=== PATIENT | male | born 1965 | race Caucasian/White ===

== ENCOUNTER 2019-12-03 08:34 | Emergency (ER) | payer BC ==
[2019-12-03 09:49] LABS: Basophils % (A) 0 %; Eosinophils # (A) 0.3 k/uL (0-0.7); Eosinophils % (A) 3 %; HCT 37.8 % (39.0-53.0); HGB 12.6 gm/dL (13.0-17.5); Lymphocytes % (A) 11 %; MCHC 33.3 g/dL (31.0-37.0); Mean Platelet Volume 8.2; Monocytes # (A) 0.7 k/uL (0-1.0); Monocytes % (A) 7 %; Neutrophils # (A) 7.3 k/uL (1.3-7.7); Neutrophils % (A) 77 %; Platelet Count 151 k/uL (150-450); RBC 3.94 m/uL (4.30-5.90); RDW 12.6 % (11.5-15.5); WBC 9.5 k/uL (3.8-10.6)
[2019-12-03 10:03] LABS: ALT 20 U/L (4-49); AST 24 U/L (17-59); African American GFR (CKD) >90 (>60 ml/min/1.73 sqM); Albumin 4.2 g/dL (3.5-5.0); Alkaline Phosphatase 105 U/L (38-126); Anion Gap 9 mmol/L; Blood Urea Nitrogen 18 mg/dL (9-20); C Reactive Protein 68.7 mg/L (<10.0); Calcium 9.1 mg/dL (8.4-10.2); Carbon Dioxide 25 mmol/L (22-30); Chloride 100 mmol/L (98-107); Glucose 113 mg/dL (74-99); Non-African American GFR(CKD) >90 (>60 ml/min/1.73 sqM); Potassium 4.1 mmol/L (3.5-5.1); Sodium 134 mmol/L (137-145); Total Bilirubin 0.5 mg/dL (0.2-1.3); Total Protein 7.2 g/dL (6.3-8.2)
--- NOTE | 2019-12-03 10:20 | XR ---
EXAMINATION TYPE: XR elbow complete LT DATE OF EXAM: 12/03/2019 COMPARISON: NONE HISTORY: Pain FINDINGS: Three views of the elbow demonstrate no pathologic joint effusion. The osseous structures are intact . There is no acute fracture or dislocation. Small olecranon spur. IMPRESSION: 1. No acute fracture or dislocation. If symptoms persist follow-up study in 7 to 10 days could be ob tained.
[2019-12-03] MEDS ORDERED: AMPICILLIN-SULBACTAM 3 GM in SODIUM CHLORIDE 0.9% 100 ML IVPB STA (10:32)
--- NOTE | 2019-12-03 10:45 | US ---
EXAMINATION TYPE: US extremity nonvasc mass LT DATE OF EXAM: 12/03/2019 COMPARISON: NONE CLINICAL HISTORY: swelling, pain, r/o abscess vs bursitis. Patient has swelling and redness surrounding his left elbow. This has been going on for 3 days, he zuluaga s no fever. At left elbow there is an irregular shaped hypoechoic area with surrounding increased vascularity daniel suring 3.8 x 0.3 x 2.8cm IMPRESSION: 1. There is an irregular shaped hypoechoic area surrounding area of the left elbow measuring 3.8 cm. Could represent an area of cellulitis, bursitis or developing phlegmon, abscess. Recommend follow-up MRI.
[2019-12-03] MEDS ORDERED: LIDOCAINE 1% INJ 10MG/ML (20 ML MDV) SQ ONE (10:57)
--- NOTE | 2019-12-03 12:07 | ED ---
Upper Extremity HPI - General Chief Complaint: Extremity Injury, Upper Stated Complaint: Arm swollen/red Time Seen by Provider: 12/03/19 08:45 Source: patient Mode of arrival: ambulatory Limitations: no limitations - History of Present Illness Initial Comments: The patient is a 54-year-old male with past medical history of hypertension and hyperlipidemia who presents to the emergency room with reported left elbow swelling. He states that he [place] [address] and suffered a small abrasion to the left lateral aspect of his elbow. Several days ago he formed a scab over the area and ended up removing the scab. Denies any drainage from the site henley norma since he manipulated the scab he has developed redness and swelling to his whole elbow region. He admits that it is minimally painful with movement. He continues to have full normal range of motion movement. Denies any fevers or chills. No nausea or vomiting. Denies any shoulder or wrist pain. The patient is right hand dominant. Denies any weakness in that extremity. Has not taken any medications for her symptoms. No crepitance. Denies any numbness or tingling. There are no alleviating, precipitating or modifying factors - Related Data Home Medications Medication Instructions Recorded Confirmed Cyclobenzaprine [Flexeril] 10 mg PO DAILY PRN 12/03/19 12/03/19 Gemfibrozil [Lopid] 600 mg PO Q12H 12/03/19 12/03/19 Multivitamins, Thera [Multivitamin 1 tab PO DAILY 12/03/19 12/03/19 (formulary)] Naproxen [Naprosyn] 500 mg PO Q12HR PRN 12/03/19 12/03/19 Omeprazole 20 mg PO DAILY PRN 12/03/19 12/03/19 Rosuvastatin [Crestor] 10 mg PO DAILY 12/03/19 12/03/19 amLODIPine BESYLATE/BENAZEPRIL 1 cap PO DAILY 12/03/19 12/03/19 [amLODIPine BESYLATE/BENAZEPRIL 10-20 MG] Previous Rx's Medication Instructions Recorded Cephalexin [Keflex] 500 mg PO QID #28 cap 12/03/19 Allergies Allergy/AdvReac Type Severity Reaction Status Date / Time No Known Allergies Allergy Verified 12/03/19 10:08 Review of Systems ROS Statement: Those systems with pertinent positive or pertinent negative responses have been documented in the HPI. ROS Other: All systems not noted in ROS Statement are negative. Past Medical History Past Medical History: Hyperlipidemia, Hypertension History of Any Multi-Drug Resistant Organisms: None Reported Additional Past Surgical History / Comment(s): rt bicep surgery Past Psychological History: No Psychological Hx Reported Smoking Status: Never smoker Past Alcohol Use History: Daily Past Drug Use History: None Reported General Exam Limitations: no limitations General appearance: alert, in no apparent distress Head exam: Present: atraumatic, normocephalic, normal inspection Respiratory exam: Present: normal lung sounds bilaterally. Absent: respiratory distress, wheezes, rales, rhonchi, stridor Cardiovascular Exam: Present: regular rate, normal rhythm, normal heart sounds. Absent: systolic murmur, diastolic murmur, rubs, gallop, clicks Extremities exam: Present: tenderness, other (redness to skin over left lateral elbow. Palpable fluctuance possible consistent with bursa. No pain with flexion, extention, supination or pronation of the elbow. No joint swelling or tenderness to palpation. No weakness. No concerning signs of septic joint. ) Course Vital Signs 12/03/19 12/03/19 12/03/19 08:42 08:45 09:45 Temperature 98.2 F Pulse Rate 97 91 Respiratory 18 20 20 Rate Blood Pressure 140/85 170/86 O2 Sat by Pulse 97 98 Oximetry 12/03/19 12/03/19 10:00 12:38 Temperature 98 F Pulse Rate 90 71 Respiratory 20 18 Rate Blood Pressure 150/81 148/78 O2 Sat by Pulse 98 98 Oximetry Medical Decision Making - Medical Decision Making Upon arrival the patient is placed in room 7. A thorough history and physical exam is performed. Patient continues to have full normal range of motion without pain therefore septic joint is unlikely. There is mild fluctuance to the posterior aspect of the elbow that may be consistent with a bursitis. Because of the redness and swelling and did recommend some laboratory studies. The patient did have trauma to the area therefore I recommended a x-ray. Ultrasound will be performed to look for a drainable fluid collection. Laboratory studies demonstrated a white blood cell count 9.5. CMP is unremarkable. C-reactive protein elevated at 60.7. Extremity ultrasound demonstrates an irregularly shaped hypoechoic area surrounding the left elbow which measures 3.8 cm. May represent cellulitis, bursitis or developing phlegmon. X-ray demonstrates no gas formation. No acute fracture dislocation. I did recommend attempted drainage of the fluid collection as there is some fluctuance. I do believe this is consistent with possible infected bursitis. The patient does allow me to complete this. Fluid results show 16,625 red blood cells, 1850 nucleated cells with 94 white blood cells. The specimen is sent for culture. I did provide the patient with a dose of Unasyn while in the emergency department. I did recommend treatment at home with Keflex. I provided the patient will follow up information for [facility]. He is to follow with his doctor within 2-4 days and make an appointment with the [facility] within 1 week. She has any new or worsening symptoms he should return to the emergency room. Strict parameters were discussed with him. The patient was then discharged in stable condition - Lab Data Result diagrams: 12/03/19 09:18 12/03/19 09:18 Lab Results 12/03/19 12/03/19 12/03/19 Range/Units 09:18 09:18 12:30 WBC 9.5 (3.8-10.6) k/uL RBC 3.94 L (4.30-5.90) m/uL Hgb 12.6 L (13.0-17.5) gm/dL Hct 37.8 L (39.0-53.0) % MCV 96.0 (80.0-100.0) fL MCH 32.0 (25.0-35.0) pg MCHC 33.3 (31.0-37.0) g/dL RDW 12.6 (11.5-15.5) % Plt Count 151 (150-450) k/uL Neutrophils % 77 % Lymphocytes % 11 % Monocytes % 7 % Eosinophils % 3 % Basophils % 0 % Neutrophils # 7.3 (1.3-7.7) k/uL Lymphocytes # 1.0 (1.0-4.8) k/uL Monocytes # 0.7 (0-1.0) k/uL Eosinophils # 0.3 (0-0.7) k/uL Basophils # 0.0 (0-0.2) k/uL Sodium 134 L (137-145) mmol/L Potassium 4.1 (3.5-5.1) mmol/L Chloride 100 (98-107) mmol/L Carbon Dioxide 25 (22-30) mmol/L Anion Gap 9 mmol/L BUN 18 (9-20) mg/dL Creatinine 0.79 (0.66-1.25) mg/dL Est GFR (CKD-EPI)AfAm >90 (>60 ml/min/1.73 sqM) Est GFR (CKD-EPI)NonAf >90 (>60 ml/min/1.73 sqM) Glucose 113 H (74-99) mg/dL Calcium 9.1 (8.4-10.2) mg/dL Total Bilirubin 0.5 (0.2-1.3) mg/dL AST 24 (17-59) U/L ALT 20 (4-49) U/L Alkaline Phosphatase 105 (38-126) U/L C-Reactive Protein 68.7 H (<10.0) mg/L Total Protein 7.2 (6.3-8.2) g/dL Albumin 4.2 (3.5-5.0) g/dL Fluid Source Synovial Fluid Color [place] Fluid Appearance Blood Tinged Fluid RBC 69181 /uL Fluid Nucleated Cells 1850 /uL Fluid Polynuclear WBCs 94 % Fluid Mononuclear WBCs 6 % Disposition Clinical Impression: Bursitis, Cellulitis of left arm Disposition: HOME SELF-CARE Condition: Stable Instructions (If sedation given, give patient instructions): Cellulitis (ED), Elbow Bursitis (ED) Additional Instructions: Please follow up with your PCP in 2-4 days. Also follow up with the [facility] in 1 week for re-evaluation. Return to the emergency department for any new or worsening symptoms Prescriptions: Cephalexin [Keflex] 500 mg PO QID #28 cap Is patient prescribed a controlled substance at d/c from ED?: No Referrals: Errol Mcmullen MD [Primary Care Provider] - 1-2 days Carmen Velez DO [Doctor of Osteopathic Medicine] - 1-2 days Time of Disposition: 12:06
[2019-12-03 12:39] VITALS: BP 148/78; PULSE 71; RESP 18; TEMP 98
[2019-12-03 14:48] LABS: Appearance,BF Blood Tinged; Color,BF Pink; Nucleated Cells, Body Fluid 1850 /uL; RBC, Body Fluid 16625 /uL
[2019-12-03 14:50] LABS: Mononuclear WBC,Body Fluid 6 %; Polynuclear WBC,Body Fluid 94 %; Total Cells Counted,Body Fluid 100
== END 2019-12-03 12:35 | disposition home or self-care (01) ==
LOC: EC 08:34
DX: M70.32 Other bursitis of elbow, left elbow (principal); L03.114 Cellulitis of left upper limb; I10 Essential (primary) hypertension; E78.5 Hyperlipidemia, unspecified; Z79.899 Other long term (current) drug therapy
CPT/HCPCS: 36415; 80053; 89050; 85025; 86140; 87070; 87205; 87077; 87186; 73080; 76882; 99284; 96365; 20606; J2001; J0295

== ENCOUNTER 2022-08-05 15:26 | Inpatient (IN) | payer BC ==
[2022-08-05] MEDS ORDERED: SODIUM CHLORIDE 0.9% 1,000 ML IV STA (15:54)
--- NOTE | 2022-08-05 15:54 | ED ---
General Adult HPI - General Chief complaint: Arrhythmia/Palpitations Stated complaint: AFlutter Time Seen by Provider: 08/05/22 15:31 Source: patient Mode of arrival: EMS Limitations: no limitations - History of Present Illness Initial comments: Dictation was produced using [employer] dictation software. please excuse any grammatical, word or spelling errors. Chief Complaint: 57-year-old male presents to the emergency department for abn ormal EKG History of Present Illness: Patient is a 49-year-old value sent to the emergency department from urgent care clinic for abnormal EKG. Patient is a history of dyslipidemia and hypertension. Over the last several days he's been having nasal congestion and runny nose. He went to go be evaluated for that. EKG performed for tachycardia on have concerns for new onset atrial flutter. Citlalli ent has any palpitations. Has no chest pain. He does feel fatigued lack of appetite. Patient does not taking any coagulation medications. The ROS documented in this emergency department record has been reviewed and confirmed by me. Those systems with pertinent positive or negative responses zuluaga ve been documented in the HPI. All other systems are other negative and/or noncontributory. PHYSICAL EXAM: General Impression: Alert and oriented x3, not in acute distress HEENT: Normocephalic atraumatic, extra-ocular movements intact, pupils equal and reactive to light bilaterally, mucous membranes moist, nasal congestion Cardiovascular: Tachycardic Chest: Able to complete full sentences, no retractions, no tachypnea Abdomen: abdomen soft, non-tender, non-distended, no organomegaly Musculoskeletal: Pulses present and equal in all extremities, no peripheral edema Motor: no focal deficits noted Neurological: CN II-XII grossly intact, no focal motor or sensory deficits noted Skin: Intact with no visualized rashes Psych: Normal affect and mood ED course: 57-year-old male presents emergency department for abnormal EKG. At EKG performed at the urgent care office showing new onset atrial flutter. Vital signs upon arrival shows tachycardia of 131, rest of vital signs within acceptable limits. EKG shows atrial flutter. Patient started on heparin and Cardizem. His point unclear when patient's onset of symptoms began. He denies ever having had symptoms of palpitations. Laboratory evaluation obtained. CBC unremarkable. Cardiac panel is negative. Metabolic panel shows sodium 120 with gap acidosis. Heart enzymes normal. Chest x-ray shows no acute processes. Reevaluated at 4:50 PM found with stable medical condition. Patient not showing any signs of distress. Patient will be admitted to [facility] with consultation cardiology. EKG interpretation: Ventricular rate 134, atrial flutter, QS 100, QTC 372. No MO prolongation, no QTC prolongation, no ST or T-wave changes noted. - Related Data Home Medications Medication Instructions Recorded Confirmed Cyclobenzaprine [Flexeril] 10 mg PO DAILY PRN 12/03/19 12/03/19 Multivitamins, Thera [Multivitamin 1 tab PO DAILY 12/03/19 12/03/19 (formulary)] Naproxen [Naprosyn] 500 mg PO Q12HR PRN 12/03/19 12/03/19 Omeprazole 20 mg PO DAILY PRN 12/03/19 12/03/19 Rosuvastatin [Crestor] 10 mg PO DAILY 12/03/19 12/03/19 amLODIPine BESYLATE/BENAZEPRIL 1 cap PO DAILY 12/03/19 12/03/19 [amLODIPine BESYLATE/BENAZEPRIL 10-20 MG] gemfibroziL [Lopid] 600 mg PO Q12H 12/03/19 12/03/19 Previous Rx's Medication Instructions Recorded cephALEXin [Keflex] 500 mg PO QID #28 cap 12/03/19 Allergies Allergy/AdvReac Type Severity Reaction Status Date / Time No Known Allergies Allergy Verified 08/05/22 15:34 Review of Systems ROS Statement: Those systems with pertinent positive or pertinent negative responses have been documented in the HPI. ROS Other: All systems not noted in ROS Statement are negative. Past Medical History Past Medical History: Hyperlipidemia, Hypertension History of Any Multi-Drug Resistant Organisms: None Reported Additional Past Surgical History / Comment(s): rt bicep surgery Past Psychological History: No Psychological Hx Reported Past Alcohol Use History: Daily Past Drug Use History: None Reported General Exam Limitations: no limitations Course Vital Signs 08/05/22 15:30 Temperature 97 F L Pulse Rate 131 H Respiratory 18 Rate Blood Pressure 167/106 O2 Sat by Pulse 100 Oximetry Medical Decision Making - Lab Data Result diagrams: 08/05/22 15:42 08/05/22 15:42 Lab Results 08/05/22 08/05/22 08/05/22 Range/Units 15:42 15:42 15:42 WBC 7.8 (3.8-10.6) k/uL RBC 4.38 (4.30-5.90) m/uL Hgb 13.5 (13.0-17.5) gm/dL Hct 40.8 (39.0-53.0) % MCV 93.2 (80.0-100.0) fL MCH 30.7 (25.0-35.0) pg MCHC 33.0 (31.0-37.0) g/dL RDW 15.2 (11.5-15.5) % Plt Count 199 (150-450) k/uL MPV 7.9 Neutrophils % 70 % Lymphocytes % 20 % Monocytes % 5 % Eosinophils % 2 % Basophils % 1 % Neutrophils # 5.5 (1.3-7.7) k/uL Lymphocytes # 1.6 (1.0-4.8) k/uL Monocytes # 0.4 (0-1.0) k/uL Eosinophils # 0.2 (0-0.7) k/uL Basophils # 0.1 (0-0.2) k/uL PT 12.8 H (9.0-12.0) sec INR 1.2 H (<1.2) APTT 27.2 (22.0-30.0) sec Sodium 128 L (137-145) mmol/L Potassium 3.5 (3.5-5.1) mmol/L Chloride 97 L (98-107) mmol/L Carbon Dioxide 14 L (22-30) mmol/L Anion Gap 17 mmol/L BUN 13 (9-20) mg/dL Creatinine 0.58 L (0.66-1.25) mg/dL Est GFR (CKD-EPI)AfAm >90 (>60 ml/min/1.73 sqM) Est GFR (CKD-EPI)NonAf >90 (>60 ml/min/1.73 sqM) Glucose 112 H (74-99) mg/dL Calcium 8.4 (8.4-10.2) mg/dL Magnesium 1.4 L (1.6-2.3) mg/dL Total Bilirubin 0.9 (0.2-1.3) mg/dL AST 148 H (17-59) U/L ALT 61 H (4-49) U/L Alkaline Phosphatase 108 (38-126) U/L Troponin I (0.000-0.034) ng/mL Total Protein 6.8 (6.3-8.2) g/dL Albumin 4.2 (3.5-5.0) g/dL 08/05/22 Range/Units 15:42 WBC (3.8-10.6) k/uL RBC (4.30-5.90) m/uL Hgb (13.0-17.5) gm/dL Hct (39.0-53.0) % MCV (80.0-100.0) fL MCH (25.0-35.0) pg MCHC (31.0-37.0) g/dL RDW (11.5-15.5) % Plt Count (150-450) k/uL MPV Neutrophils % % Lymphocytes % % Monocytes % % Eosinophils % % Basophils % % Neutrophils # (1.3-7.7) k/uL Lymphocytes # (1.0-4.8) k/uL Monocytes # (0-1.0) k/uL Eosinophils # (0-0.7) k/uL Basophils # (0-0.2) k/uL PT (9.0-12.0) sec INR (<1.2) APTT (22.0-30.0) sec Sodium (137-145) mmol/L Potassium (3.5-5.1) mmol/L Chloride (98-107) mmol/L Carbon Dioxide (22-30) mmol/L Anion Gap mmol/L BUN (9-20) mg/dL Creatinine (0.66-1.25) mg/dL Est GFR (CKD-EPI)AfAm (>60 ml/min/1.73 sqM) Est GFR (CKD-EPI)NonAf (>60 ml/min/1.73 sqM) Glucose (74-99) mg/dL Calcium (8.4-10.2) mg/dL Magnesium (1.6-2.3) mg/dL Total Bilirubin (0.2-1.3) mg/dL AST (17-59) U/L ALT (4-49) U/L Alkaline Phosphatase (38-126) U/L Troponin I <0.012 (0.000-0.034) ng/mL Total Protein (6.3-8.2) g/dL Albumin (3.5-5.0) g/dL Critical Care Time Critical Care Time: Yes Total Critical Care Time: 33 Disposition Clinical Impression: New onset a-fib Disposition: ADMITTED IP TO THIS [facility] Condition: Serious Referrals: Errol Mcmullen MD [Primary Care Provider] - 1-2 days Decision Time: 16:49
[2022-08-05 16:03] LABS: Basophils # (A) 0.1 k/uL (0-0.2); Basophils % (A) 1 %; Eosinophils # (A) 0.2 k/uL (0-0.7); Eosinophils % (A) 2 %; HCT 40.8 % (39.0-53.0); HGB 13.5 gm/dL (13.0-17.5); Lymphocytes # (A) 1.6 k/uL (1.0-4.8); Lymphocytes % (A) 20 %; MCH 30.7 pg (25.0-35.0); MCV 93.2 fL (80.0-100.0); Mean Platelet Volume 7.9; Monocytes # (A) 0.4 k/uL (0-1.0); Monocytes % (A) 5 %; Neutrophils # (A) 5.5 k/uL (1.3-7.7); Neutrophils % (A) 70 %; Platelet Count 199 k/uL (150-450); RBC 4.38 m/uL (4.30-5.90); RDW 15.2 % (11.5-15.5); WBC 7.8 k/uL (3.8-10.6)
--- NOTE | 2022-08-05 16:12 | XR ---
EXAMINATION TYPE: XR chest 2V DATE OF EXAM: 08/05/2022 4:06 PM COMPARISON: None TECHNIQUE: XR chest 2V Frontal and lateral views of the chest. CLINICAL INDICATION:Male, 57 years old with history of palpitations; FINDINGS: Lungs/Pleura: There is no evidence of pleural effusion, focal consolidation, or pneumothorax. Pulmonary vascularity: Unremarkable. Heart/mediastinum: Cardiomediastinal silhouette is unremarkable. Musculoskeletal: No acute osseous pathology. IMPRESSION: No acute cardiopulmonary disease/process.
[2022-08-05 16:14] LABS: INR 1.2 (<1.2); Partial Thromboplastin Time 27.2 sec (22.0-30.0); Prothrombin Time 12.8 sec (9.0-12.0)
[2022-08-05 16:16] LABS: ALT 61 U/L (4-49); AST 148 U/L (17-59); African American GFR (CKD) >90 (>60 ml/min/1.73 sqM); Albumin 4.2 g/dL (3.5-5.0); Alkaline Phosphatase 108 U/L (38-126); Anion Gap 17 mmol/L; Blood Urea Nitrogen 13 mg/dL (9-20); Calcium 8.4 mg/dL (8.4-10.2); Carbon Dioxide 14 mmol/L (22-30); Chloride 97 mmol/L (98-107); Glucose 112 mg/dL (74-99); Magnesium 1.4 mg/dL (1.6-2.3); Non-African American GFR(CKD) >90 (>60 ml/min/1.73 sqM); Potassium 3.5 mmol/L (3.5-5.1); Sodium 128 mmol/L (137-145); Total Bilirubin 0.9 mg/dL (0.2-1.3); Total Protein 6.8 g/dL (6.3-8.2)
[2022-08-05] MEDS ORDERED: HEPARIN SODIUM 1,000 UN/ML (10ML VL) IV ONE (16:29)
[2022-08-05] MEDS ORDERED: HEPARIN SODIUM 1,000 UN/ML (10ML VL) IV PRN (16:29)
[2022-08-05] MEDS ORDERED: NALOXONE 0.4 MG/ML 1 ML VIAL IV PRN (16:43)
[2022-08-05] MEDS ORDERED: OXYMETAZOLINE 0.05% NASL SPRAY 1 SPRAY BOTTLE NASAL STA (16:45)
[2022-08-05] MEDS: MAGNESIUM SULFATE-D5W PMX 1 GM in DEXTROSE/WATER 1 100ML.BAG IVPB SCH ×2 (17:17→18:40)
[2022-08-05] MEDS: HEPARIN SOD,PORK IN 0.45% NACL 25,000 UNIT in 0.45% NACL 1 250ML.BAG IV SCH (17:20)
[2022-08-05] MEDS: SODIUM CHLORIDE 0.9% 1,000 ML IV SCH (17:22)
[2022-08-05] MEDS ORDERED: DILTIAZEM DRIP BOLUS FROM BAG 1 MG SOLN IV ONE (18:12)
[2022-08-05] MEDS ORDERED: LORazepam 2 MG/ML INJ IV PRN ×3 (18:33)
[2022-08-05] MEDS ORDERED: THIAMINE 100 MG/ML 2 ML VIAL IM STA ×2 (18:33→21:56)
--- NOTE | 2022-08-05 18:37 | P.HPIM ---
History of Present Illness H&P Date: 08/05/22 Chief Complaint: fatigue Patient is a 57-year-old male with past medical history of hypertension, dyslipidemia, GERD, alcohol dependence presenting with tachycardia from PCP office. He claims that over the last month or so he's been having persistent nasal congestion, requiring nasal sprays and [id number] ALLERGY medications. However, over the last 1 week, he is being noticing some mild shortness of breath, lightheadedness, and general fatigue. In the last 2 days, he has also noticed increase number of bowel movements which are loose. He anabel es any chest pain, palpitations, nausea, vomiting, abdominal pain, constipation, urinary complaints. He did claim that he has been more thirsty recently. He decided to go to his PCP and was found to have elevated heart rate. He was then referred to the hospital. In the ED, afebrile, BP of 167/106, heart rate 131, respiratory rate 18, and 100% on room air. His EKG showed atrial flutter/tachycardia with RVR. Chest x- ray was unremarkable. He is given diltiazem IV bolus once, and started on d iltiazem drip. He is also started on heparin drip. Lab work was remarkable for mild hyponatremia of 128, magnesium of 1.4. He is also given IV magnesium sulfate. Pertinent positives and negatives as discussed in HPI, a complete review of systems was performed and all other systems are negative. Patient seen and examined at bedside. Vital signs reviewed General: nontoxic, no distress, appears at stated age Derm: warm, dry Head: atraumatic, normocephalic, symmetric Eyes: EOMI, no lid lag, anicteric sclera, pupils equal round reactive to light ENT: Nose and ears atraumatic, no thrush, no pharyngeal erythema Neck: No thyromegaly, no cervical lymphadenopathy, trachea midline, supple Mouth: no lip lesion, mucus membranes slightly dry Cardiovascular: S1S2, no murmur, tachycardic, regular, trace peripheral edema Lungs: clear to auscultation bilateral, no rhonchi, no rales, no wheeze, no accessory muscle use Abdominal: soft, nontender to palpation, no guarding, no appreciable organome adithya, normal bowel sounds Ext: no gross muscle atrophy, muscle strength muscle strength 5 out of 5 in all 4 extremities, no contractures Neuro: CN II-XII grossly intact, light touch intact all 4 extremities, finger to nose within normal limits, Psych: Alert, oriented, appropriate affect Assessment/Plan: New-onset atrial flutter, RVR -Unknown cause -TSH pending -Echo pending -Diltiazem drip for rate control -Heparin drip started in the emergency -CHADVASC score of only 1, we'll evaluate the need for anticoagulation based on echo and further lab work -cardiology consult Hypomagnesemia -Replete Alcohol dependence -Last drink was 08/02 -Daily alcohol use -alcohol withdrawal protocol Hyponatremia -Likely hypovolemic in the setting of diarrhea -IV fluids Nasal congestion - afrin nasal spray Chronic medical problems: Hypertension Dyslipidemia -Continue home medications The patient is admitted with an anticipated greater than 2 midnight stay for evaluation of atrial flutter. Surrogate decision-maker: CODE STATUS:full code DVT prophylaxis: on heparin gtt Anticipated discharge date: 08/[address]: home A total of 40 minutes was spent on the care of this complex patient more than 50% of the time was spent in counseling and care coordination. Past Medical History Past Medical History: Hyperlipidemia, Hypertension History of Any Multi-Drug Resistant Organisms: None Reported Additional Past Surgical History / Comment(s): rt bicep surgery Past Psychological History: No Psychological Hx Reported Smoking Status: Never smoker Past Alcohol Use History: Daily Past Drug Use History: None Reported Medications and Allergies Home Medications Medication Instructions Recorded Confirmed Type Cyclobenzaprine [Flexeril] 10 mg PO DAILY PRN 12/03/19 08/05/22 History Multivitamins, Thera [Multivitamin 1 tab PO DAILY 12/03/19 08/05/22 History (formulary)] Naproxen [Naprosyn] 500 mg PO Q12HR PRN 12/03/19 08/05/22 History Omeprazole 20 mg PO DAILY PRN 12/03/19 08/05/22 History Rosuvastatin [Crestor] 10 mg PO DAILY 12/03/19 08/05/22 History amLODIPine BESYLATE/BENAZEPRIL 1 cap PO DAILY 12/03/19 08/05/22 History [amLODIPine BESYLATE/BENAZEPRIL 10-20 MG] gemfibroziL [Lopid] 600 mg PO BID 12/03/19 08/05/22 History Fexofenadine/Pseudoephedrine 1 tab PO DAILY 08/05/22 08/05/22 History [Sujata-D 24 Hour Tablet] Furosemide [Lasix] 20 mg PO DAILY PRN 08/05/22 08/05/22 History icosapent ethyL [Icosapent Ethyl] 2 gm PO BID 08/05/22 08/05/22 History Allergies Allergy/AdvReac Type Severity Reaction Status Date / Time No Known Allergies Allergy Verified 08/05/22 16:49 Physical Exam Vitals: Vital Signs Temp Pulse Resp BP Pulse Ox 08/05/22 18:10 133 H 20 145/112 98 08/05/22 15:30 97 F L 131 H 18 167/106 100 Intake and Output 08/05/22 08/05/22 08/05/22 06:59 14:59 22:59 Other: Weight 96.162 kg Results CBC & Chem 7: 08/05/22 15:42 08/05/22 15:42 Labs: Abnormal Lab Results - Last 24 Hours (Table) 08/05/22 08/05/22 Range/Units 15:42 15:42 PT 12.8 H (9.0-12.0) sec INR 1.2 H (<1.2) Sodium 128 L (137-145) mmol/L Chloride 97 L (98-107) mmol/L Carbon Dioxide 14 L (22-30) mmol/L Creatinine 0.58 L (0.66-1.25) mg/dL Glucose 112 H (74-99) mg/dL Magnesium 1.4 L (1.6-2.3) mg/dL AST 148 H (17-59) U/L ALT 61 H (4-49) U/L
[2022-08-05] MEDS: DILTIAZEM 125 MG in SODIUM CHLORIDE 0.9% 100 ML IV SCH (18:40)
[2022-08-05] MEDS: Icosapent Ethyl [Icosapent Ethyl] 1 GM Capsule PO SCH (21:15)
[2022-08-05] MEDS ORDERED: LORazepam 1 MG/0.5 ML VIAL IV PRN (21:29)
[2022-08-05] MEDS: LORazepam 1 MG/0.5 ML VIAL IV PRN ×2 (21:37→23:59)
[2022-08-06] MEDS: LORazepam 1 MG/0.5 ML VIAL IV PRN ×3 (01:03→22:02)
[2022-08-06] MEDS: SODIUM CHLORIDE 0.9% 1,000 ML IV SCH ×3 (01:12→13:53)
[2022-08-06] MEDS: THIAMINE 100 MG TAB PO SCH ×2 (06:32→16:32)
[2022-08-06] MEDS: DILTIAZEM 125 MG in SODIUM CHLORIDE 0.9% 100 ML IV SCH ×2 (06:50→22:58)
[2022-08-06 09:05] LABS: African American GFR (CKD) >90 (>60 ml/min/1.73 sqM); Anion Gap 11 mmol/L; Blood Urea Nitrogen 8 mg/dL (9-20); Calcium 8.1 mg/dL (8.4-10.2); Carbon Dioxide 21 mmol/L (22-30); Chloride 103 mmol/L (98-107); Glucose 110 mg/dL (74-99); Non-African American GFR(CKD) >90 (>60 ml/min/1.73 sqM); Sodium 135 mmol/L (137-145)
[2022-08-06] MEDS: Icosapent Ethyl [Icosapent Ethyl] 1 GM Capsule PO SCH ×2 (09:52→22:10)
[2022-08-06] MEDS: MULTIVITAMINS, THERA 1 EACH TAB PO SCH (09:56)
[2022-08-06] MEDS: amLODIPine 10 MG TAB PO SCH (09:56)
[2022-08-06] MEDS: ATORVASTATIN 20 MG TAB PO SCH (09:56)
[2022-08-06] MEDS: FENOFIBRATE 160 MG TAB PO SCH (09:56)
[2022-08-06] MEDS: lisinopriL 20 MG TAB PO SCH (09:56)
--- NOTE | 2022-08-06 10:19 | P.CRDCN ---
History of Present Illness History of present illness: HISTORY OF PRESENTING ILLNESS This is a pleasant 57-year-old male past medical history significant for hypertension, dyslipidemia. 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 We have been asked to see in consultation for new onset Atrial fibrillation RVR. Patient presents to the emergency department with complaints of generalized fatigue, nasal congestion, overall feeling "tired". He states his initial symptoms were worsening nasal congestion and runny nose, he thought it was his allergies, he then began to have generalized fatigue, tired. He went to urgent care to be evaluated. An EKG was performed which was abnormal and patient was sent to the emergency department. EKG and admission revealed atrial flutter with rapid ventricular response, heart rate 134. He was initially started on IV heparin and IV Cardizem drip. Patient denies any chest pain, palpitations, shortness of breath, lightheadedness, dizziness, syncope or near-syncope. He denies any prior history of CAD, [place], stroke, diabetes, Afib/flutter or any arrhythmia. Family history includes father had cardiac disease. He does endorse alcohol use. He denies illicit drug or tobacco use. DIAGNOSTICS EKG reveals atrial flutter with 2:1 conduction, heart 134 Telemetry tracings indicate atrial flutter with HR 120s-130s Chest xray no acute cardiopulmonary process Laboratory reviewed, CBC unremarkable, sodium 135, potassium 4.0, BUN 8, serum creatinine 0.7, troponin negative, TSH within normal limits, influenza, RSV and covid negative Current home medications include Lasix 20 mg daily, amlodipine/benazepril 1020 milligrams daily, rosuvastatin 10 mg daily REVIEW OF SYSTEMS At the time of my exam: CONSTITUTIONAL: Denies fever or chills. CARDIOVASCULAR: Denies chest pain, shortness of breath, orthopnea, PND or pa lpitations. RESPIRATORY: +nasal congestion, +rhinorrhea GASTROINTESTINAL: Denies abdominal pain, diarrhea, constipation, nausea or vomiting. MUSCULOSKELETAL: Denies myalgias. NEUROLOGIC: Denies numbness, tingling, headacbe or weakness. ENDOCRINE: Denies fatigue, weight change, polydipsia or polyurina. GENITOURINARY: Denies burning, hematuria or urgency with micturation. HEMATOLOGIC: Denies history of anemia or bleeding. PHYSICAL EXAMINATION Vitals 144/90, heart rate 120, afebrile, saturations 98% room air CONSTITUTIONAL: No apparent distress. HEENT: Head is normocephalic. Pupils are equal, round. Sclerae anicteric. Mucous membranes of the mouth are moist. No JVD. No carotid bruit. CHEST EXAMINATION: Lungs are clear to auscultation. No chest wall tenderness is noted on palpation or with deep breathing. HEART EXAMINATION: Irregular rate and rhythm. S1, S2 heard. No murmurs, gallops or rub. ABDOMEN: Soft, nontender. Positive bowel sounds. EXTREMITIES: 2+ peripheral pulses, no lower extremity edema and no calf tenderness. SKIN: warm, dry NEUROLOGIC EXAMINATION: Patient is awake, alert and oriented x3. ASSESSMENT Typical atrial flutter with RVR -[id number] score 1 History of hypertension Dyslipidemia PLAN Continue IV Cardizem and IV heparin Start metoprolol tartrate 25mg BID Patient will likely need SHAUN/Cardioversion NPO after midnight I have discussed the risks, benefits and alternative therapies for the above- mentioned procedure and for both sedation/analgesia, as they pertain to this patient. The patient has indicated understanding and acceptance of the risks a nd procedures discussed. Questions have been answered appropriately and he is agreeable to move forward with the above-stated procedure. Further recommendations based on clinical course Nurse practitioner note has been reviewed by physician. Signing provider agrees with the documented findings, assessment, and plan of care. Past Medical History Past Medical History: Hyperlipidemia, Hypertension History of Any Multi-Drug Resistant Organisms: None Reported Additional Past Surgical History / Comment(s): rt bicep surgery Past Psychological History: No Psychological Hx Reported Smoking Status: Former smoker Past Alcohol Use History: Daily Past Drug Use History: None Reported Medications and Allergies Home Medications Medication Instructions Recorded Confirmed Type Cyclobenzaprine [Flexeril] 10 mg PO DAILY PRN 12/03/19 08/05/22 History Multivitamins, Thera [Multivitamin 1 tab PO DAILY 12/03/19 08/05/22 History (formulary)] Naproxen [Naprosyn] 500 mg PO Q12HR PRN 12/03/19 08/05/22 History Omeprazole 20 mg PO DAILY PRN 12/03/19 08/05/22 History Rosuvastatin [Crestor] 10 mg PO DAILY 12/03/19 08/05/22 History amLODIPine BESYLATE/BENAZEPRIL 1 cap PO DAILY 12/03/19 08/05/22 History [amLODIPine BESYLATE/BENAZEPRIL 10-20 MG] gemfibroziL [Lopid] 600 mg PO BID 12/03/19 08/05/22 History Fexofenadine/Pseudoephedrine 1 tab PO DAILY 08/05/22 08/05/22 History [Sujata-D 24 Hour Tablet] Furosemide [Lasix] 20 mg PO DAILY PRN 08/05/22 08/05/22 History icosapent ethyL [Icosapent Ethyl] 2 gm PO BID 08/05/22 08/05/22 History Allergies Allergy/AdvReac Type Severity Reaction Status Date / Time No Known Allergies Allergy Verified 08/05/22 16:49 Physical Exam Vitals: Vital Signs Temp Pulse Pulse Resp BP BP Pulse Ox 08/06/22 04:00 97.8 F 120 H 19 144/90 98 08/06/22 00:09 97.7 F 139 H 18 120/87 97 08/05/22 21:08 98.0 F 134 H 16 144/95 98 08/05/22 18:45 135 H 24 146/100 98 08/05/22 18:15 134 H 18 145/112 98 08/05/22 18:10 133 H 20 145/112 98 08/05/22 15:30 97 F L 131 H 18 167/106 100 Intake and Output 08/05/22 08/06/22 08/06/22 22:59 06:59 14:59 Intake Total 200.041 160 Balance 200.041 160 Intake: Intake, IV Titration 200.041 Amount Diltiazem 125 mg In 121.667 Sodium Chloride 0.9% 100 ml @ 10 MG/HR 10 mls/hr IV .[id number] [facility] Rx#: [id number] Heparin Sod,Pork in 0.45% 78.374 NaCl 25,000 unit In 0.45 % NaCl 1 250ml.bag @ 10.4 UNITS/KG/HR 10.001 mls/ hr IV .Q24H [facility] Rx#: [id number] Oral 160 Other: Voiding Method Toilet Toilet Weight 96.162 kg Results 08/05/22 15:42 08/06/22 07:38 Cardiac Enzymes 08/05/22 08/05/22 Range/Units 15:42 15:42 AST 148 H (17-59) U/L Troponin I <0.012 (0.000-0.034) ng/mL Coagulation 08/05/22 08/05/22 08/06/22 Range/Units 15:42 23:54 07:38 PT 12.8 H (9.0-12.0) sec APTT 27.2 43.3 H 48.6 H (22.0-30.0) sec CBC 08/05/22 Range/Units 15:42 WBC 7.8 (3.8-10.6) k/uL RBC 4.38 (4.30-5.90) m/uL Hgb 13.5 (13.0-17.5) gm/dL Hct 40.8 (39.0-53.0) % Plt Count 199 (150-450) k/uL Comprehensive Metabolic Panel 08/05/22 08/06/22 Range/Units 15:42 07:38 Sodium 128 L 135 L (137-145) mmol/L Potassium 3.5 4.0 (3.5-5.1) mmol/L Chloride 97 L 103 (98-107) mmol/L Carbon Dioxide 14 L 21 L (22-30) mmol/L BUN 13 8 L (9-20) mg/dL Creatinine 0.58 L 0.71 (0.66-1.25) mg/dL Glucose 112 H 110 H (74-99) mg/dL Calcium 8.4 8.1 L (8.4-10.2) mg/dL AST 148 H (17-59) U/L ALT 61 H (4-49) U/L Alkaline Phosphatase 108 (38-126) U/L Total Protein 6.8 (6.3-8.2) g/dL Albumin 4.2 (3.5-5.0) g/dL Current Medications Generic Name Dose Route Start Last Admin Trade Name Freq PRN Reason Stop Dose Admin Amlodipine Besylate 10 mg 08/06/22 09:00 08/06/22 09:56 Amlodipine 10 Mg Tab PO 10 mg DAILY [facility] Administration Atorvastatin Calcium 20 mg 08/06/22 09:00 08/06/22 09:56 Atorvastatin 20 Mg Tab PO 20 mg DAILY [facility] Administration Fenofibrate 160 mg 08/06/22 09:00 08/06/22 09:56 Fenofibrate 160 Mg Tab PO 160 mg DAILY [facility] Administration Heparin Sodium (Porcine) 0 unit 08/05/22 16:29 Heparin Sodium 1,000 Un/Ml (10ml Vl) IV PER PROTOCOL PRN Low PTT Protocol Heparin Sodium/Sodium Chloride 250 mls @ 10.001 mls/hr 08/05/22 16:30 08/06/22 01:09 25,000 unit/ Sodium Chloride IV 12.48 units/kg/hr .Q24H [facility] 12.001 mls/hr Titration Protocol 10.4 UNITS/KG/HR Sodium Chloride 1,000 mls @ 130 mls/hr 08/05/22 16:45 08/06/22 06:31 Saline 0.9% IV 130 mls/hr .[id number] [facility] Administration Diltiazem HCl 125 mg/ Sodium 125 mls @ 10 mls/hr 08/05/22 18:30 08/06/22 06:50 Chloride IV 10 mg/hr .[id number] [facility] 10 mls/hr Administration 10 MG/HR Lisinopril 20 mg 08/06/22 09:00 08/06/22 09:56 Lisinopril 20 Mg Tab PO 20 mg DAILY [facility] Administration Lorazepam 1 mg 08/05/22 21:28 08/05/22 23:59 Lorazepam 1 Mg/0.5 Ml Vial IV 1 mg Q2HR PRN Administration CIWA 8 or 9 Lorazepam 1 mg 08/05/22 21:29 08/06/22 01:03 Lorazepam 1 Mg/0.5 Ml Vial IV 1 mg Q1HR PRN Administration CIWA 10 to 15 Lorazepam 2 mg 08/05/22 21:29 Lorazepam 1 Mg/0.5 Ml Vial IV 08/07/22 18:33 Q10M PRN CIWA 16 or higher Multivitamins 1 each 08/06/22 09:00 08/06/22 09:56 Multivitamins, Thera 1 Each Tab PO 1 each DAILY [facility] Administration Naloxone HCl 0.2 mg 08/05/22 16:43 Naloxone 0.4 Mg/Ml 1 Ml Vial IV Q2M PRN Opioid Reversal Icosapent Ethyl [ 2 gm 08/05/22 21:00 08/06/22 09:52 Icosapent Ethyl] 1 PO Not Given Gm Capsule BID [facility] Thiamine HCl 100 mg 08/06/22 07:30 08/06/22 06:32 Thiamine 100 Mg Tab PO 100 mg BID-W/MEALS [facility] Administration Intake and Output 08/05/22 08/06/22 08/06/22 22:59 06:59 14:59 Intake Total 200.041 160 Balance 200.041 160 Intake: Intake, IV Titration 200.041 Amount Diltiazem 125 mg In 121.667 Sodium Chloride 0.9% 100 ml @ 10 MG/HR 10 mls/hr IV .[id number] [facility] Rx#: [id number] Heparin Sod,Pork in 0.45% 78.374 NaCl 25,000 unit In 0.45 % NaCl 1 250ml.bag @ 10.4 UNITS/KG/HR 10.001 mls/ hr IV .Q24H [facility] Rx#: [id number] Oral 160 Other: Voiding Method Toilet Toilet Weight 96.162 kg 08/05/22 15:42 08/06/22 07:38
--- NOTE | 2022-08-06 13:07 | P.PN ---
Subjective Progress Note Date: 08/06/22 Principal diagnosis: tachycardia Hospital Course: 57-year-old male with history of hypertension, dyslipidemia, alcohol dependence, and GERD presented with tachycardia from his PCP office. Patient was found to be in atrial flutter with RVR. He was started on IV heparin drip and IV diltiazem drip. Cardiology consulted. Patient pending SHAUN and possible card ioversion. Subjective: Patient seen and examined at bedside. No acute events overnight. Patient continues to remain tachycardic despite diltiazem drip. He denies any further episodes of diarrhea. He denies any chest pain, palpitations, shortness of breath, lightheadedness, abdominal pain, urinary or bowel complaints. Pertinent positives and negatives as discussed above, a complete review of systems was performed and all other systems are negative. Vitals Signs Reviewed. General: nontoxic, no distress, appears at stated age Derm: warm, dry Head: atraumatic, normocephalic, symmetric Eyes: EOMI, no lid lag, anicteric sclera Mouth: no lip lesion, mucus membranes moist Cardiovascular: S1S2, tachycardic, irregular, no murmur Lungs: CTA bilateral, no rhonchi, no rales , no accessory muscle use Abdominal: soft, nontender to palpation, no guarding, no appreciable organomegaly Ext: no gross muscle atrophy, no edema, no contractures Neuro: CN II-XI grossly intact, no focal neuro deficits Psych: Alert, oriented, appropriate affect Assessment and Plan: New-onset atrial flutter, RVR -Unknown cause -TSH normal -Echo done, report pending -Diltiazem drip for rate control, metoprolol 25 twice a day -Heparin drip started in the emergency -CHADVASC score of only 1, we'll evaluate the need for anticoagulation based on echo -cardiology consult -Patient will be getting SHAUN and possible cardioversion -Nothing by mouth at midnight Hypomagnesemia -Replete Alcohol dependence -Last drink was 08/02 -Daily alcohol use -alcohol withdrawal protocol Hyponatremia - improved -Likely hypovolemic in the setting of diarrhea -IV fluids Nasal congestion - afrin nasal spray Chronic medical problems: Hypertension Dyslipidemia -Continue home medications F: NS at 130 E: replete PRN N: NPO at midnight A: as tolerated DVT ppx: On heparin drip Code status: Full Code Anticipated discharge place: Home Anticipated discharge time: Likely tomorrow after procedure Objective - Vital Signs Vital signs: Vital Signs Temp 98.2 F 08/06/22 11:35 Pulse 125 H 08/06/22 11:35 Resp 17 08/06/22 11:35 BP 135/84 08/06/22 11:35 Pulse Ox 98 08/06/22 11:35 FiO2 Intake & Output 08/05/22 08/06/22 08/06/22 18:59 06:59 18:59 Intake Total 200.041 160 Balance 200.041 160 Weight 96.162 kg 96.162 kg Intake: Intake, IV Titration 200.041 Amount Diltiazem 125 mg In 121.667 Sodium Chloride 0.9% 100 ml @ 10 MG/HR 10 mls/hr IV .[id number] [facility] Rx#: [id number] Heparin Sod,Pork in 0.45% 78.374 NaCl 25,000 unit In 0.45 % NaCl 1 250ml.bag @ 10.4 UNITS/KG/HR 10.001 mls/ hr IV .Q24H [facility] Rx#: [id number] Oral 160 Other: Voiding Method Toilet Toilet - Labs CBC & Chem 7: 08/05/22 15:42 08/06/22 07:38 Labs: Abnormal Lab Results - Last 24 Hours (Table) 08/05/22 08/05/22 08/05/22 Range/Units 15:42 15:42 23:54 PT 12.8 H (9.0-12.0) sec INR 1.2 H (<1.2) APTT 43.3 H (22.0-30.0) sec Sodium 128 L (137-145) mmol/L Chloride 97 L (98-107) mmol/L Carbon Dioxide 14 L (22-30) mmol/L BUN (9-20) mg/dL Creatinine 0.58 L (0.66-1.25) mg/dL Glucose 112 H (74-99) mg/dL Calcium (8.4-10.2) mg/dL Magnesium 1.4 L (1.6-2.3) mg/dL AST 148 H (17-59) U/L ALT 61 H (4-49) U/L 08/06/22 08/06/22 Range/Units 07:38 07:38 PT (9.0-12.0) sec INR (<1.2) APTT 48.6 H (22.0-30.0) sec Sodium 135 L (137-145) mmol/L Chloride (98-107) mmol/L Carbon Dioxide 21 L (22-30) mmol/L BUN 8 L (9-20) mg/dL Creatinine (0.66-1.25) mg/dL Glucose 110 H (74-99) mg/dL Calcium 8.1 L (8.4-10.2) mg/dL Magnesium (1.6-2.3) mg/dL AST (17-59) U/L ALT (4-49) U/L
[2022-08-06] MEDS: METOPROLOL TARTRATE 25 MG TAB PO SCH ×2 (13:53→22:03)
[2022-08-06] MEDS: HEPARIN SOD,PORK IN 0.45% NACL 25,000 UNIT in 0.45% NACL 1 250ML.BAG IV SCH (16:32)
[2022-08-07] MEDS: SODIUM CHLORIDE 0.9% 1,000 ML IV SCH ×2 (01:49→09:15)
[2022-08-07] MEDS: LORazepam 1 MG/0.5 ML VIAL IV PRN ×3 (02:44→12:49)
[2022-08-07] MEDS ORDERED: SODIUM CHLORIDE 0.9% 1,000 ML IV ONE ×3 (07:20→07:25)
[2022-08-07] MEDS ORDERED: LIDOCAINE 2% INJ 20 MG/ML (2 ML VIAL) ONE (07:40)
[2022-08-07] MEDS ORDERED: PROPOFOL 10 MG/ML 20 ML VIAL IV ONE (07:40)
[2022-08-07] MEDS: Icosapent Ethyl [Icosapent Ethyl] 1 GM Capsule PO SCH (09:05)
[2022-08-07] MEDS: THIAMINE 100 MG TAB PO SCH ×2 (09:12→17:20)
[2022-08-07] MEDS: METOPROLOL TARTRATE 25 MG TAB PO SCH (09:12)
[2022-08-07] MEDS: FENOFIBRATE 160 MG TAB PO SCH (09:12)
[2022-08-07] MEDS: MULTIVITAMINS, THERA 1 EACH TAB PO SCH (09:12)
[2022-08-07] MEDS: ATORVASTATIN 20 MG TAB PO SCH (09:12)
[2022-08-07] MEDS: lisinopriL 20 MG TAB PO SCH (09:12)
[2022-08-07] MEDS: amLODIPine 10 MG TAB PO SCH (09:12)
--- NOTE | 2022-08-07 09:34 | P.PCN ---
Date of Procedure: 08/07/22 Operative Findings: Cardioversion Report Performing physician Jose Albert M.D. Procedure performed Successful cardioversion of atrial flutter to normal sinus mechanism using 100 J at first attempt Indication Symptomatic atrial flutter Complication None Level of sedation The procedure was performed under deep sedation using propofol with STEEL WORKER in the room Procedure description After obtaining an informed consent the patient was brought to the recovery room. Sedation was introduced using propofol with STEEL WORKER in the room. Subsequently the patient cardioverted from atrial flutter to normal sinus mechanism using 100 J and first attempt Conclusion Successful cardioversion of atrial flutter to normal sinus mechanism using 100 J Postprocedure management Continue the current medical regimen Continue oral anticoagulation Follow-up with the patient
--- NOTE | 2022-08-07 09:37 | P.PCN ---
Date of Procedure: 08/07/22 Operative Findings: TRANSESOPHAGEAL ECHOCARDIOGRAM CORNER CUTTER: DIAZ BARROS MD, RPVI INDICATION: Rule out intracardiac thrombus before cardioversion SEDATION: Conscious sedation COMPLICATION: None LEVEL OF SEDATION The procedure was performed using propofol with BUSH REGENERATOR in the room PROCEDURE DESCRIPTION: After obtaining an informed consent, the patient was brought to the recovery room. Pulse oximetry and heart monitors were attached to the patient. The patient throat was sprayed using lidocaine. The patient was turned into left lateral position. After that a bite guard was placed. After that the patient was sedated using propofol. the transesophageal echocardiogram was advanced through a bite guard into the mid esophagus. A 2-D echocardiogram images, color Doppler images, continuous wave images, pulse-wave images, of various cardiac structure were performed. After that the transesophageal echocardiogram probe was advanced into the stomach and fixed to obtain transgastric view was. The probe was brought into the mid esophagus. Inter-atrial septum was interrogated using 2D images, color Doppler images, and then contrast study. After that transesophageal echocardiogram was withdrawn out and upon withdrawing the descending thoracic aorta all the way up to the arch was evaluated. FINDING: The left atrial appendage appeared to be free from any thrombus. The left atrium appears to be dilated. The left ventricular dimension and systolic function appeared to be within normal limits for the right ventricular dimension and systolic function appeared to be within normal limits. The aortic valve is trileaflet valve without stenosis or regurgitation. The mitral valve seems to be mildly thickened with mild MR. Normal tricuspid valve and pulmonic valve seen. Normal interatrial septum. CONCLUSION: 1. In fact left atrial appendage without any thrombus 2. Intact interatrial septum 3. Normal left ventricular dimension and systolic function 4. Normal right ventricular dimension and systolic function 5. Normal intracardiac valves 6. No evidence of pericardial effusion
[2022-08-07] MEDS ORDERED: METOPROLOL TARTRATE 25 MG TAB PO STA (10:02)
[2022-08-07] MEDS: DILTIAZEM 125 MG in SODIUM CHLORIDE 0.9% 100 ML IV SCH (10:14)
[2022-08-07 10:28] LABS: Basophils # (A) 0.1 k/uL (0-0.2); Basophils % (A) 2 %; Eosinophils # (A) 0.3 k/uL (0-0.7); Eosinophils % (A) 8 %; HCT 35.3 % (39.0-53.0); HGB 11.5 gm/dL (13.0-17.5); Lymphocytes # (A) 1.2 k/uL (1.0-4.8); Lymphocytes % (A) 30 %; MCH 31.5 pg (25.0-35.0); MCHC 32.4 g/dL (31.0-37.0); Mean Platelet Volume 8.2; Monocytes # (A) 0.3 k/uL (0-1.0); Monocytes % (A) 7 %; Neutrophils % (A) 51 %; Platelet Count 120 k/uL (150-450); RBC 3.64 m/uL (4.30-5.90); RDW 15.1 % (11.5-15.5); WBC 3.9 k/uL (3.8-10.6)
[2022-08-07] MEDS: APIXABAN 5 MG TAB PO SCH ×2 (11:07→21:02)
--- NOTE | 2022-08-07 14:19 | P.PN ---
Subjective Progress Note Date: 08/07/22 Principal diagnosis: tachycardia Hospital Course: 57-year-old male with history of hypertension, dyslipidemia, alcohol dependence, and GERD presented with tachycardia from his PCP office. Patient was found to be in atrial flutter with RVR. He was started on IV heparin drip and IV diltiazem drip. Cardiology consulted. Patient had SHAUN and cardioversion. Converted to Sinus. On metoprolol and eliquis. Likely discharge tomorrow. Subjective: Patient seen and examined at bedside. No acute events overnight. Patient is feeling better after the procedure. He denies any chest pain, palpitations, shortness of breath, lightheadedness, abdominal pain, urinary or bowel complaints. Pertinent positives and negatives as discussed above, a complete review of systems was performed and all other systems are negative. Vitals Signs Reviewed. General: nontoxic, no distress, appears at stated age Derm: warm, dry Head: atraumatic, normocephalic, symmetric Eyes: EOMI, no lid lag, anicteric sclera Mouth: no lip lesion, mucus membranes moist Cardiovascular: S1S2, regular, no murmur Lungs: CTA bilateral, no rhonchi, no rales , no accessory muscle use Abdominal: soft, nontender to palpation, no guarding, no appreciable organomegaly Ext: no gross muscle atrophy, no edema, no contractures Neuro: CN II-XI grossly intact, no focal neuro deficits Psych: Alert, oriented, appropriate affect Assessment and Plan: New-onset atrial flutter, RVR - resolved -s/p cardioversion - now in sinus -TSH normal -SHAUN normal -metoprolol and eliquis -cardiology following Hypomagnesemia -Replete Alcohol dependence -Last drink was 08/02 -Daily alcohol use -was on alcohol withdrawal protocol Hyponatremia - improved -Likely hypovolemic in the setting of diarrhea -s/p IV fluids Chronic medical problems: Hypertension Dyslipidemia Nasal congestion -Continue home medications F: PO E: replete PRN N: Heart healthy A: as tolerated DVT ppx: eliquis Code status: Full Code Anticipated discharge place: Home Anticipated discharge time: Likely tomorrow Objective - Vital Signs Vital signs: Vital Signs Temp 98.3 F 08/07/22 11:39 Pulse 101 H 08/07/22 11:39 Resp 18 08/07/22 11:39 BP 134/82 08/07/22 11:39 Pulse Ox 98 08/07/22 11:39 FiO2 Intake & Output 08/06/22 08/07/22 08/07/22 18:59 06:59 18:59 Intake Total 910.793 0 336 Balance 910.793 0 336 Weight 96.162 kg Intake: IV 100 Intake, IV Titration 510.793 0 Amount Diltiazem 125 mg In 79.167 0 Sodium Chloride 0.9% 100 ml @ 10 MG/HR 10 mls/hr IV .[id number] [facility] Rx#: [id number] Heparin Sod,Pork in 0.45% 171.626 NaCl 25,000 unit In 0.45 % NaCl 1 250ml.bag @ 10.4 UNITS/KG/HR 10.001 mls/ hr IV .Q24H [facility] Rx#: [id number] Sodium Chloride 0.9% 1, 260 000 ml @ 130 mls/hr IV . Q7H42M [facility] Rx#:[id number] Oral 400 236 Other: Voiding Method Toilet Toilet Toilet # Voids 1 2 - Labs CBC & Chem 7: 08/07/22 09:57 08/06/22 07:38 Labs: Abnormal Lab Results - Last 24 Hours (Table) 08/07/22 08/07/22 Range/Units 09:57 09:57 RBC 3.64 L (4.30-5.90) m/uL Hgb 11.5 L (13.0-17.5) gm/dL Hct 35.3 L (39.0-53.0) % Plt Count 120 L (150-450) k/uL APTT 32.0 H (22.0-30.0) sec
[2022-08-07] MEDS ORDERED: LORazepam 1 MG TAB PO STA (17:03)
[2022-08-07] MEDS ORDERED: LORazepam 1 MG/0.5 ML VIAL IV PRN ×3 (20:26)
[2022-08-07] MEDS ORDERED: LORazepam 1 MG/0.5 ML VIAL IV STA (20:26)
[2022-08-07] MEDS: METOPROLOL TARTRATE 50 MG TAB PO SCH (21:02)
[2022-08-07 23:55] VITALS: RESP 18
[2022-08-08] MEDS: Icosapent Ethyl [Icosapent Ethyl] 1 GM Capsule PO SCH ×2 (01:20→08:36)
[2022-08-08 03:44] VITALS: TEMP 97.8
[2022-08-08] MEDS: THIAMINE 100 MG TAB PO SCH (06:42)
[2022-08-08 08:28] VITALS: PULSE 94
[2022-08-08] MEDS: ATORVASTATIN 20 MG TAB PO SCH (08:29)
[2022-08-08] MEDS: APIXABAN 5 MG TAB PO SCH (08:29)
[2022-08-08] MEDS: FENOFIBRATE 160 MG TAB PO SCH (08:29)
[2022-08-08] MEDS: METOPROLOL TARTRATE 50 MG TAB PO SCH (08:29)
[2022-08-08] MEDS: lisinopriL 20 MG TAB PO SCH (08:29)
[2022-08-08] MEDS: MULTIVITAMINS, THERA 1 EACH TAB PO SCH (08:29)
[2022-08-08] MEDS ORDERED: amLODIPine 5 MG TAB PO SCH (09:00)
--- NOTE | 2022-08-08 12:02 | CA ---
Transthoracic Echo Report Name: Cheo Croft Age: 57 Gender: M : 1965 Exam Date: 08/06/2022 08:32 Exam Location: [place] [facility] Ht (in): 69 Wt (lb): 212 Ordering Physician: Sy Tavares MD Attending/Referring Phys: Certified Nuclear Medicine Technologist Maria Del Rosario Wiley RDCS Procedure CPT: Indications: new onset atrial flutter Cardiac Hx: Technical Quality: Fair Contrast 1: Total Dose (mL): Contrast 2: Total Dose (mL): MEASUREMENTS (Male / Female) Normal Values 2D ECHO LV Diastolic Diameter PLAX 3.7 cm 4.2 - 5.9 / 3.9 - 5.3 cm LV Systolic Diameter PLAX 2.6 cm IVS Diastolic Thickness 1.3 cm 0.6 - 1.0 / 0.6 - 0.9 cm LVPW Diastolic Thickness 1.3 cm 0.6 - 1.0 / 0.6 - 0.9 cm LV Relative Wall Thickness 0.7 RV Internal Dim ED PLAX 3.5 cm LA Systolic Diameter LX 3.7 cm 3.0 - 4.0 / 2.7 - 3.8 cm LA Volume 49.9 cm??? 18 - 58 / 22 - 52 cm??? M-MODE Aortic Root Diameter MM 3.6 cm MV E Point Septal Separation 0.5 cm AV Cusp Separation MM 2.3 cm DOPPLER AV Peak Velocity 130.1 cm/s AV Peak Gradient 6.8 mmHg MV Area PHT 5.7 cm??? MV Deceleration Time 87.7 ms TR Peak Velocity 228.3 cm/s TR Peak Gradient 20.8 mmHg Right Ventricular Systolic Press 25.4 mmHg FINDINGS Left Ventricle Left ventricular ejection fraction is estimated at 60-65 %. Left ventricular cavity size normal. Mild concentric left ventricular hypertrophy. Right Ventricle Mild right ventricular dilatation. Right ventricular systolic pressure within normal limits. Right Atrium Normal right atrial size. Left Atrium Normal left atrial size. No evidence for an atrial septal defect. Mitral Valve Structurally normal mitral valve. No mitral stenosis, regurgitation or prolapse. Aortic Valve Trileaflet aortic valve. No aortic valve stenosis or regurgitation. Tricuspid Valve Mild tricuspid regurgitation. Pulmonic Valve Mild pulmonic regurgitation. Pericardium Normal pericardium. No pericardial effusion. Aorta Normal size aortic root and proximal ascending aorta. CONCLUSIONS Hyperdynamic LV systolic function Previewed by: Dr. Kamron Mcclure MD (Electronically Signed) Final Date: 06 August 2022 13:09
[2022-08-08 12:12] VITALS: BP 152/89
--- NOTE | 2022-08-08 12:50 | P.PN ---
Subjective This is a pleasant 57-year-old male past medical history significant for hypertension, dyslipidemia. 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 We have been asked to see in consultation for new onset Atrial fibrillation RVR. Patient presents to the emergency department with complaints of generalized fatigue, nasal congestion, overall feeling "tired". He states his initial symptoms were worsening nasal congestion and runny nose, he thought it was his allergies, he then began to have generalized fatigue, tired. He went to urgent care to be evaluated. An EKG was performed which was abnormal and patient was sent to the emergency department. EKG and admission revealed atrial flutter with rapid ventricular response, heart rate 134. He was initially started on IV heparin and IV Cardizem drip. Patient denies any chest pain, palpitations, shortness of breath, lightheadedness, dizziness, syncope or near-syncope. He denies any prior history of CAD, NC, stroke, diabetes, Afib/flutter or any arrhythmia. Family history includes father had cardiac disease. He does endorse alcohol use. He denies illicit drug or tobacco use. 08/08/2022 Yesterday patient underwent successful SHAUN/Cardioversion with Dr. Albert SHAUN revealed intact left atrial appendage without any thrombus, Intact interatrial septum, Normal left ventricular dimension and systolic function ,Normal right ventricular dimension and systolic function, Normal intracardiac valves. No ev idence of pericardial effusion. Patient is seen and examined at bedside, no acute distress. No chest pain, shortness of breath or palpitations. He is maintaining sinus rhythm with heart rates in the 70s80s. He is on metoprolol titrate 50 mg twice a day and Eliquis 5 mg twice a day. Amlodipine 5 mg daily, lisinopril 20 mg daily PHYSICAL EXAMINATION Vitals reviewed CONSTITUTIONAL: No apparent distress. HEENT: Neck Supple. No JVD. CHEST EXAMINATION: Lungs are clear to auscultation. No chest wall tenderness is noted on palpation or with deep breathing. HEART EXAMINATION: Regular rate and rhythm. S1, S2 heard. No murmurs, gallops or rub. ABDOMEN: Soft, nontender. Positive bowel sounds. EXTREMITIES: 2+ peripheral pulses, no lower extremity edema and no calf tenderness. SKIN: warm, dry NEUROLOGIC EXAMINATION: Patient is awake, alert and oriented x3. ASSESSMENT Typical atrial flutter with RVR -[id number] score 1 History of hypertension Dyslipidemia PLAN Continue metoprolol tartrate 50mg BID Eliquis 5mg BID From a cardiology perspective, patient stable to be discharged home. Follow up outpatient with Dr. Albert Nurse practitioner note has been reviewed by physician. Signing provider agrees with the documented findings, assessment, and plan of care. Objective - Vital Signs Vital signs: Vital Signs Temp 97.8 F 08/08/22 03:00 Pulse 94 08/08/22 09:07 Resp 18 08/08/22 12:11 BP 152/89 08/08/22 12:11 Pulse Ox 98 08/08/22 12:11 FiO2 Intake & Output 08/07/22 08/08/22 08/08/22 18:59 06:59 18:59 Intake Total 454 118 Balance 454 118 Weight 96.162 kg Intake: IV 100 Oral 354 118 Other: Voiding Method Toilet Toilet Toilet # Voids 2 2 2 - Labs CBC & Chem 7: 08/07/22 09:57 08/06/22 07:38
--- NOTE | 2022-08-08 14:48 | P.DS ---
Providers Date of admission: 08/05/22 16:43 Expected date of discharge: 08/08/22 Attending physician: Mode Castillo MD Consults: 08/05/22 16:43 Consult Physician Routine Consulting Provider: Jason Gabriel Consult Reason/Comments: new onset afib Do you want consulting provider notified?: Yes [facility] care [facility] [place] [place] Hospital Course: Discharge Diagnosis: Atrial flutter with RVR Hypermagnesemia Alcohol dependence Hyponatremia Hypertension Dyslipidemia Nasal congestion Hospital Course: 57-year-old male with history of hypertension, dyslipidemia, alcohol dependence presented from his PCP office for tachycardia. Patient was found. Atrial flutter with RVR. He was initially on heparin drip and diltiazem drip. Cardiology was consulted. Patient had a SHAUN and successful cardioversion, he was in sinus rhythm at time of discharge. Patient will continue on metoprolol and eliquis per cardiology. Patient follow-up with Dr. Albert as an outpatient. Patient seen and examined at bedside. Vital signs reviewed and stable. General: nontoxic, no distress, appears at stated age Derm: warm, dry Head: atraumatic, normocephalic, symmetric Eyes: EOMI, no lid lag, anicteric sclera Mouth: no lip lesion, mucus membranes moist Cardiovascular: S1S2 reg, no murmur Lungs: CTA bilateral, no rhonchi, no rales , no accessory muscle use Abdominal: soft, nontender to palpation, no guarding, no appreciable organomegaly Ext: no gross muscle atrophy, no edema, no contractures Neuro: CN II-XI grossly intact, no focal neuro deficits Psych: Alert, oriented, appropriate affect A total of 38 minutes of time were spent preparing this complex discharge summary. Patient was discharged on 08/08/22 at 11:20. Patient Condition at Discharge: Serious Plan - Discharge Summary Discharge Rx Participant: Yes New Discharge Prescriptions: New Metoprolol Tartrate [Lopressor] 50 mg PO BID #120 tab Apixaban [Eliquis] 5 mg PO BID #60 tab Continue Multivitamins, Thera [Multivitamin (formulary)] 1 tab PO DAILY gemfibroziL [Lopid] 600 mg PO BID Cyclobenzaprine [Flexeril] 10 mg PO DAILY PRN PRN Reason: Spasms amLODIPine BESYLATE/BENAZEPRIL [amLODIPine BESYLATE/BENAZEPRIL 10-20 MG] 1 cap PO DAILY Naproxen [Naprosyn] 500 mg PO Q12HR PRN PRN Reason: Pain Omeprazole 20 mg PO DAILY PRN PRN Reason: TO TAKE W/NAPROXEN FOR PAIN Rosuvastatin [Crestor] 10 mg PO DAILY Furosemide [Lasix] 20 mg PO DAILY PRN PRN Reason: Edema icosapent ethyL [Icosapent Ethyl] 2 gm PO BID Fexofenadine/Pseudoephedrine [Sujata-D 24 Hour Tablet] 1 tab PO DAILY Discharge Medication List Cyclobenzaprine [Flexeril] 10 mg PO DAILY PRN 12/03/19 [History] Multivitamins, Thera [Multivitamin (formulary)] 1 tab PO DAILY 12/03/19 [History] Naproxen [Naprosyn] 500 mg PO Q12HR PRN 12/03/19 [History] Omeprazole 20 mg PO DAILY PRN 12/03/19 [History] Rosuvastatin [Crestor] 10 mg PO DAILY 12/03/19 [History] amLODIPine BESYLATE/BENAZEPRIL [amLODIPine BESYLATE/BENAZEPRIL 10-20 MG] 1 cap PO DAILY 12/03/19 [History] gemfibroziL [Lopid] 600 mg PO BID 12/03/19 [History] Fexofenadine/Pseudoephedrine [Sujata-D 24 Hour Tablet] 1 tab PO DAILY 08/05/22 [History] Furosemide [Lasix] 20 mg PO DAILY PRN 08/05/22 [History] icosapent ethyL [Icosapent Ethyl] 2 gm PO BID 08/05/22 [History] Apixaban [Eliquis] 5 mg PO BID #60 tab 08/07/22 [Rx] Metoprolol Tartrate [Lopressor] 50 mg PO BID #120 tab 08/08/22 [Rx] Follow up Appointment(s)/Referral(s): Errol Mcmullen MD [Primary Care Provider] - 1-2 days (Please call and make appointment ) Jose Albert MD [STAFF PHYSICIAN] - 1 Week (Cardiology's office will call you with an appointment date and time.) Patient Instructions/Handouts: Atrial Flutter (DC), Cardioversion (DC) Activity/Diet/Wound Care/Special Instructions: Please see your PCP as soon as possible. Please see Cardiology in 1-2 weeks. Discharge/Stand Alone Forms: AA Meetings [facility], Outpatient Counseling, In Substance Abuse Facilities, Personal Mechanical Maintenance
== END 2022-08-08 14:30 | disposition home or self-care (01) | DRG 309 ==
LOC: EC 15:26 → 3SCARD 16:43
PROVIDERS: ADMIT Internal Medicine; ATTEND Internal Medicine
PROC: B24BZZ4 Ultrasonography of Heart with Aorta, Transesophageal (ICD-10-PCS; 2022-08-07)
PROC: 5A2204Z Restoration of Cardiac Rhythm, Single (ICD-10-PCS; principal; 2022-08-07 08:20)
DX: I48.3 Typical atrial flutter (principal); E87.1 Hypo-osmolality and hyponatremia; E87.2 Acidosis; I48.91 Unspecified atrial fibrillation; E78.5 Hyperlipidemia, unspecified; R19.7 Diarrhea, unspecified; I10 Essential (primary) hypertension; K21.9 Gastro-esophageal reflux disease without esophagitis; E83.42 Hypomagnesemia; E86.1 Hypovolemia; F10.20 Alcohol dependence, uncomplicated; Z20.822 Contact with and (suspected) exposure to COVID-19; Z79.899 Other long term (current) drug therapy; Z79.01 Long term (current) use of anticoagulants; Z87.891 Personal history of nicotine dependence
CPT/HCPCS: 36415; 71046; 80048; 80053; 83735; 84443; 84484; 85025; 85610; 85730; 87636; 92960; 93005; 93306; 93312; 93320; 93325; 96361; 96365; 96366; 96368; 96375; 99291

== ENCOUNTER 2023-09-12 13:46 | Inpatient (IN) | payer BC ==
[2023-09-12] MEDS ORDERED: LORazepam 2 MG/ML INJ IV STA ×3 (14:06→17:00)
--- NOTE | 2023-09-12 14:12 | ED ---
Weakness HPI - General Chief complaint: Weakness Stated complaint: Weakness, AFib Time Seen by Provider: 09/12/23 13:48 Source: patient, EMS, RN notes reviewed, old records reviewed Mode of arrival: EMS Limitations: no limitations - History of Present Illness Initial comments: This is a 58-year-old male to the ER today for evaluation he. Patient did say for evaluation regards to altered mental status weakness in general not feeling well. Patient states she's been shaking significantly throughout the course of the day. Patient does admit to daily drinking, multiple recent hospital admissions. Patient states he last drank yesterday. She states his heart rate is severely elevated he does not feel well. MD Complaint: generalized weakness, lack of energy, difficulty walking -: days(s) Location: generalized Severity: severe Severity scale (1-10): 8 Consistency: constant Improves with: none Worsens with: none Context: recent illness, history of similar Associated Symptoms: chest pain, confusion, nausea/vomiting, shortness of breath - Related Data Home Medications Medication Instructions Recorded Confirmed Omeprazole 20 mg PO DAILY 12/03/19 09/12/23 Rosuvastatin [Crestor] 10 mg PO HS 12/03/19 09/12/23 gemfibroziL [Lopid] 600 mg PO BID 12/03/19 09/12/23 Flecainide [Tambocor] 50 mg PO Q12HR 09/12/23 09/12/23 Folic Acid 1 mg PO DAILY 09/12/23 09/12/23 Metoprolol Tartrate [Lopressor] 75 mg PO BID 09/12/23 09/12/23 Sertraline [Zoloft] 50 mg PO DAILY 09/12/23 09/12/23 Thiamine [Vitamin B-1] 100 mg PO DAILY 09/12/23 09/12/23 Previous Rx's Medication Instructions Recorded Apixaban [Eliquis] 5 mg PO BID #60 tab 08/07/22 Ibuprofen [Motrin] 600 mg PO QID PRN #20 tab 09/17/23 Sulfamethox-Tmp 800-160Mg [Bactrim 1 each PO BID #9 tab 09/17/23 DS 800-160 mg] Allergies Allergy/AdvReac Type Severity Reaction Status Date / Time No Known Allergies Allergy Verified 09/12/23 16:07 Review of Systems ROS Statement: Those systems with pertinent positive or pertinent negative responses have been documented in the HPI. ROS Other: All systems not noted in ROS Statement are negative. Past Medical History Past Medical History: Hyperlipidemia, Hypertension History of Any Multi-Drug Resistant Organisms: None Reported Additional Past Surgical History / Comment(s): rt bicep surgery Past Psychological History: No Psychological Hx Reported Smoking Status: Former smoker Past Alcohol Use History: Daily Past Drug Use History: None Reported - Past Family History Father History Unknown: Yes General Exam Limitations: no limitations General appearance: alert, in no apparent distress, anxious Head exam: Present: atraumatic, normocephalic, normal inspection Eye exam: Present: normal appearance, PERRL, EOMI. Absent: scleral icterus, conjunctival injection, periorbital swelling ENT exam: Present: normal exam, mucous membranes moist Neck exam: Present: normal inspection. Absent: tenderness, meningismus, lymphadenopathy Respiratory exam: Present: normal lung sounds bilaterally. Absent: respiratory distress, wheezes, rales, rhonchi, stridor Cardiovascular Exam: Present: normal rhythm, tachycardia, normal heart sounds. Absent: systolic murmur, diastolic murmur, rubs, gallop, clicks GI/Abdominal exam: Present: soft, normal bowel sounds. Absent: distended, tenderness, guarding, rebound, rigid Extremities exam: Present: normal inspection, full ROM, normal capillary refill. Absent: tenderness, pedal edema, joint swelling, calf tenderness Back exam: Present: normal inspection Neurological exam: Present: alert, oriented X3, CN II-XII intact Psychiatric exam: Present: normal affect, normal mood Skin exam: Present: warm, dry, intact, normal color. Absent: rash Course Vital Signs 09/12/23 09/12/23 09/12/23 13:49 14:00 15:30 Temperature 97.8 F Pulse Rate 121 H 126 H Respiratory 20 20 20 Rate Blood Pressure 182/98 182/98 154/80 O2 Sat by Pulse 100 99 98 Oximetry 09/12/23 17:12 Temperature Pulse Rate 110 H Respiratory 20 Rate Blood Pressure 154/91 O2 Sat by Pulse 97 Oximetry - Reevaluation(s) Reevaluation #1: 09/12/23 16:46 Medical record is reviewed Reevaluation #2: 09/12/23 16:46 Patient symptoms are unchanged here in the ER although improved with Ativan Reevaluation #3: 09/12/23 16:46 Patient informed results and questions answered Reevaluation #4: 09/12/23 16:46 Was pt. sent in by a medical professional or institution ([employer], AUTOMATIC TYPEWRITER INSPECTOR, urgent care, hospital, or prison...) When possible be specific @ -no Did you speak to anyone other than the patient for history (EMS, parent, family, police, friend...)? What history was obtained from this source @ -no Did you review nursing and triage notes (agree or disagree)? Why? @ -agree Are old charts reviewed (outside hosp., previous admission, EMS record, old EKG, old radiological studies, urgent care reports/EKG's, prison records)? Report findings @ -yes Differential Diagnosis (chest pain, altered mental status, abdominal pain women, abdominal pain men, vaginal bleeding, weakness, fever, dyspnea, syncope, headache, dizziness, GI bleed, back pain, seizure, CVA, palpatations, mental health, musculoskeletal)? @ -prior EKG interpreted by me (3pts min.). @ -yes X-rays interpreted by me (1pt min.). @ -yes CT interpreted by me (1pt min.). @ -yes U/S interpreted by me (1pt. min.). @ -no What testing was considered but not performed or refused? (CT, X-rays, U/S, labs)? Why? @ -none What meds were considered but not given or refused? Why? @ -none Did you discuss the management of the patient with other professionals (professionals i.e. [employer], AUTOMATIC TYPEWRITER INSPECTOR, lab, RT, psych nurse, forensic social worker, retail account specialist, teacher, duty officer, rn field case manager)? Give summary @ -no Was smoking cessation discussed for >3mins.? @ -no Was critical care preformed (if so, how long)? @ -yes31 Were there social determinants of health that impacted care today? How? (Homelessness, low income, unemployed, alcoholism, drug addiction, transportation, low edu. Level, literacy, decrease access to med. care, [place] [facility], rehab)? @ -none Was there de-escalation of care discussed even if they declined (Discuss DNR or withdrawal of care, Hospice)? DNR status @ -no What co-morbidities impacted this encounter? (DM, HTN, Smoking, COPD, CAD, Cancer, CVA, ARF, Chemo, Hep., AIDS, mental health diagnosis, sleep apnea, morbid obesity)? @ -none Was patient admitted / discharged? Hospital course, mention meds given and route, prescriptions, significant lab abnormalities, going to OR and other pertinent info. @ - 58 male to the emergency department for evaluation of weakness and not feeling well. Patient has significant shaking alcohol withdrawal alcohol ketoacidosis significant left eye drainage was. Patient be admitted for supportive care Admitted Undiagnosed new problem with uncertain prognosis? @ -no Drug Therapy requiring intensive monitoring for toxicity (Heparin, Nitro, Insulin, Cardizem)? @ -no Were any procedures done? @ -no Diagnosis/symptom? @ -Alcohol ketoacidosis with pending alcohol withdrawal Acute, or Chronic, or Acute on Chronic? @ -Acute Uncomplicated (without systemic symptoms) or Complicated (systemic symptoms)? @ -Complicated Side effects of treatment? @ -no Exacerbation, Progression, or Severe Exacerbation? @ -exacerbation Poses a threat to life or bodily function? How? (Chest pain, [place], [place], pneumonia, PE, COPD, DKA, ARF, appy, cholecystitis, CVA, Diverticulitis, Homicidal, Suicidal, threat to staff... and all critical care pts) @ -yes significant metabolic arrangement Reevaluation #5: 09/12/23 16:46 Differential Altered Mental Status: Hypoglycemia, DKA, hypercapnia, ETOH, overdose, CO poisoning, trauma, myxedema coma, HTN encephalopathy, infection, encephalitis, psychosis, intercranial hemorrhage, hepatic encephalopathy, meningitis, CVA, this is not meant to be an all-inclusive list - Consultations Consultation #1: spoke with sound who agrees to admit this patient EKG Findings - EKG Comments: EKG Findings:: EKG is A. fib with RVR 114 QRS 98 QTc 431 - EKG Results: EKG: interpreted by [facility] Medical Decision Making - Medical Decision Making 58 male to the emergency department for evaluation of weakness and not feeling well. Patient has significant shaking alcohol withdrawal alcohol ketoacidosis with significant lactic acidosis. Patient be admitted for supportive care - Lab Data Result diagrams: 09/16/23 07:17 09/16/23 07:17 Lab Results 09/12/23 09/12/23 09/12/23 Range/Units 14:04 14:04 14:04 WBC 5.9 (3.8-10.6) k/uL RBC 4.01 L (4.30-5.90) m/uL Hgb 12.0 L (13.0-17.5) gm/dL Hct 36.8 L (39.0-53.0) % MCV 91.7 (80.0-100.0) fL MCH 29.9 (25.0-35.0) pg MCHC 32.6 (31.0-37.0) g/dL RDW 17.8 H (11.5-15.5) % Plt Count 170 (150-450) k/uL MPV 8.7 Neutrophils % 79 % Lymphocytes % 12 % Monocytes % 7 % Eosinophils % 0 % Basophils % 0 % Neutrophils # 4.7 (1.3-7.7) k/uL Lymphocytes # 0.7 L (1.0-4.8) k/uL Monocytes # 0.4 (0-1.0) k/uL Eosinophils # 0.0 (0-0.7) k/uL Basophils # 0.0 (0-0.2) k/uL Hypochromasia Moderate Anisocytosis Slight PT 14.4 H (10.0-12.5) sec INR 1.4 H (<1.2) APTT 26.9 (22.0-30.0) sec Sodium 130 L (137-145) mmol/L Potassium 3.8 (3.5-5.1) mmol/L Chloride 95 L (98-107) mmol/L Carbon Dioxide 17 L (22-30) mmol/L Anion Gap 18 mmol/L BUN 7 L (9-20) mg/dL Creatinine 0.49 L (0.66-1.25) mg/dL Est GFR (CKD-EPI)AfAm >90 (>60 ml/min/1.73 sqM) Est GFR (CKD-EPI)NonAf >90 (>60 ml/min/1.73 sqM) Glucose 201 H (74-99) mg/dL Lactic Ac Sepsis Rflx Plasma Lactic Acid Kailash (0.7-2.0) mmol/L Calcium 8.3 L (8.4-10.2) mg/dL Phosphorus 5.1 H (2.5-4.5) mg/dL Magnesium 1.0 L (1.6-2.3) mg/dL Total Bilirubin 1.1 (0.2-1.3) mg/dL AST 80 H (17-59) U/L ALT 45 (4-49) U/L Alkaline Phosphatase 127 H (38-126) U/L Troponin I (0.000-0.034) ng/mL NT-Pro-B Natriuret Pep 1440 pg/mL Total Protein 7.0 (6.3-8.2) g/dL Albumin 4.2 (3.5-5.0) g/dL TSH 0.738 (0.465-4.680) mIU/L Influenza Type A (PCR) (Not Detectd) Influenza Type B (PCR) (Not Detectd) RSV (PCR) (Not Detectd) SARS-CoV-2 (PCR) (Not Detectd) 09/12/23 09/12/23 09/12/23 Range/Units 14:04 14:04 14:04 WBC (3.8-10.6) k/uL RBC (4.30-5.90) m/uL Hgb (13.0-17.5) gm/dL Hct (39.0-53.0) % MCV (80.0-100.0) fL MCH (25.0-35.0) pg MCHC (31.0-37.0) g/dL RDW (11.5-15.5) % Plt Count (150-450) k/uL MPV Neutrophils % % Lymphocytes % % Monocytes % % Eosinophils % % Basophils % % Neutrophils # (1.3-7.7) k/uL Lymphocytes # (1.0-4.8) k/uL Monocytes # (0-1.0) k/uL Eosinophils # (0-0.7) k/uL Basophils # (0-0.2) k/uL Hypochromasia Anisocytosis PT (10.0-12.5) sec INR (<1.2) APTT (22.0-30.0) sec Sodium (137-145) mmol/L Potassium (3.5-5.1) mmol/L Chloride (98-107) mmol/L Carbon Dioxide (22-30) mmol/L Anion Gap mmol/L BUN (9-20) mg/dL Creatinine (0.66-1.25) mg/dL Est GFR (CKD-EPI)AfAm (>60 ml/min/1.73 sqM) Est GFR (CKD-EPI)NonAf (>60 ml/min/1.73 sqM) Glucose (74-99) mg/dL Lactic Ac Sepsis Rflx Plasma Lactic Acid Kailash 6.3 H* (0.7-2.0) mmol/L Calcium (8.4-10.2) mg/dL Phosphorus (2.5-4.5) mg/dL Magnesium (1.6-2.3) mg/dL Total Bilirubin (0.2-1.3) mg/dL AST (17-59) U/L ALT (4-49) U/L Alkaline Phosphatase (38-126) U/L Troponin I <0.012 (0.000-0.034) ng/mL NT-Pro-B Natriuret Pep pg/mL Total Protein (6.3-8.2) g/dL Albumin (3.5-5.0) g/dL TSH (0.465-4.680) mIU/L Influenza Type A (PCR) Not Detected (Not Detectd) Influenza Type B (PCR) Not Detected (Not Detectd) RSV (PCR) Not Detected (Not Detectd) SARS-CoV-2 (PCR) Not Detected (Not Detectd) 09/12/23 Range/Units 14:24 WBC (3.8-10.6) k/uL RBC (4.30-5.90) m/uL Hgb (13.0-17.5) gm/dL Hct (39.0-53.0) % MCV (80.0-100.0) fL MCH (25.0-35.0) pg MCHC (31.0-37.0) g/dL RDW (11.5-15.5) % Plt Count (150-450) k/uL MPV Neutrophils % % Lymphocytes % % Monocytes % % Eosinophils % % Basophils % % Neutrophils # (1.3-7.7) k/uL Lymphocytes # (1.0-4.8) k/uL Monocytes # (0-1.0) k/uL Eosinophils # (0-0.7) k/uL Basophils # (0-0.2) k/uL Hypochromasia Anisocytosis PT (10.0-12.5) sec INR (<1.2) APTT (22.0-30.0) sec Sodium (137-145) mmol/L Potassium (3.5-5.1) mmol/L Chloride (98-107) mmol/L Carbon Dioxide (22-30) mmol/L Anion Gap mmol/L BUN (9-20) mg/dL Creatinine (0.66-1.25) mg/dL Est GFR (CKD-EPI)AfAm (>60 ml/min/1.73 sqM) Est GFR (CKD-EPI)NonAf (>60 ml/min/1.73 sqM) Glucose (74-99) mg/dL Lactic Ac Sepsis Rflx Y Plasma Lactic Acid Kailash (0.7-2.0) mmol/L Calcium (8.4-10.2) mg/dL Phosphorus (2.5-4.5) mg/dL Magnesium (1.6-2.3) mg/dL Total Bilirubin (0.2-1.3) mg/dL AST (17-59) U/L ALT (4-49) U/L Alkaline Phosphatase (38-126) U/L Troponin I (0.000-0.034) ng/mL NT-Pro-B Natriuret Pep pg/mL Total Protein (6.3-8.2) g/dL Albumin (3.5-5.0) g/dL TSH (0.465-4.680) mIU/L Influenza Type A (PCR) (Not Detectd) Influenza Type B (PCR) (Not Detectd) RSV (PCR) (Not Detectd) SARS-CoV-2 (PCR) (Not Detectd) - EKG Data -: EKG Interpreted by Me - Radiology Data Radiology results: report reviewed (Chest x-ray and CT brain are negative for acute disease), image reviewed Critical Care Time Critical Care Time: Yes Total Critical Care Time: 31 Disposition Clinical Impression: Hyponatremia, Dehydration, Hypokalemia, Hypomagnesemia, Atrial fibrillation with RVR, Delirium tremens, Alcoholic ketoacidosis Disposition: ADMITTED IP TO THIS [facility] Condition: Serious Is patient prescribed a controlled substance at d/c from ED?: No Time of Disposition: 15:40
[2023-09-12 14:13] LABS: Anisocytosis Slight; Basophils % (A) 0 %; Eosinophils % (A) 0 %; HCT 36.8 % (39.0-53.0); Hypochromasia Moderate; Lymphocytes # (A) 0.7 k/uL (1.0-4.8); Lymphocytes % (A) 12 %; MCH 29.9 pg (25.0-35.0); MCHC 32.6 g/dL (31.0-37.0); MCV 91.7 fL (80.0-100.0); Mean Platelet Volume 8.7; Monocytes # (A) 0.4 k/uL (0-1.0); Monocytes % (A) 7 %; Neutrophils # (A) 4.7 k/uL (1.3-7.7); Neutrophils % (A) 79 %; Platelet Count 170 k/uL (150-450); RBC 4.01 m/uL (4.30-5.90); RDW 17.8 % (11.5-15.5); WBC 5.9 k/uL (3.8-10.6)
[2023-09-12 14:24] LABS: ALT 45 U/L (4-49); AST 80 U/L (17-59); African American GFR (CKD) >90 (>60 ml/min/1.73 sqM); Albumin 4.2 g/dL (3.5-5.0); Alkaline Phosphatase 127 U/L (38-126); Anion Gap 18 mmol/L; Blood Urea Nitrogen 7 mg/dL (9-20); Calcium 8.3 mg/dL (8.4-10.2); Carbon Dioxide 17 mmol/L (22-30); Chloride 95 mmol/L (98-107); Glucose 201 mg/dL (74-99); INR 1.4 (<1.2); Non-African American GFR(CKD) >90 (>60 ml/min/1.73 sqM); Partial Thromboplastin Time 26.9 sec (22.0-30.0); Phosphorus 5.1 mg/dL (2.5-4.5); Potassium 3.8 mmol/L (3.5-5.1); Prothrombin Time 14.4 sec (10.0-12.5); Sodium 130 mmol/L (137-145); Total Bilirubin 1.1 mg/dL (0.2-1.3)
[2023-09-12] MEDS ORDERED: SODIUM CHLORIDE 0.9% 1,000 ML IV STA (14:25)
[2023-09-12] MEDS ORDERED: DILTIAZEM DRIP BOLUS FROM BAG 1 MG SOLN IV ONE (14:25)
[2023-09-12] MEDS ORDERED: MAGNESIUM OXIDE 400 MG TAB PO STA ×2 (14:26)
--- NOTE | 2023-09-12 14:27 | XR ---
EXAMINATION TYPE: XR chest 2V DATE OF EXAM: 09/12/2023 COMPARISON: 08/05/2022 TECHNIQUE: PA and lateral views submitted. HISTORY: Shortness of breath FINDINGS: The lungs are clear and there is no pneumothorax, pleural effusion, or focal pneumonia. Heart size normal and no overt failure. Osseous structures demonstrate hypertrophic and degenerative changes of the spine. Atherosclerotic change aorta. IMPRESSION: 1. No acute process. Mild thickening of the right paratracheal stripe. This could be evaluated with s hort-term follow-up CT of the chest.
[2023-09-12] MEDS ORDERED: SODIUM CHLORIDE 0.9% 1,000 ML IV SCH (14:30)
[2023-09-12 14:32] LABS: NT-Pro-B-Type Natriuretic Pept 1440 pg/mL
--- NOTE | 2023-09-12 14:38 | CT ---
EXAMINATION TYPE: CT brain wo con DATE OF EXAM: 09/12/2023 COMPARISON: none HISTORY: weakness, headache x1 day CT DLP: 1108.[address] of the brain was performed. The ventricles, basal cisterns and sulci overlying the cerebral convexities demonstrate mild enlargem ent. There is no evidence for intracranial hemorrhage or sulcal effacement. There is decreased attenuation about the periventricular white matter and deep white matter of both c erebral hemispheres, compatible with chronic small vessel ischemia. Differential diagnosis does inclu de demyelination. No mass effects are seen.No midline shift. Osseous calvarium is intact. If symptoms persist consider MRI. IMPRESSION: 1. Age related atrophic and chronic small vessel ischemic change without acute intracranial process s een at this time.
[2023-09-12] MEDS: MAGNESIUM SULFATE-D5W PMX 1 GM in DEXTROSE/WATER 1 100ML.BAG IVPB SCH ×2 (14:43→16:17)
[2023-09-12] MEDS: MAGNESIUM OXIDE 400 MG TAB PO SCH (14:46)
[2023-09-12] MEDS: DILTIAZEM 125 MG in SODIUM CHLORIDE 0.9% 100 ML IV SCH (14:53)
[2023-09-12] MEDS ORDERED: THIAMINE 100 MG/ML 2 ML VIAL IM STA (15:22)
[2023-09-12] MEDS ORDERED: NALOXONE 0.4 MG/ML 1 ML VIAL IV PRN (15:22)
[2023-09-12] MEDS ORDERED: LORazepam 2 MG/ML INJ IV PRN (15:30)
[2023-09-12] MEDS ORDERED: ONDANSETRON 4 MG/2 ML VIAL IVP PRN (15:30)
[2023-09-12] MEDS: SODIUM CHLORIDE 0.9% 1,000 ML IV SCH (16:02)
[2023-09-12] MEDS: DEXTROSE 5%-0.45% NACL 1,000 ML IV SCH (16:18)
[2023-09-12] MEDS: LORazepam 2 MG/ML INJ IV PRN ×5 (16:21→23:34)
--- NOTE | 2023-09-12 17:11 | P.HPIM ---
History of Present Illness H&P Date: 09/12/23 History of Presenting Illness: Patient is a 58-year-old male with a past medical history of chronic atrial fibrillation on anticoagulation with Eliquis, hypertension, hyperlipidemia, nicotine dependence, and alcoholism with daily alcohol use and alcohol cir rhosis. Patient reports drinking approximately 1 pint of liquor and 12 beers daily. Patient reports last drink being last night. Patient currently presenting to the emergency department for evaluation secondary to alcohol withdrawal and severe DTs. Patient reports he is experiencing uncontrolled tremors, headache, diaphoresis, palpitations, chest pain, dizziness, nausea, and vomiting. Patient reports these symptoms are similar to previous withdraws and reports multiple hospitalizations including previous ICU stays for alcohol withdrawal. Patient states his hid all of the alcohol in the house from him and that is why he is in withdrawal. Patient denies recent illnesses or exposure to known ill contacts. He does report falling yesterday while intoxicated and hitting his head. Patient does have contusion/abrasion to left side of forehead. Patient denies sustaining any other injuries. He currently denies having any changes in vision, hearing, shortness of breath, cough or c ongestion, abdominal pain, changes in her difficulties with urination or bowel function, or experiencing any numbness/tingling/focal weakness in his extremities. Patient underwent full evaluation in the emergency department. CT head was completed showing age related atrophic and chronic small vessel ischemic changes negative for acute intercranial process. EKG completed showing atrial fibrillation with RVR at 114 bpm. Chest x-ray completed negative for acute cardiopulmonary process showing mild thickening of right paratracheal stripe, recommending follow-up CT chest. Labs completed and reviewed. CBC showing normocytic anemia with hemoglobin of 12.0. Coagulation profile showing elevated INR 1.4 and PT of 14.4. BMP showing hyponatremia sodium of 130, hypochloremia with chloride of 75, bicarb 17, an elevated anion gap of 18. Renal function normal findings. Glucose slightly elevated at 201. Lactic acid 6.3. Magnesium 1.0. Liver profile showing elevated AST of 80 with alkaline phosphatase of 127. Troponin less than 0.012 proBNP 1440. TSH 0.738. Fluids A, influenza B, RSV, and Covid PCR all negative. Review of systems: Pertinent positives and negatives as discussed in HPI, a complete review of systems was performed and all other systems are negative. Physical exam: Vital signs reviewed and stable. General: Nontoxic, patient appears in mild distress as he is diaphoretic, tachycardic with significant tremors. Derm: normal coloration for ethnicity. Diaphoretic Head: normocephalic and symmetric with contusion/abrasion to left side of forehead. Eyes: EOMs intact, no lid lag, and anicteric sclera Mouth: no lip lesions, mucus membranes moist Cardiovascular: , irregularly irregular and tachycardic, no murmur noted, positive posterior tibial pulses bilaterally, and cap refill < 2 seconds. Lungs: Respirations even, regular, and unlabored on room air. Lungs CTA bilaterally, no rhonchi, no rales, no wheezing, and no accessory muscle usage. Abdominal: soft, nontender to palpation, no guarding, no appreciable organomegaly Ext: ROM intact. No gross muscle atrophy, no edema, no contractures. Patient with significant resting tremors Neuro: Speech clear, face symmetrical and CN II-XII grossly intact with no noted focal neuro deficits Psych: Alert and oriented to person, place, time, and situation. patient appears anxious reporting unable to get comfortable and fidgety throughout examination. Assessment and Plan of Care: Acute Alcohol withdrawal with DTs Alcohol ketoacidosis Atrial fibrillation with RVR, RVR likely secondary to acute alcohol withdrawal Hypomagnesemia, anterior to daily alcohol abuse Hyponatremia, secondary to daily alcohol abuse Elevated liver enzymes, secondary to daily alcohol abuse and underlying alcohol cirrhosis Elevated PT/INR secondary to alcohol cirrhosis -Order placed for monitoring of CIWA scores and patient to be medicated with Ativan 0.5 mg every 4 hours as needed for CIWA score of 4-5, Ativan 1 mg every 4 hours for CIWA score of 6-7, Ativan 2 mg every 3 hours CIWA score of 8-9, and Ativan 2 mg every 2 hours forr CIWA score of 10 or greater. -In addition to CIWA protocol with symptom triggered medication management patient also placed on scheduled Librium 25 mg 3 times daily. -Continuous IV hydration. -Thiamine 100 mg twice a day -Multivitamin daily -Folate 1 mg daily -Seizure, fall, aspiration, and elopement precautions in place. -Urine drug screen ordered -Continued close monitoring of electrolytes and replace as needed. -Telemetry monitoring. -Cardiology consulted for A. fib RVR -Patient was initially placed on Cardizem infusion in the emergency department. Orders place for patient to resume daily Eliquis 5 mg twice daily, atorvastatin 20 mg daily, fenofibrate 160 mg daily, metoprolol 75 mg twice daily, and flecainide 50 mg every 12 hours. -CT chest to be completed to follow-up on radiology reports of thickening of right paratracheal stripe -Elevated lactate is believed to be secondary to alcohol ketoacidosis, patient received 1 L 0.9% normal saline bolus in the emergency department and is currently on 0.9% normal saline at 130 mL's per hour. We will follow up until resolved. The patient is admitted with an anticipated greater than 2 midnight stay for evaluation of acute alcohol withdrawal with DTs CODE STATUS: Full code DVT prophylaxis: Eliquis Discussed with: Patient, ED physician, and RN Anticipated discharge date: clinical course to determine Anticipated discharge place: home versus inpatient drug and alcohol rehabilitati on facility Patient was seen independently by Nurse Practitioner. This document was prepared using [employer] dictation software. Please allow for errors in eligibility and occupancy interviewer while rare they do occur. I reviewed the documentation as provided by the JUAN above, who is the original author of this note. I agree with the documented assessment and plan, with the following changes: none Past Medical History Past Medical History: Hyperlipidemia, Hypertension History of Any Multi-Drug Resistant Organisms: None Reported Additional Past Surgical History / Comment(s): rt bicep surgery Past Psychological History: No Psychological Hx Reported Smoking Status: Former smoker Past Alcohol Use History: Daily Past Drug Use History: None Reported - Past Family History Father History Unknown: Yes Medications and Allergies Home Medications Medication Instructions Recorded Confirmed Type Cyclobenzaprine [Flexeril] 10 mg PO DAILY PRN 12/03/19 09/12/23 History Omeprazole 20 mg PO DAILY 12/03/19 09/12/23 History Rosuvastatin [Crestor] 10 mg PO HS 12/03/19 09/12/23 History gemfibroziL [Lopid] 600 mg PO BID 12/03/19 09/12/23 History Apixaban [Eliquis] 5 mg PO BID #60 tab 08/07/22 09/12/23 Rx Flecainide [Tambocor] 50 mg PO Q12HR 09/12/23 09/12/23 History Folic Acid 1 mg PO DAILY 09/12/23 09/12/23 History Furosemide [Lasix] 20 mg PO DAILY 09/12/23 09/12/23 History Metoprolol Tartrate [Lopressor] 75 mg PO BID 09/12/23 09/12/23 History Sertraline [Zoloft] 50 mg PO DAILY 09/12/23 09/12/23 History Thiamine [Vitamin B-1] 100 mg PO DAILY 09/12/23 09/12/23 History Allergies Allergy/AdvReac Type Severity Reaction Status Date / Time No Known Allergies Allergy Verified 09/12/23 16:07 Physical Exam Osteopathic Statement: *. No significant issues noted on an osteopathic structural exam other than those noted in the History and Physical/Consult. Vitals: Vital Signs Temp Pulse Resp BP Pulse Ox 09/12/23 15:30 126 H 20 154/80 98 09/12/23 14:00 20 182/98 99 09/12/23 13:49 97.8 F 121 H 20 182/98 100 Intake and Output 09/12/23 09/12/23 09/12/23 06:59 14:59 22:59 Other: Weight 104.326 kg Results CBC & Chem 7: 09/15/23 07:00 09/15/23 07:00 Labs: Abnormal Lab Results - Last 24 Hours (Table) 09/12/23 09/12/23 09/12/23 Range/Units 14:04 14:04 14:04 RBC 4.01 L (4.30-5.90) m/uL Hgb 12.0 L (13.0-17.5) gm/dL Hct 36.8 L (39.0-53.0) % RDW 17.8 H (11.5-15.5) % Lymphocytes # 0.7 L (1.0-4.8) k/uL PT 14.4 H (10.0-12.5) sec INR 1.4 H (<1.2) Sodium 130 L (137-145) mmol/L Chloride 95 L (98-107) mmol/L Carbon Dioxide 17 L (22-30) mmol/L BUN 7 L (9-20) mg/dL Creatinine 0.49 L (0.66-1.25) mg/dL Glucose 201 H (74-99) mg/dL Plasma Lactic Acid Kailash (0.7-2.0) mmol/L Calcium 8.3 L (8.4-10.2) mg/dL Phosphorus 5.1 H (2.5-4.5) mg/dL Magnesium 1.0 L (1.6-2.3) mg/dL AST 80 H (17-59) U/L Alkaline Phosphatase 127 H (38-126) U/L 09/12/23 Range/Units 14:04 RBC (4.30-5.90) m/uL Hgb (13.0-17.5) gm/dL Hct (39.0-53.0) % RDW (11.5-15.5) % Lymphocytes # (1.0-4.8) k/uL PT (10.0-12.5) sec INR (<1.2) Sodium (137-145) mmol/L Chloride (98-107) mmol/L Carbon Dioxide (22-30) mmol/L BUN (9-20) mg/dL Creatinine (0.66-1.25) mg/dL Glucose (74-99) mg/dL Plasma Lactic Acid Kailash 6.3 H* (0.7-2.0) mmol/L Calcium (8.4-10.2) mg/dL Phosphorus (2.5-4.5) mg/dL Magnesium (1.6-2.3) mg/dL AST (17-59) U/L Alkaline Phosphatase (38-126) U/L
[2023-09-12] MEDS ORDERED: DEXTROSE 50% SYRINGE 50 ML IVP PRN ×2 (18:27)
[2023-09-12] MEDS ORDERED: RX INFO: IV CONTRAST WAS GIVEN 1 EACH MISC MISCELLANE PRN (18:37)
[2023-09-12] MEDS ORDERED: SODIUM CHLORIDE 0.9% 1,000 ML IV ONE (18:56)
[2023-09-12] MEDS: METOPROLOL TARTRATE 25 MG TAB PO SCH (19:49)
[2023-09-12] MEDS: ATORVASTATIN 20 MG TAB PO SCH (19:49)
[2023-09-12] MEDS: FLECAINIDE 50 MG TAB PO SCH (19:49)
[2023-09-12] MEDS: APIXABAN 5 MG TAB PO SCH (19:49)
[2023-09-12] MEDS: chlordiazePOXIDE 25 MG CAP PO SCH (19:49)
[2023-09-12 20:10] LABS: Glucose,Whole Blood 129 mg/dL (70-110)
[2023-09-12] MEDS: INSULIN ASPART (NovoLOG) 100 UNIT/ML VIAL SQ SCH (20:37)
[2023-09-12] MEDS ORDERED: chlordiazePOXIDE 25 MG CAP PO SCH (22:00)
[2023-09-13] MEDS: MORPHINE SULFATE 4 MG/ML SYRINGE IV PRN ×6 (00:16→21:17)
[2023-09-13] MEDS: SODIUM CHLORIDE 0.9% 1,000 ML IV SCH ×4 (00:22→14:58)
[2023-09-13] MEDS: DEXTROSE 5%-0.45% NACL 1,000 ML IV SCH ×2 (01:48→12:23)
[2023-09-13] MEDS: LORazepam 2 MG/ML INJ IV PRN ×8 (01:48→23:05)
[2023-09-13 04:27] LABS: Amphetamine Screen,Urine Not Detected (NotDetected); Barbiturate Screen,Urine Not Detected (NotDetected); Benzodiazepines Screen,Urine Detected (NotDetected); Cocaine Screen,Urine Not Detected (NotDetected); Methadone Screen, Urine Not Detected (NotDetected); Opiate Screen,Urine Detected (NotDetected); Oxycodone Screen, Urine Not Detected (NotDetected); Phencyclidine Screen,Urine Not Detected (NotDetected); Tricyclic Antidepressant,Urine Detected (NotDetected); Urn Cannabinoid Scrn Not Detected (NotDetected)
[2023-09-13 05:52] LABS: Anisocytosis Slight; Basophils % (A) 0 %; Eosinophils % (A) 1 %; HCT 32.8 % (39.0-53.0); HGB 10.7 gm/dL (13.0-17.5); Hypochromasia Slight; Lymphocytes # (A) 1.8 k/uL (1.0-4.8); Lymphocytes % (A) 23 %; MCH 29.8 pg (25.0-35.0); MCHC 32.5 g/dL (31.0-37.0); MCV 91.7 fL (80.0-100.0); Mean Platelet Volume 8.8; Monocytes # (A) 0.6 k/uL (0-1.0); Monocytes % (A) 7 %; Neutrophils # (A) 5.1 k/uL (1.3-7.7); Neutrophils % (A) 67 %; Platelet Count 139 k/uL (150-450); RBC 3.58 m/uL (4.30-5.90); RDW 18.2 % (11.5-15.5); WBC 7.6 k/uL (3.8-10.6)
[2023-09-13 05:55] LABS: ALT 41 U/L (4-49); AST 72 U/L (17-59); African American GFR (CKD) >90 (>60 ml/min/1.73 sqM); Albumin 3.7 g/dL (3.5-5.0); Alkaline Phosphatase 114 U/L (38-126); Anion Gap 11 mmol/L; Blood Urea Nitrogen 4 mg/dL (9-20); Calcium 7.9 mg/dL (8.4-10.2); Carbon Dioxide 21 mmol/L (22-30); Chloride 93 mmol/L (98-107); Glucose 140 mg/dL (74-99); Magnesium 1.7 mg/dL (1.6-2.3); Non-African American GFR(CKD) >90 (>60 ml/min/1.73 sqM); Phosphorus 3.1 mg/dL (2.5-4.5); Potassium 3.4 mmol/L (3.5-5.1); Sodium 125 mmol/L (137-145); Total Bilirubin 1.1 mg/dL (0.2-1.3); Total Protein 6.4 g/dL (6.3-8.2)
[2023-09-13 06:09] LABS: Glucose,Whole Blood 161 mg/dL (70-110)
[2023-09-13] MEDS: INSULIN ASPART (NovoLOG) 100 UNIT/ML VIAL SQ SCH ×4 (06:33→20:40)
[2023-09-13] MEDS: MAGNESIUM OXIDE 400 MG TAB PO SCH (08:23)
[2023-09-13] MEDS: FOLIC ACID 1 MG TAB PO SCH (08:23)
[2023-09-13] MEDS: FENOFIBRATE 160 MG TAB PO SCH (08:23)
[2023-09-13] MEDS: APIXABAN 5 MG TAB PO SCH ×2 (08:23→20:45)
[2023-09-13] MEDS: SERTRALINE 50 MG TAB PO SCH (08:23)
[2023-09-13] MEDS: MULTIVITAMINS, THERA 1 EACH TAB PO SCH (08:23)
[2023-09-13] MEDS: FLECAINIDE 50 MG TAB PO SCH ×2 (08:23→20:45)
[2023-09-13] MEDS: THIAMINE 100 MG TAB PO SCH (08:23)
[2023-09-13] MEDS: METOPROLOL TARTRATE 25 MG TAB PO SCH ×2 (08:24→20:44)
[2023-09-13] MEDS: chlordiazePOXIDE 25 MG CAP PO SCH ×3 (08:24→20:45)
[2023-09-13] MEDS ORDERED: POTASSIUM CHLORIDE ER 20 MEQ TAB.ER PO STA (08:44)
[2023-09-13] MEDS: MAGNESIUM SULFATE-D5W PMX 1 GM in DEXTROSE/WATER 1 100ML.BAG IVPB SCH ×2 (08:57→10:13)
[2023-09-13] MEDS: DILTIAZEM 125 MG in SODIUM CHLORIDE 0.9% 100 ML IV SCH (10:12)
--- NOTE | 2023-09-13 10:57 | CT ---
EXAMINATION TYPE: CT chest w con CT DLP: 489.6 mGycm, Automated exposure control for dose reduction was used. DATE OF EXAM: 09/13/2023 1:17 AM COMPARISON: Chest x-ray 09/12/2023 CLINICAL INDICATION:Male, 58 years old with history of follow up thickening of right paratracheal str ipe; PHH, follow up thickening of right paratracheal stripe TECHNIQUE: Multiple axial images were obtained through the chest. Sagittal and coronal reformats were created for review. Contrast used:80 mL of Isovue 370 with IV Contrast (None if empty) Oral contrast used: (None if empty) FINDINGS: LUNGS/ PLEURA: Azygous lobe present on the right, anatomic variant; this may account for the radiogra phic appearance of thickened paratracheal stripe. Lungs are otherwise clear. No pleural effusion or p neumothorax. AIRWAY: Patent and unremarkable. HEART: Size upper limits of normal. Scattered coronary arterial calcifications. No pericardial effusi on. MEDIASTINUM: No gross evidence of adenopathy. VASCULATURE: Mild atherosclerotic calcifications of the aorta. No aneurysm or dissection flap identi fied. Grossly normal enhancement of the pulmonary arteries in the limits of the exam. MUSCULOSKELETAL: Mild degenerative changes of the spine. No evidence of an acute bony abnormality. SOFT TISSUES/LYMPH NODES: Mild bilateral gynecomastia. No enlarged axillary nodes. LOWER NECK: Visualized right thyroid lobe and isthmus appear within normal limits. Left lobe is not s een, correlate for possible surgical absence. UPPER ABDOMEN: Mild diffuse hepatic steatosis. Mild right more than left perinephric stranding. Small nodule inferior to the spleen, likely splenule. IMPRESSION: 1. No acute chest process. 2. Mild perinephric stranding, nonspecific may be chronic. If concern for infectious process, correl ation could be made with urinalysis. 3. Other chronic and likely incidental findings, as described above.
[2023-09-13 11:23] LABS: Glucose,Whole Blood 164 mg/dL (70-110)
--- NOTE | 2023-09-13 15:18 | P.PN ---
Subjective Progress Note Date: 09/13/23 Hospital Course: Patient is a 58-year-old male with a past medical history of chronic atrial fibrillation on anticoagulation with Eliquis, hypertension, hyperlipidemia, nicotine dependence, and alcoholism with daily alcohol use and alcohol cirrhosis. Patient reports drinking approximately 1 pint of liquor and 12 beers daily. Patient reports last drink being last night. Patient currently presenting to the emergency department for evaluation secondary to alcohol withdrawal and severe DTs. Patient reports he is experiencing uncontrolled tremors, headache, diaphoresis, palpitations, chest pain, dizziness, nausea, and vomiting. Patient reports these symptoms are similar to previous withdraws and reports multiple hospitalizations including previous ICU stays for alcohol withdrawal. Patient states his hid all of the alcohol in the house from him and that is why he is in withdrawal. Patient denies recent illnesses or exposure to known ill contacts. He does report falling yesterday while intoxicated and hitting his head. Patient does have contusion/abrasion to left side of forehead. Patient denies sustaining any other injuries. He currently denies having any changes in vision, hearing, shortness of breath, cough or congestion, abdominal pain, changes in her difficulties with urination or bowel function, or experiencing any numbness/tingling/focal weakness in his extremities. Patient underwent full evaluation in the emergency department. CT head was completed showing age related atrophic and chronic small vessel ischemic changes negative for acute intercranial process. EKG completed showing atrial fibrillation with RVR at 114 bpm. Chest x-ray completed negative for acute cardiopulmonary process showing mild thickening of right paratracheal stripe, recommending follow-up CT chest. Labs completed and reviewed. CBC showing normocytic anemia with hemoglobin of 12.0. Coagulation profile showing elevated INR 1.4 and PT of 14.4. BMP showing hyponatremia sodium of 130, hypochloremia with chloride of 75, bicarb 17, an elevated anion gap of 18. Renal function normal findings. Glucose slightly elevated at 201. Lactic acid 6.3. Magnesium 1.0. Liver profile showing elevated AST of 80 with alkaline phosphatase of 127. Troponin less than 0.012 proBNP 1440. TSH 0.738. Fluids A, influenza B, RSV, and Covid PCR all negative. Physical exam: Vital signs reviewed and stable. General: Nontoxic, patient appears more comfortable this morning. He was no longer diaphoretic and only exhibiting mild tremors upon assessment this morning. Derm: normal coloration for ethnicity. Head: normocephalic and symmetric with contusion/abrasion to left side of forehead. Eyes: EOMs intact, no lid lag, and anicteric sclera Mouth: no lip lesions, mucus membranes moist Cardiovascular: , irregularly irregular and tachycardic, no murmur noted, positive posterior tibial pulses bilaterally, and cap refill < 2 seconds. Lungs: Respirations even, regular, and unlabored on room air. Lungs CTA bilaterally, no rhonchi, no rales, no wheezing, and no accessory muscle usage. Abdominal: soft, nontender to palpation, no guarding, no appreciable organomegaly Ext: ROM intact. No gross muscle atrophy, no edema, no contractures. Patient with significant resting tremors Neuro: Speech clear, face symmetrical and CN II-XII grossly intact with no noted focal neuro deficits Psych: Alert and oriented to person, place, time, and situation. patient appears anxious reporting unable to get comfortable and fidgety throughout examination. Assessment and Plan of Care: Acute Alcohol withdrawal with DTs Alcoholic ketoacidosis Elevated Anion gap metabolic acidosis without significant hyperglycemia secondary to alcoholic ketoacidosis Hypomagnesemia, secondary to daily alcohol abuse Hyponatremia, secondary to daily alcohol abuse Elevated liver enzymes, secondary to daily alcohol abuse and underlying alcohol cirrhosis Elevated PT/INR secondary to alcohol cirrhosis -Order placed for monitoring of CIWA scores and patient to be medicated with Ativan 0.5 mg every 4 hours as needed for CIWA score of 4-5, Ativan 1 mg every 4 hours for CIWA score of 6-7, Ativan 2 mg every 3 hours CIWA score of 8-9, and Ativan 2 mg every 2 hours forr CIWA score of 10 or greater. -Over the past 24 hours, patient has received a total of 15 mg of Ativan along with 5 mg of Valium IVP 1 dose and scheduled Librium 50 mg by mouth every 8 hours -Continue scheduled Librium 50 mg 3 times daily. -Continuous IV hydration with 0.9% normal saline at 75 mL's per hour -Thiamine 100 mg twice a day -Multivitamin daily -Folate 1 mg daily -Seizure, fall, aspiration, and elopement precautions in place. -Urine drug screen was positive for opiates, tricyclic antidepressants, and benzodiazepines. -Continued close monitoring of electrolytes and replace as needed. -Lactate trending downward with fluid hydration, we are continuing with aggressive IV fluid hydration and no further need for repeat lactate levels. Atrial fibrillation with RVR, patient with chronic atrial fibrillation however RVR is likely secondary to acute alcohol withdrawal -Telemetry monitoring. -Cardiology consulted for A. fib RVR -Patient remains in atrial fibrillation however currently controlled ventricular rate 90s to 110s. -Patient to continue Eliquis 5 mg twice daily, atorvastatin 20 mg daily, fenofibrate 160 mg daily, metoprolol 75 mg twice daily, and flecainide 50 mg every 12 hours. Abnormal imaging findings -X-ray chest reporting concerns of thickening of right paratracheal stripe -CT chest was ordered to follow-up on radiology reports of thickening of right paratracheal stripe -CT chest revealing any psychosis lobe present on the right which likely accounts for the radiographic appearance of thickened paratracheal stripe lungs otherwise clear and CT was negative showing no acute process of the chest. CODE STATUS: Full code DVT prophylaxis: Eliquis Discussed with: Patient and RN Anticipated discharge date: clinical course to determine Anticipated discharge place: home versus inpatient drug [facility] alcohol [facility]habil[facility] Patient was seen independently by Nurse Practitioner. This document was prepared using [employer] dictation software. Please allow for errors in house officer while rare they do occur. Derek Gupta NP rendered care for this patient independently, reviewed the findings and plan as documented in the note above. I did not physically speak with or examine the patient on this date. Objective - Vital Signs Vital signs: Vital Signs Temp 97.8 F 09/13/23 08:12 Pulse 104 H 09/13/23 08:12 Resp 28 H 09/13/23 08:12 BP 133/79 09/13/23 08:12 Pulse Ox 97 09/13/23 08:12 FiO2 Intake & Output 09/12/23 09/13/23 09/13/23 18:59 06:59 18:59 Intake Total 1115 Balance 1115 Weight 104.326 kg Intake: Intake, IV Titration 575 Amount Dextrose 5%-0.45% NaCl 1, 550 000 ml @ 110 mls/hr IV . Q9H6M JUSTINE Rx#:[id number] Diltiazem 125 mg In 25 Sodium Chloride 0.9% 100 ml @ 5 MG/HR 5 mls/hr IV .Q24H JUSTINE Rx#:[id number] Oral 540 Other: Voiding Method Toilet Urinal # Voids 3 - Labs CBC & Chem 7: 09/13/23 05:20 09/13/23 05:20 Labs: Abnormal Lab Results - Last 24 Hours (Table) 09/12/23 09/12/23 09/12/23 Range/Units 14:04 14:04 14:04 RBC 4.01 L (4.30-5.90) m/uL Hgb 12.0 L (13.0-17.5) gm/dL Hct 36.8 L (39.0-53.0) % RDW 17.8 H (11.5-15.5) % Plt Count (150-450) k/uL Lymphocytes # 0.7 L (1.0-4.8) k/uL PT 14.4 H (10.0-12.5) sec INR 1.4 H (<1.2) Sodium 130 L (137-145) mmol/L Potassium (3.5-5.1) mmol/L Chloride 95 L (98-107) mmol/L Carbon Dioxide 17 L (22-30) mmol/L BUN 7 L (9-20) mg/dL Creatinine 0.49 L (0.66-1.25) mg/dL Glucose 201 H (74-99) mg/dL POC Glucose (mg/dL) (70-110) mg/dL Hemoglobin A1c (<=6.0) % Plasma Lactic Acid Kailash (0.7-2.0) mmol/L Calcium 8.3 L (8.4-10.2) mg/dL Phosphorus 5.1 H (2.5-4.5) mg/dL Magnesium 1.0 L (1.6-2.3) mg/dL AST 80 H (17-59) U/L Alkaline Phosphatase 127 H (38-126) U/L Urine Opiates Screen (NotDetected) U Tricyclic Antidepress (NotDetected) U Benzodiazepines Scrn (NotDetected) 09/12/23 09/12/23 09/12/23 Range/Units 14:04 17:19 19:00 RBC (4.30-5.90) m/uL Hgb (13.0-17.5) gm/dL Hct (39.0-53.0) % RDW (11.5-15.5) % Plt Count (150-450) k/uL Lymphocytes # (1.0-4.8) k/uL PT (10.0-12.5) sec INR (<1.2) Sodium (137-145) mmol/L Potassium (3.5-5.1) mmol/L Chloride (98-107) mmol/L Carbon Dioxide (22-30) mmol/L BUN (9-20) mg/dL Creatinine (0.66-1.25) mg/dL Glucose (74-99) mg/dL POC Glucose (mg/dL) (70-110) mg/dL Hemoglobin A1c 7.4 H (<=6.0) % Plasma Lactic Acid Kailash 6.3 H* 5.3 H* (0.7-2.0) mmol/L Calcium (8.4-10.2) mg/dL Phosphorus (2.5-4.5) mg/dL Magnesium (1.6-2.3) mg/dL AST (17-59) U/L Alkaline Phosphatase (38-126) U/L Urine Opiates Screen (NotDetected) U Tricyclic Antidepress (NotDetected) U Benzodiazepines Scrn (NotDetected) 09/12/23 09/12/23 09/13/23 Range/Units 20:08 21:17 00:30 RBC (4.30-5.90) m/uL Hgb (13.0-17.5) gm/dL Hct (39.0-53.0) % RDW (11.5-15.5) % Plt Count (150-450) k/uL Lymphocytes # (1.0-4.8) k/uL PT (10.0-12.5) sec INR (<1.2) Sodium (137-145) mmol/L Potassium (3.5-5.1) mmol/L Chloride (98-107) mmol/L Carbon Dioxide (22-30) mmol/L BUN (9-20) mg/dL Creatinine (0.66-1.25) mg/dL Glucose (74-99) mg/dL POC Glucose (mg/dL) 129 H (70-110) mg/dL Hemoglobin A1c (<=6.0) % Plasma Lactic Acid Kailash 4.4 H* 4.1 H* (0.7-2.0) mmol/L Calcium (8.4-10.2) mg/dL Phosphorus (2.5-4.5) mg/dL Magnesium (1.6-2.3) mg/dL AST (17-59) U/L Alkaline Phosphatase (38-126) U/L Urine Opiates Screen (NotDetected) U Tricyclic Antidepress (NotDetected) U Benzodiazepines Scrn (NotDetected) 09/13/23 09/13/23 09/13/23 Range/Units 04:01 05:20 05:20 RBC 3.58 L (4.30-5.90) m/uL Hgb 10.7 L (13.0-17.5) gm/dL Hct 32.8 L (39.0-53.0) % RDW 18.2 H (11.5-15.5) % Plt Count 139 L (150-450) k/uL Lymphocytes # (1.0-4.8) k/uL PT (10.0-12.5) sec INR (<1.2) Sodium 125 L (137-145) mmol/L Potassium 3.4 L (3.5-5.1) mmol/L Chloride 93 L (98-107) mmol/L Carbon Dioxide 21 L (22-30) mmol/L BUN 4 L (9-20) mg/dL Creatinine 0.55 L (0.66-1.25) mg/dL Glucose 140 H (74-99) mg/dL POC Glucose (mg/dL) (70-110) mg/dL Hemoglobin A1c (<=6.0) % Plasma Lactic Acid Kailash (0.7-2.0) mmol/L Calcium 7.9 L (8.4-10.2) mg/dL Phosphorus (2.5-4.5) mg/dL Magnesium (1.6-2.3) mg/dL AST 72 H (17-59) U/L Alkaline Phosphatase (38-126) U/L Urine Opiates Screen Detected H (NotDetected) U Tricyclic Antidepress Detected H (NotDetected) U Benzodiazepines Scrn Detected H (NotDetected) 09/13/23 09/13/23 Range/Units 05:20 06:08 RBC (4.30-5.90) m/uL Hgb (13.0-17.5) gm/dL Hct (39.0-53.0) % RDW (11.5-15.5) % Plt Count (150-450) k/uL Lymphocytes # (1.0-4.8) k/uL PT (10.0-12.5) sec INR (<1.2) Sodium (137-145) mmol/L Potassium (3.5-5.1) mmol/L Chloride (98-107) mmol/L Carbon Dioxide (22-30) mmol/L BUN (9-20) mg/dL Creatinine (0.66-1.25) mg/dL Glucose (74-99) mg/dL POC Glucose (mg/dL) 161 H (70-110) mg/dL Hemoglobin A1c (<=6.0) % Plasma Lactic Acid Kailash 3.6 H* (0.7-2.0) mmol/L Calcium (8.4-10.2) mg/dL Phosphorus (2.5-4.5) mg/dL Magnesium (1.6-2.3) mg/dL AST (17-59) U/L Alkaline Phosphatase (38-126) U/L Urine Opiates Screen (NotDetected) U Tricyclic Antidepress (NotDetected) U Benzodiazepines Scrn (NotDetected)
[2023-09-13 16:06] LABS: Glucose,Whole Blood 165 mg/dL (70-110)
--- NOTE | 2023-09-13 18:37 | P.CRDCN ---
History of Present Illness Consult date: 09/13/23 History of present illness: HISTORY OF PRESENTING ILLNESS 57-year-old with PMH of HTN, dyslipidemia and chronic alcohol use was diagnosed with atrial fibrillation with RVR 1 week ago when he was hospitalized for generalized fatigue. He was discharged home on metoprolol and Eliquis. This time patient presented to the hospital with concerns of possible delirium tremens and alcohol withdrawal syndromes. On admission he was noticed to be in atrial fibrillation with RVR. He was started on Cardizem drip. Currently he is rate controlled. He denies having any active chest pain chest pressure shortness of breath. He is not having any signs and symptoms of fluid overload REVIEW OF SYSTEMS 14 point review of system is negative except what is mentioned above in HPI. PHYSICAL EXAMINATION Vital signs reviewed. Head: Normocephalic. Eyes: Sclerae nonicteric. Neck: Brisk carotid upstroke, no jugular venous distention. Lungs: Clear to auscultation. Heart: Regular rate and rhythm, S1-S2, no S3, no murmur or rub. Abdomen: Soft nontender, positive bowel sounds no organomegaly. Extremities: No edema, intact distal pulses. Neuro: Alert, oritented, no focal deficits ASSESSMENT Atrial fibrillation with rapid ventricular response. Currently rate controlled Alcohol withdrawal symptoms Electrolyte imbalance with hypokalemia and hypomagnesemia PLAN Continue Eliquis 5 mg twice a day Continue flecainide 50 minutes twice a day, metoprolol 75 mg BID. If patient is in atrial fibrillation tomorrow morning, we will increase his Flecainide to 100 mg Supportive management for alcohol withdrawal as per primary team Other comorbid is to be managed by primary team Past Medical History Past Medical History: Hyperlipidemia, Hypertension History of Any Multi-Drug Resistant Organisms: None Reported Additional Past Surgical History / Comment(s): rt bicep surgery Past Anesthesia/Blood Transfusion Reactions: No Reported Reaction Past Psychological History: No Psychological Hx Reported Smoking Status: Former smoker Past Alcohol Use History: Daily Past Drug Use History: None Reported - Past Family History Father History Unknown: Yes Medications and Allergies Home Medications Medication Instructions Recorded Confirmed Type Cyclobenzaprine [Flexeril] 10 mg PO DAILY PRN 12/03/19 09/12/23 History Omeprazole 20 mg PO DAILY 12/03/19 09/12/23 History Rosuvastatin [Crestor] 10 mg PO HS 12/03/19 09/12/23 History gemfibroziL [Lopid] 600 mg PO BID 12/03/19 09/12/23 History Apixaban [Eliquis] 5 mg PO BID #60 tab 08/07/22 09/12/23 Rx Flecainide [Tambocor] 50 mg PO Q12HR 09/12/23 09/12/23 History Folic Acid 1 mg PO DAILY 09/12/23 09/12/23 History Furosemide [Lasix] 20 mg PO DAILY 09/12/23 09/12/23 History Metoprolol Tartrate [Lopressor] 75 mg PO BID 09/12/23 09/12/23 History Sertraline [Zoloft] 50 mg PO DAILY 09/12/23 09/12/23 History Thiamine [Vitamin B-1] 100 mg PO DAILY 09/12/23 09/12/23 History Allergies Allergy/AdvReac Type Severity Reaction Status Date / Time No Known Allergies Allergy Verified 09/12/23 16:07 Physical Exam Vitals: Vital Signs Temp Pulse Resp BP Pulse Ox 09/13/23 17:03 97.8 F 102 H 20 126/81 96 09/13/23 11:34 91 20 139/99 97 09/13/23 08:52 98 09/13/23 08:12 97.8 F 104 H 28 H 133/79 97 09/13/23 04:00 98.2 F 99 18 172/93 97 09/13/23 00:00 98.3 F 99 18 126/79 99 09/12/23 19:41 98.4 F 117 H 20 141/101 98 Intake and Output 09/13/23 09/13/23 09/13/23 06:59 14:59 22:59 Intake Total 1115 756.577 7397 Output Total 1300 875 Balance 1115 -1085.417 525 Intake: Intake, IV Titration 575 96.583 1160 Amount Dextrose 5%-0.45% NaCl 1, 550 660 000 ml @ 110 mls/hr IV . Q9H6M [facility] Rx#:[id number] Diltiazem 125 mg In 25 96.583 Sodium Chloride 0.9% 100 ml @ 5 MG/HR 5 mls/hr IV .Q24H [facility] Rx#:[id number] Magnesium Sulfate-D5w Pmx 200 1 gm In Dextrose/Water 1 100ml.bag @ 100 mls/hr IVPB Q1H [facility] Rx#: [id number] Sodium Chloride 0.9% 1, 300 000 ml @ 75 mls/hr IV . [id number] [facility] Rx#:[id number] Oral 540 118 240 Output: Urine 1300 875 Other: Voiding Method Toilet Urinal # Voids 3 Results 09/13/23 05:20 09/13/23 05:20 Cardiac Enzymes 09/12/23 09/13/23 Range/Units 19:00 05:20 AST 72 H (17-59) U/L Troponin I <0.012 (0.000-0.034) ng/mL CBC 09/13/23 Range/Units 05:20 WBC 7.6 (3.8-10.6) k/uL RBC 3.58 L (4.30-5.90) m/uL Hgb 10.7 L (13.0-17.5) gm/dL Hct 32.8 L (39.0-53.0) % Plt Count 139 L (150-450) k/uL Comprehensive Metabolic Panel 09/13/23 Range/Units 05:20 Sodium 125 L (137-145) mmol/L Potassium 3.4 L (3.5-5.1) mmol/L Chloride 93 L (98-107) mmol/L Carbon Dioxide 21 L (22-30) mmol/L BUN 4 L (9-20) mg/dL Creatinine 0.55 L (0.66-1.25) mg/dL Glucose 140 H (74-99) mg/dL Calcium 7.9 L (8.4-10.2) mg/dL AST 72 H (17-59) U/L ALT 41 (4-49) U/L Alkaline Phosphatase 114 (38-126) U/L Total Protein 6.4 (6.3-8.2) g/dL Albumin 3.7 (3.5-5.0) g/dL Current Medications Generic Name Dose Route Start Last Admin Trade Name Freq PRN Reason Stop Dose Admin Apixaban 5 mg 09/12/23 21:00 09/13/23 08:23 Apixaban 5 Mg Tab PO 5 mg BID [facility] Administration Protocol Atorvastatin Calcium 20 mg 09/12/23 21:00 09/12/23 19:49 Atorvastatin 20 Mg Tab PO 20 mg HS [facility] Administration Chlordiazepoxide HCl 50 mg 09/12/23 22:00 09/13/23 16:54 Chlordiazepoxide 25 Mg Cap PO 50 mg TID [facility] Administration Dextrose/Water 25 ml 09/12/23 18:27 Dextrose 50% Syringe 50 Ml IVP PER PROTOCOL PRN Hypoglycemia Protocol Dextrose/Water 50 ml 09/12/23 18:27 Dextrose 50% Syringe 50 Ml IVP PER PROTOCOL PRN Hypoglycemia Protocol Fenofibrate 160 mg 09/13/23 09:00 09/13/23 08:23 Fenofibrate 160 Mg Tab PO 160 mg DAILY [facility] Administration Flecainide Acetate 50 mg 09/12/23 21:00 09/13/23 08:23 Flecainide 50 Mg Tab PO 50 mg Q12HR [facility] Administration Folic Acid 1 mg 09/13/23 09:00 09/13/23 08:23 Folic Acid 1 Mg Tab PO 1 mg DAILY [facility] Administration Sodium Chloride 1,000 mls @ 75 mls/hr 09/13/23 15:15 09/13/23 14:00 Saline 0.9% IV 75 mls/hr .[id number] [facility] Administration Insulin Aspart 0 unit 09/12/23 21:00 09/13/23 16:54 Insulin Aspart (Novolog) 100 Unit/Ml Vial SQ 2 unit ACHS [facility] Administration Protocol Lorazepam 2 mg 09/12/23 15:30 09/12/23 18:22 Lorazepam 2 Mg/Ml Inj IV 09/14/23 15:31 2 mg Q10M PRN Administration CIWA 16 or higher Lorazepam 1 mg 09/12/23 15:30 09/12/23 23:34 Lorazepam 2 Mg/Ml Inj IV 1 mg Q2HR PRN Administration CIWA 8 or 9 Lorazepam 1 mg 09/12/23 15:30 09/13/23 08:24 Lorazepam 2 Mg/Ml Inj IV 1 mg Q1HR PRN Administration CIWA 10 to 15 Lorazepam 1 mg 09/12/23 17:11 09/13/23 17:49 Lorazepam 2 Mg/Ml Inj IV 1 mg Q2HR PRN Administration CIWA 8 or 9 Magnesium Oxide 400 mg 09/13/23 09:00 09/13/23 08:23 Magnesium Oxide 400 Mg Tab PO 400 mg DAILY [facility] Administration Metoprolol Tartrate 75 mg 09/12/23 21:00 09/13/23 08:24 Metoprolol Tartrate 25 Mg Tab PO 75 mg BID [facility] Administration Miscellaneous Information 1 each 09/12/23 18:37 Rx Info: Iv Contrast Was Given 1 Each Misc MISCELLANE 09/14/23 18:37 DAILY PRN Per Protocol Morphine Sulfate 4 mg 09/12/23 15:30 09/13/23 17:00 Morphine Sulfate 4 Mg/Ml Syringe IV 4 mg Q4HR PRN Administration Severe Pain (Scale 7 to 10) Multivitamins 1 each 09/13/23 09:00 09/13/23 08:23 Multivitamins, Thera 1 Each Tab PO 1 each DAILY [facility] Administration Naloxone HCl 0.2 mg 09/12/23 15:22 Naloxone 0.4 Mg/Ml 1 Ml Vial IV Q2M PRN Opioid Reversal Ondansetron HCl 4 mg 09/12/23 15:30 Ondansetron 4 Mg/2 Ml Vial IVP Q8HR PRN Nausea And Vomiting Sertraline HCl 50 mg 09/13/23 09:00 09/13/23 08:23 Sertraline 50 Mg Tab PO 50 mg DAILY [facility] Administration Thiamine HCl 100 mg 09/13/23 09:00 09/13/23 08:23 Thiamine 100 Mg Tab PO 100 mg DAILY [facility] Administration Intake and Output 09/13/23 09/13/23 09/13/23 06:59 14:59 22:59 Intake Total 1115 640.536 3280 Output Total 1300 875 Balance 1115 -1085.417 525 Intake: Intake, IV Titration 575 96.583 1160 Amount Dextrose 5%-0.45% NaCl 1, 550 660 000 ml @ 110 mls/hr IV . Q9H6M [facility] Rx#:[id number] Diltiazem 125 mg In 25 96.583 Sodium Chloride 0.9% 100 ml @ 5 MG/HR 5 mls/hr IV .Q24H [facility] Rx#:[id number] Magnesium Sulfate-D5w Pmx 200 1 gm In Dextrose/Water 1 100ml.bag @ 100 mls/hr IVPB Q1H [facility] Rx#: [id number] Sodium Chloride 0.9% 1, 300 000 ml @ 75 mls/hr IV . [id number] [facility] Rx#:[id number] Oral 540 118 240 Output: Urine 1300 875 Other: Voiding Method Toilet Urinal # Voids 3 09/13/23 05:20 09/13/23 05:20
[2023-09-13 20:23] LABS: African American GFR (CKD) >90 (>60 ml/min/1.73 sqM); Anion Gap 8 mmol/L; Blood Urea Nitrogen 6 mg/dL (9-20); Calcium 8.3 mg/dL (8.4-10.2); Carbon Dioxide 21 mmol/L (22-30); Chloride 102 mmol/L (98-107); Glucose 114 mg/dL (74-99); Non-African American GFR(CKD) >90 (>60 ml/min/1.73 sqM); Potassium 4.1 mmol/L (3.5-5.1); Sodium 131 mmol/L (137-145)
[2023-09-13 20:27] LABS: Glucose,Whole Blood 136 mg/dL (70-110)
[2023-09-13] MEDS: ATORVASTATIN 20 MG TAB PO SCH (20:45)
[2023-09-14] MEDS: LORazepam 2 MG/ML INJ IV PRN ×3 (01:07→08:30)
[2023-09-14] MEDS: MORPHINE SULFATE 4 MG/ML SYRINGE IV PRN ×3 (01:07→12:30)
[2023-09-14] MEDS: SODIUM CHLORIDE 0.9% 1,000 ML IV SCH ×3 (04:46→21:24)
[2023-09-14 05:59] LABS: Glucose,Whole Blood 139 mg/dL (70-110)
[2023-09-14] MEDS: INSULIN ASPART (NovoLOG) 100 UNIT/ML VIAL SQ SCH ×4 (08:14→20:42)
[2023-09-14] MEDS: METOPROLOL TARTRATE 25 MG TAB PO SCH ×2 (08:20→21:23)
[2023-09-14] MEDS: SERTRALINE 50 MG TAB PO SCH (08:20)
[2023-09-14] MEDS: MULTIVITAMINS, THERA 1 EACH TAB PO SCH (08:20)
[2023-09-14] MEDS: APIXABAN 5 MG TAB PO SCH ×2 (08:20→21:23)
[2023-09-14] MEDS: THIAMINE 100 MG TAB PO SCH (08:20)
[2023-09-14] MEDS: FLECAINIDE 50 MG TAB PO SCH ×2 (08:20→21:23)
[2023-09-14] MEDS: FOLIC ACID 1 MG TAB PO SCH (08:20)
[2023-09-14] MEDS: MAGNESIUM OXIDE 400 MG TAB PO SCH (08:20)
[2023-09-14] MEDS: chlordiazePOXIDE 25 MG CAP PO SCH ×3 (08:20→21:23)
[2023-09-14] MEDS: FENOFIBRATE 160 MG TAB PO SCH (08:21)
[2023-09-14 08:55] LABS: Anisocytosis Slight; HCT 32.4 % (39.0-53.0); HGB 9.9 gm/dL (13.0-17.5); Hypochromasia Marked; MCH 29.2 pg (25.0-35.0); MCHC 30.7 g/dL (31.0-37.0); MCV 95.2 fL (80.0-100.0); Macrocytosis Slight; Mean Platelet Volume 9.6; Platelet Count 134 k/uL (150-450); RDW 17.9 % (11.5-15.5)
[2023-09-14 10:30] LABS: ALT 33 U/L (4-49); AST 58 U/L (17-59); African American GFR (CKD) >90 (>60 ml/min/1.73 sqM); Albumin 3.5 g/dL (3.5-5.0); Alkaline Phosphatase 147 U/L (38-126); Anion Gap 10 mmol/L; Blood Urea Nitrogen 8 mg/dL (9-20); Calcium 8.3 mg/dL (8.4-10.2); Carbon Dioxide 18 mmol/L (22-30); Chloride 102 mmol/L (98-107); Glucose 163 mg/dL (74-99); Magnesium 2.1 mg/dL (1.6-2.3); Non-African American GFR(CKD) >90 (>60 ml/min/1.73 sqM); Potassium 4.1 mmol/L (3.5-5.1); Sodium 130 mmol/L (137-145); Total Bilirubin 0.7 mg/dL (0.2-1.3); Total Protein 6.2 g/dL (6.3-8.2)
[2023-09-14 11:29] LABS: Glucose,Whole Blood 122 mg/dL (70-110)
--- NOTE | 2023-09-14 14:43 | P.PN ---
Subjective Progress Note Date: 09/14/23 Hospital Course: Patient is a 58-year-old male with a past medical history of chronic atrial fibrillation on anticoagulation with Eliquis, hypertension, hyperlipidemia, nicotine dependence, and alcoholism with daily alcohol use and alcohol cirrhosis. Patient reports drinking approximately 1 pint of liquor and 12 beers daily. Patient reports last drink being last night. Patient currently presenting to the emergency department for evaluation secondary to alcohol withdrawal and severe DTs. Patient reports he is experiencing uncontrolled tremors, headache, diaphoresis, palpitations, chest pain, dizziness, nausea, and vomiting. Patient reports these symptoms are similar to previous withdraws and reports multiple hospitalizations including previous ICU stays for alcohol withdrawal. Patient states his hid all of the alcohol in the house from him and that is why he is in withdrawal. Patient underwent full evaluation in the emergency department. CT head was completed showing age related atrophic and chronic small vessel ischemic changes negative for acute intercranial process. EKG completed showing atrial fibrillation with RVR at 114 bpm. Chest x-ray completed negative for acute cardiopulmonary process showing mild thickening of right paratracheal stripe, recommending follow-up CT chest. Labs completed and reviewed. CBC showing normocytic anemia with hemoglobin of 12.0. Coagulation profile showing elevated INR 1.4 and PT of 14.4. BMP showing hyponatremia sodium of 130, hypochloremia with chloride of 75, bicarb 17, an elevated anion gap of 18. Renal function normal findings. Glucose slightly elevated at 201. Lactic acid 6.3. Magnesium 1.0. Liver profile showing elevated AST of 80 with alkaline phosphatase of 127. Troponin less than 0.012 proBNP 1440. TSH 0.738. Fluids A, influenza B, RSV, and Covid PCR all negative . Patient was admitted to our services to stepdown unit for alcoholic ketoacidosis and acute alcohol withdrawal with severe DTs. CT chest was ordered to follow-up on radiology reports of thickening of right paratracheal stripe and upon review of radiology report, stating Azygous lobe present on the right which likely accounts for the radiographic appearance of thickened paratracheal stripe lungs otherwise clear and CT was negative showing no acute process of the chest. Physical exam: Patient seen and fully evaluated at bedside this morning. Patient appears to be doing much better this morning. RN reports patient was able to take a shower and eat breakfast. He continues to have mild tremors but otherwise denies having any complaints at this time. Vital signs reviewed and stable. General: Nontoxic, patient appears more comfortable this morning. Derm: normal coloration for ethnicity. Head: normocephalic and symmetric with contusion/abrasion to left side of forehead. Eyes: EOMs intact, no lid lag, and anicteric sclera Mouth: no lip lesions, mucus membranes moist Cardiovascular: , irregularly irregular and tachycardic, no murmur noted, positive posterior tibial pulses bilaterally, and cap refill < 2 seconds. Lungs: Respirations even, regular, and unlabored on room air. Lungs CTA bilaterally, no rhonchi, no rales, no wheezing, and no accessory muscle usage. Abdominal: soft, nontender to palpation, no guarding, no appreciable organomegaly Ext: ROM intact. No gross muscle atrophy, no edema, no contractures. Mild tremors Neuro: Speech clear, face symmetrical and CN II-XII grossly intact with no noted focal neuro deficits Psych: Alert and oriented to person, place, time, and situation. patient appears anxious reporting unable to get comfortable and fidgety throughout examination. Assessment and Plan of Care: Acute Alcohol withdrawal with DTs Alcoholic ketoacidosis Elevated Anion gap metabolic acidosis without significant hyperglycemia secondary to alcoholic ketoacidosis Hypomagnesemia, secondary to daily alcohol abuse Hyponatremia, secondary to daily alcohol abuse Elevated liver enzymes, secondary to daily alcohol abuse and underlying alcoholic cirrhosis Elevated PT/INR secondary to alcohol cirrhosis -Continue monitoring of CIWA scores and patient to be medicated with Ativan 0.5 mg every 4 hours as needed for CIWA score of 4-5, Ativan 1 mg every 4 hours for CIWA score of 6-7, Ativan 2 mg every 3 hours CIWA score of 8-9, and Ativan 2 mg every 2 hours forr CIWA score of 10 or greater. Currently CIWA score is 13 -Over the past 24 hours, patient has received a total of 9 mg of Ativan along with scheduled Librium 50 mg by mouth every 8 hours -Continue scheduled Librium 50 mg 3 times daily and titrate down once patient has decreased need for benzodiazepines with symptom triggered management based on CIWA scores.. -Continuous IV hydration with 0.9% normal saline at 75 mL's per hour -Continue Thiamine 100 mg twice a day, Multivitamin daily and Folate 1 mg daily -Seizure, fall, aspiration, and elopement precautions to continue. -Continued close monitoring of electrolytes and replace as needed. Atrial fibrillation with RVR, patient with chronic atrial fibrillation however RVR is likely secondary to acute alcohol withdrawal -Telemetry monitoring. -Cardiology consulted for A. fib RVR -Patient remains in atrial fibrillation however currently controlled ventricular rate 80s to 110s. -Patient to continue Eliquis 5 mg twice daily, atorvastatin 20 mg daily, fenofibrate 160 mg daily, metoprolol 75 mg twice daily, and flecainide 50 mg every 12 hours. Fall at home prior to arrival resulting in head injury, patient on Eliquis -CT head was negative for acute intracranial process showing age related atrophic and chronic small vessel ischemic changes. Abnormal imaging findings -X-ray chest reporting concerns of thickening of right paratracheal stripe -CT chest was ordered to follow-up on radiology reports of thickening of right paratracheal stripe and upon review of radiology report, stating Azygous lobe present on the right which likely accounts for the radiographic appearance of thickened paratracheal stripe lungs otherwise clear and CT was negative showing no acute process of the chest. Data reviewed: Vital signs reviewed. Blood pressure 122/77, heart rate 87, respiratory rate 20, temp 98.0F, SpO2 of 90% on room air. Labs completed and reviewed. CBC showing bicytopenia with hemoglobin of 9.9 and platelet count of 134. BMP revealing hyponatremia with sodium of 130 and hypocarbia with bicarb of 18. Liver profile showing improvement with AST 58, ALT of 33, and slightly elevated alkaline phosphatase of 147. CODE STATUS: Full code DVT prophylaxis: Mikkiquradha Discussed with: Patient and RN Anticipated discharge date: clinical course to determine Anticipated discharge place: home versus inpatient drug and alcohol rehabilitation facility Patient was seen independently by Nurse Practitioner. This document was prepared using [employer] dictation software. 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 Derek Gupta NP rendered care for this patient independently, reviewed the findings and plan as documented in the note above. I did not physically speak with or examine the patient on this date. Objective - Vital Signs Vital signs: Vital Signs Temp 98 F 09/14/23 03:24 Pulse 87 09/14/23 03:24 Resp 20 09/14/23 03:24 BP 122/77 09/14/23 03:24 Pulse Ox 98 09/14/23 03:24 FiO2 Intake & Output 09/13/23 09/14/23 09/14/23 18:59 06:59 18:59 Intake Total 3881.339 4178 Output Total 2175 650 Balance -560.417 550 Intake: Intake, IV Titration 1256.583 450 Amount Dextrose 5%-0.45% NaCl 1, 660 000 ml @ 110 mls/hr IV . Q9H6M [facility] Rx#:[id number] Diltiazem 125 mg In 96.583 Sodium Chloride 0.9% 100 ml @ 5 MG/HR 5 mls/hr IV .Q24H [facility] Rx#:[id number] Magnesium Sulfate-D5w Pmx 200 1 gm In Dextrose/Water 1 100ml.bag @ 100 mls/hr IVPB Q1H [facility] Rx#: [id number] Sodium Chloride 0.9% 1, 300 450 000 ml @ 75 mls/hr IV . [id number] [facility] Rx#:[id number] Oral 358 750 Output: Urine 2175 650 Other: Voiding Method Toilet Urinal # Voids 1 - Labs CBC & Chem 7: 09/14/23 08:03 09/14/23 08:03 Labs: Abnormal Lab Results - Last 24 Hours (Table) 09/13/23 09/13/23 09/13/23 Range/Units 11:20 16:02 20:01 RBC (4.30-5.90) m/uL Hgb (13.0-17.5) gm/dL Hct (39.0-53.0) % MCHC (31.0-37.0) g/dL RDW (11.5-15.5) % Plt Count (150-450) k/uL Sodium 131 L (137-145) mmol/L Carbon Dioxide 21 L (22-30) mmol/L BUN 6 L (9-20) mg/dL Glucose 114 H (74-99) mg/dL POC Glucose (mg/dL) 164 H 165 H (70-110) mg/dL Calcium 8.3 L (8.4-10.2) mg/dL 09/13/23 09/14/23 09/14/23 Range/Units 20:26 05:58 08:03 RBC 3.40 L (4.30-5.90) m/uL Hgb 9.9 L (13.0-17.5) gm/dL Hct 32.4 L (39.0-53.0) % MCHC 30.7 L (31.0-37.0) g/dL RDW 17.9 H (11.5-15.5) % Plt Count 134 L (150-450) k/uL Sodium (137-145) mmol/L Carbon Dioxide (22-30) mmol/L BUN (9-20) mg/dL Glucose (74-99) mg/dL POC Glucose (mg/dL) 136 H 139 H (70-110) mg/dL Calcium (8.4-10.2) mg/dL
[2023-09-14 16:31] LABS: Glucose,Whole Blood 153 mg/dL (70-110)
--- NOTE | 2023-09-14 19:16 | P.PN ---
Subjective Progress Note Date: 09/14/23 Progress note: Patient is coming along his alcohol withdrawal. He continues to be in atrial fibrillation which is rate controlled. He is otherwise medically stable. HISTORY OF PRESENTING ILLNESS 57-year-old with PMH of HTN, dyslipidemia and chronic alcohol use was diagnosed with atrial fibrillation with RVR 1 week ago when he was hospitalized for generalized fatigue. He was discharged home on metoprolol and Eliquis. This time patient presented to the hospital with concerns of possible delirium tremens and alcohol withdrawal syndromes. On admission he was noticed to be in atrial fibrillation with RVR. He was started on Cardizem drip. Currently he is rate controlled. He denies having any active chest pain chest pressure shortness of breath. He is not having any signs and symptoms of fluid overload REVIEW OF SYSTEMS 14 point review of system is negative except what is mentioned above in HPI. PHYSICAL EXAMINATION Vital signs reviewed. Head: Normocephalic. Eyes: Sclerae nonicteric. Neck: Brisk carotid upstroke, no jugular venous distention. Lungs: Clear to auscultation. Heart: Regular rate and rhythm, S1-S2, no S3, no murmur or rub. Abdomen: Soft nontender, positive bowel sounds no organomegaly. Extremities: No edema, intact distal pulses. Neuro: Alert, oritented, no focal deficits ASSESSMENT Atrial fibrillation with rapid ventricular response. Currently rate controlled Alcohol withdrawal symptoms Electrolyte imbalance with hypokalemia and hypomagnesemia PLAN Continue Eliquis 5 mg twice a day Continue flecainide 50 minutes twice a day, metoprolol 75 mg BID. Supportive management for alcohol withdrawal as per primary team Other comorbid is to be managed by primary team Objective - Vital Signs Vital signs: Vital Signs Temp 98.4 F 09/14/23 16:45 Pulse 96 09/14/23 16:45 Resp 20 09/14/23 16:45 BP 117/71 09/14/23 16:45 Pulse Ox 97 09/14/23 16:45 FiO2 Intake & Output 09/14/23 09/14/23 09/15/23 06:59 18:59 06:59 Intake Total 1200 2170 Output Total 650 Balance 550 2170 Intake: Intake, IV Titration 450 900 Amount Sodium Chloride 0.9% 1, 450 900 000 ml @ 75 mls/hr IV . [id number] [facility] Rx#:[id number] Oral 750 1270 Output: Urine 650 Other: Voiding Method Toilet Urinal # Voids 1 2 - Labs CBC & Chem 7: 09/14/23 08:03 09/14/23 08:03 Labs: Abnormal Lab Results - Last 24 Hours (Table) 09/13/23 09/13/23 09/14/23 Range/Units 20:01 20:26 05:58 RBC (4.30-5.90) m/uL Hgb (13.0-17.5) gm/dL Hct (39.0-53.0) % MCHC (31.0-37.0) g/dL RDW (11.5-15.5) % Plt Count (150-450) k/uL Sodium 131 L (137-145) mmol/L Carbon Dioxide 21 L (22-30) mmol/L BUN 6 L (9-20) mg/dL Creatinine (0.66-1.25) mg/dL Glucose 114 H (74-99) mg/dL POC Glucose (mg/dL) 136 H 139 H (70-110) mg/dL Calcium 8.3 L (8.4-10.2) mg/dL Alkaline Phosphatase (38-126) U/L Total Protein (6.3-8.2) g/dL 09/14/23 09/14/23 09/14/23 Range/Units 08:03 08:03 11:27 RBC 3.40 L (4.30-5.90) m/uL Hgb 9.9 L (13.0-17.5) gm/dL Hct 32.4 L (39.0-53.0) % MCHC 30.7 L (31.0-37.0) g/dL RDW 17.9 H (11.5-15.5) % Plt Count 134 L (150-450) k/uL Sodium 130 L (137-145) mmol/L Carbon Dioxide 18 L (22-30) mmol/L BUN 8 L (9-20) mg/dL Creatinine 0.62 L (0.66-1.25) mg/dL Glucose 163 H (74-99) mg/dL POC Glucose (mg/dL) 122 H (70-110) mg/dL Calcium 8.3 L (8.4-10.2) mg/dL Alkaline Phosphatase 147 H (38-126) U/L Total Protein 6.2 L (6.3-8.2) g/dL 09/14/23 Range/Units 16:29 RBC (4.30-5.90) m/uL Hgb (13.0-17.5) gm/dL Hct (39.0-53.0) % MCHC (31.0-37.0) g/dL RDW (11.5-15.5) % Plt Count (150-450) k/uL Sodium (137-145) mmol/L Carbon Dioxide (22-30) mmol/L BUN (9-20) mg/dL Creatinine (0.66-1.25) mg/dL Glucose (74-99) mg/dL POC Glucose (mg/dL) 153 H (70-110) mg/dL Calcium (8.4-10.2) mg/dL Alkaline Phosphatase (38-126) U/L Total Protein (6.3-8.2) g/dL
[2023-09-14 20:37] LABS: Glucose,Whole Blood 142 mg/dL (70-110)
[2023-09-14] MEDS: ATORVASTATIN 20 MG TAB PO SCH (21:23)
[2023-09-15] MEDS: MORPHINE SULFATE 4 MG/ML SYRINGE IV PRN (03:23)
[2023-09-15 06:16] LABS: Glucose,Whole Blood 127 mg/dL (70-110)
[2023-09-15] MEDS: INSULIN ASPART (NovoLOG) 100 UNIT/ML VIAL SQ SCH ×4 (06:23→20:49)
[2023-09-15 08:22] LABS: Anisocytosis Slight; HCT 29.1 % (39.0-53.0); HGB 8.9 gm/dL (13.0-17.5); Hypochromasia Marked; MCH 29.2 pg (25.0-35.0); MCHC 30.6 g/dL (31.0-37.0); MCV 95.3 fL (80.0-100.0); Macrocytosis Slight; Mean Platelet Volume 9.2; Platelet Count 141 k/uL (150-450); RBC 3.05 m/uL (4.30-5.90); RDW 18.8 % (11.5-15.5); WBC 4.7 k/uL (3.8-10.6)
[2023-09-15 08:36] LABS: ALT 32 U/L (4-49); AST 60 U/L (17-59); African American GFR (CKD) >90 (>60 ml/min/1.73 sqM); Albumin 3.1 g/dL (3.5-5.0); Alkaline Phosphatase 137 U/L (38-126); Anion Gap 7 mmol/L; Blood Urea Nitrogen 8 mg/dL (9-20); Calcium 7.9 mg/dL (8.4-10.2); Carbon Dioxide 23 mmol/L (22-30); Chloride 104 mmol/L (98-107); Glucose 100 mg/dL (74-99); Magnesium 2.1 mg/dL (1.6-2.3); Non-African American GFR(CKD) >90 (>60 ml/min/1.73 sqM); Potassium 3.8 mmol/L (3.5-5.1); Sodium 134 mmol/L (137-145); Total Bilirubin 0.4 mg/dL (0.2-1.3); Total Protein 5.6 g/dL (6.3-8.2)
[2023-09-15] MEDS: APIXABAN 5 MG TAB PO SCH ×2 (09:03→20:16)
[2023-09-15] MEDS: chlordiazePOXIDE 25 MG CAP PO SCH ×3 (09:03→22:06)
[2023-09-15] MEDS: FLECAINIDE 50 MG TAB PO SCH ×2 (09:04→20:16)
[2023-09-15] MEDS: METOPROLOL TARTRATE 25 MG TAB PO SCH ×2 (09:04→20:16)
[2023-09-15] MEDS: FOLIC ACID 1 MG TAB PO SCH (09:04)
[2023-09-15] MEDS: SERTRALINE 50 MG TAB PO SCH (09:04)
[2023-09-15] MEDS: MULTIVITAMINS, THERA 1 EACH TAB PO SCH (09:04)
[2023-09-15] MEDS: THIAMINE 100 MG TAB PO SCH (09:04)
[2023-09-15] MEDS: FENOFIBRATE 160 MG TAB PO SCH (09:04)
[2023-09-15] MEDS: MAGNESIUM OXIDE 400 MG TAB PO SCH (09:04)
[2023-09-15] MEDS ORDERED: CYCLOBENZAPRINE 5 MG TAB PO PRN (10:59)
[2023-09-15 11:37] LABS: Glucose,Whole Blood 112 mg/dL (70-110)
[2023-09-15] MEDS: PANTOPRAZOLE 40 MG TABLET PO SCH (12:15)
[2023-09-15] MEDS: IBUPROFEN 600 MG TAB PO PRN (12:29)
--- NOTE | 2023-09-15 13:03 | P.PN ---
Subjective Progress Note Date: 09/15/23 HISTORY OF PRESENTING ILLNESS 57-year-old with PMH of HTN, dyslipidemia and chronic alcohol use was diagnosed with atrial fibrillation with RVR 1 week ago when he was hospitalized for generalized fatigue. He was discharged home on metoprolol and Eliquis. This time patient presented to the hospital with concerns of possible delirium tremens and alcohol withdrawal syndromes. On admission he was noticed to be in atrial fibrillation with RVR. He was started on Cardizem drip. Currently he is rate controlled. He denies having any active chest pain chest pressure shortness of breath. He is not having any signs and symptoms of fluid overload Progress Note Date: 09/14/23 Progress note: Patient is coming along his alcohol withdrawal. He continues to be in atrial fibrillation which is rate controlled. He is otherwise medically stable. 09/15 Patient is seen today in follow up. Patient remains in atrial fibrillation with rate controlled in the 80s. Blood pressure 124/71, pulse ox 99% on room air. Patient has been continued on metoprolol, flecainide and eliquis. He denies having any blood in his stools. Patient is complaining of pain in the lower left rib area and that he has not been able to sleep. He denies palpitations. He [place] is 8.9, creatinine 0.51. PHYSICAL EXAMINATION Vital signs reviewed. Head: Normocephalic. Eyes: Sclerae nonicteric. Neck: Brisk carotid upstroke, no jugular venous distention. Lungs: Clear to auscultation. Heart: Irregular rate and rhythm, S1-S2, no S3, no murmur or rub. Abdomen: Soft nontender, positive bowel sounds no organomegaly. Extremities: No edema, intact distal pulses. Neuro: Alert, oritented, no focal deficits ASSESSMENT Atrial fibrillation with rapid ventricular response. Currently rate controlled Alcohol withdrawal symptoms Electrolyte imbalance with hypokalemia and hypomagnesemia PLAN Continue Eliquis 5 mg twice a day Continue flecainide 50 minutes twice a day, metoprolol 75 mg BID. Supportive management for alcohol withdrawal as per primary team Other comorbid is to be managed by primary team Cardiology will sign off this case and follow on an as-needed basis. Please reconsult for any new concerns. Patient may follow-up in the office in one to 2 weeks. Nurse practitioner note has been reviewed, I agree with the documented findings and plan of care. Patient was seen and examined. Objective - Vital Signs Vital signs: Vital Signs Temp 97.6 F 09/14/23 19:50 Pulse 85 09/15/23 03:17 Resp 18 09/15/23 03:17 BP 124/71 09/15/23 03:17 Pulse Ox 99 09/15/23 03:17 FiO2 Intake & Output 09/14/23 09/15/23 09/15/23 18:59 06:59 18:59 Intake Total 2170 118 Balance 2170 118 Intake: Intake, IV Titration 900 Amount Sodium Chloride 0.9% 1, 900 000 ml @ 75 mls/hr IV . [id number] [facility] Rx#:[id number] Oral 1270 118 Other: Voiding Method Toilet Urinal # Voids 2 3 - Labs CBC & Chem 7: 09/15/23 07:00 09/15/23 07:00 Labs: Abnormal Lab Results - Last 24 Hours (Table) 09/14/23 09/14/23 09/14/23 Range/Units 08:03 11:27 16:29 RBC (4.30-5.90) m/uL Hgb (13.0-17.5) gm/dL Hct (39.0-53.0) % MCHC (31.0-37.0) g/dL RDW (11.5-15.5) % Plt Count (150-450) k/uL Sodium 130 L (137-145) mmol/L Carbon Dioxide 18 L (22-30) mmol/L BUN 8 L (9-20) mg/dL Creatinine 0.62 L (0.66-1.25) mg/dL Glucose 163 H (74-99) mg/dL POC Glucose (mg/dL) 122 H 153 H (70-110) mg/dL Calcium 8.3 L (8.4-10.2) mg/dL AST (17-59) U/L Alkaline Phosphatase 147 H (38-126) U/L Total Protein 6.2 L (6.3-8.2) g/dL Albumin (3.5-5.0) g/dL 09/14/23 09/15/23 09/15/23 Range/Units 20:36 06:15 07:00 RBC 3.05 L (4.30-5.90) m/uL Hgb 8.9 L (13.0-17.5) gm/dL Hct 29.1 L (39.0-53.0) % MCHC 30.6 L (31.0-37.0) g/dL RDW 18.8 H (11.5-15.5) % Plt Count 141 L (150-450) k/uL Sodium (137-145) mmol/L Carbon Dioxide (22-30) mmol/L BUN (9-20) mg/dL Creatinine (0.66-1.25) mg/dL Glucose (74-99) mg/dL POC Glucose (mg/dL) 142 H 127 H (70-110) mg/dL Calcium (8.4-10.2) mg/dL AST (17-59) U/L Alkaline Phosphatase (38-126) U/L Total Protein (6.3-8.2) g/dL Albumin (3.5-5.0) g/dL 09/15/23 Range/Units 07:00 RBC (4.30-5.90) m/uL Hgb (13.0-17.5) gm/dL Hct (39.0-53.0) % MCHC (31.0-37.0) g/dL RDW (11.5-15.5) % Plt Count (150-450) k/uL Sodium 134 L (137-145) mmol/L Carbon Dioxide (22-30) mmol/L BUN 8 L (9-20) mg/dL Creatinine 0.54 L (0.66-1.25) mg/dL Glucose 100 H (74-99) mg/dL POC Glucose (mg/dL) (70-110) mg/dL Calcium 7.9 L (8.4-10.2) mg/dL AST 60 H (17-59) U/L Alkaline Phosphatase 137 H (38-126) U/L Total Protein 5.6 L (6.3-8.2) g/dL Albumin 3.1 L (3.5-5.0) g/dL
--- NOTE | 2023-09-15 16:29 | P.PN ---
Subjective Progress Note Date: 09/15/23 (delayed charting seen at 1045) Patient is a 58-year-old male with chronic atrial fibrillation on anticoagulation with Eliquis, hypertension, dyslipidemia, nicotine dependency, and alcohol dependency who presented to the hospital with complaints of severe alcohol withdrawal after his had alcohol within the house. In the ER he underwent an extensive evaluation. He was found to have elevated INR at 1.4, sodium 1:30, chloride 75, bicarb 17, anion gap 18, glucose 201, lactic acid 6.3, magnesium 1, AST 80, alkaline phosphatase of 120, troponin less than 0.012, BNP 1440, TSH of 0.78. He was administered for alcohol withdrawal and alcoholic ketosis. He was started on scheduled Librium and CIWA protocol with Ativan. Cardiology was consulted and recommended continuing flecainide and metoprolol. Patient seen and examined at bedside with present. He states he is feeling "awful". He has a complaint of rib pain on the left-hand side after a fall several weeks ago. This is most painful with movement and deep coughing. He also reports difficulty sleeping. He has continued have some tremors and nausea. Him and his are unsure about next steps after discharge home, but are willing to talk with case management regarding possible outpatient treatment centers. Vital signs reviewed General: nontoxic, mild distress secondary to pain, appears at stated age Cardiovascular: S1S2 reg, no murmur, positive posterior tibial pulse bilateral, Lungs: Decreased breath sounds bilateral bilateral, no rhonchi, no rales , no accessory muscle use, pain to palpation of left ribs Abdominal: soft, nontender to palpation, no guarding, no appreciable organomegaly Ext: no gross muscle atrophy, no edema b/l lower extremities, no contractures Neuro: CN II-XI grossly intact, no focal neuro deficits Psych: Alert, oriented, appropriate affect Assessment/Plan: Acute Alcohol withdrawal with DTs Elevated liver enzymes, secondary to daily alcohol abuse and underlying alcoholic cirrhosis Elevated PT/INR secondary to probable alcohol cirrhosis Fall with rib contusion Thrombocytopenia, anemia suspect secondary to alcohol use - Decreased to 25 mg 3 times daily -Continue monitoring CIWA scores with Ativan dosing per score ranging between 0.5-2 mg -Case management discussed with patient plan for outpatient sobriety maintenance -Thiamine 100 mg twice daily, multivitamin daily, folic 1 mg by mouth daily - add motrin 600 mg QID prn pain, if pain is still uncotrolled have flexeril 5 mg TID to use- discussed ith nursing -Repeat CBC in a.m. regarding worsening anemia and thrombocytopenia. Repeat BMP in a.m. for monitoring of renal function due to NSAID use Atrial fibrillation, rapid ventricular response resolved HLD - Eliquis 5 mg twice daily, atorvastatin 20 mg daily, fenofibrate 160 mg daily, metoprolol 75 mg twice daily, and flecainide 50 mg every 12 hours. - Cardio note reviewed: follow-up in office in 2 weeks, will sign off Alcoholic ketoacidosis, resolved Hypomagnesemia, secondary to daily alcohol abuse, resolved Hyponatremia, secondary to daily alcohol abuse, resolved Imaging: None New Per Hospital course: CXR: mild thickening of the right paratracheal stripe CT head: Age-related atrophic and small vessel ischemic changes without acute intracranial process CTA chest: No acute process, azygous lobe present on the right anatomic merriment likely accounting for appearance on chest x-ray Data Review: Labs reviewed from today include CBC and CMP, unremarkable for hemoglobin 8.9, platelets 141, sodium 134, AST 60, alkaline phosphatase 137 DVT prophylaxis: eliquis Anticipated discharge date: 24-[address]: home This dictation was prepared using [employer] voice recognition software. Though every attempt is made to correct errors during dictation some may still exist. Objective - Vital Signs Vital signs: Vital Signs Temp 97.6 F 09/14/23 19:50 Pulse 90 09/15/23 14:00 Resp 16 09/15/23 14:00 BP 108/72 09/15/23 12:00 Pulse Ox 98 09/15/23 12:00 FiO2 Intake & Output 09/14/23 09/15/23 09/15/23 18:59 06:59 18:59 Intake Total 2170 236 Balance 2170 236 Intake: Intake, IV Titration 900 Amount Sodium Chloride 0.9% 1, 900 000 ml @ 75 mls/hr IV . [id number] [facility] Rx#:[id number] Oral 1270 236 Other: Voiding Method Toilet Toilet Urinal Urinal # Voids 2 3 - Labs CBC & Chem 7: 09/15/23 07:00 09/15/23 07:00 Labs: Abnormal Lab Results - Last 24 Hours (Table) 09/14/23 09/14/23 09/15/23 Range/Units 16:29 20:36 06:15 RBC (4.30-5.90) m/uL Hgb (13.0-17.5) gm/dL Hct (39.0-53.0) % MCHC (31.0-37.0) g/dL RDW (11.5-15.5) % Plt Count (150-450) k/uL Sodium (137-145) mmol/L BUN (9-20) mg/dL Creatinine (0.66-1.25) mg/dL Glucose (74-99) mg/dL POC Glucose (mg/dL) 153 H 142 H 127 H (70-110) mg/dL Calcium (8.4-10.2) mg/dL AST (17-59) U/L Alkaline Phosphatase (38-126) U/L Total Protein (6.3-8.2) g/dL Albumin (3.5-5.0) g/dL 09/15/23 09/15/23 09/15/23 Range/Units 07:00 07:00 11:35 RBC 3.05 L (4.30-5.90) m/uL Hgb 8.9 L (13.0-17.5) gm/dL Hct 29.1 L (39.0-53.0) % MCHC 30.6 L (31.0-37.0) g/dL RDW 18.8 H (11.5-15.5) % Plt Count 141 L (150-450) k/uL Sodium 134 L (137-145) mmol/L BUN 8 L (9-20) mg/dL Creatinine 0.54 L (0.66-1.25) mg/dL Glucose 100 H (74-99) mg/dL POC Glucose (mg/dL) 112 H (70-110) mg/dL Calcium 7.9 L (8.4-10.2) mg/dL AST 60 H (17-59) U/L Alkaline Phosphatase 137 H (38-126) U/L Total Protein 5.6 L (6.3-8.2) g/dL Albumin 3.1 L (3.5-5.0) g/dL
[2023-09-15 16:37] LABS: Glucose,Whole Blood 126 mg/dL (70-110)
[2023-09-15] MEDS: LORazepam 2 MG/ML INJ IV PRN ×2 (17:54→20:17)
[2023-09-15] MEDS: ATORVASTATIN 20 MG TAB PO SCH (20:16)
[2023-09-15 20:17] LABS: Glucose,Whole Blood 157 mg/dL (70-110)
[2023-09-16] MEDS: IBUPROFEN 600 MG TAB PO PRN ×2 (00:49→17:19)
--- NOTE | 2023-09-16 01:09 | US ---
EXAM: US Duplex Left Upper Extremity Veins CLINICAL HISTORY: ITS.REASON US Reason: r/o DVTPt had an IV in left forearm and was taken out yesterday. Redness, swelling, and pain in that area since yesterday. No hx of DVT. On blood thinners TECHNIQUE: Real-time duplex ultrasound scan of the left upper extremity veins integrating B-mode two-dimensional vascular structure, Doppler spectral analysis, color flow Doppler imaging and compression. COMPARISON: No relevant prior studies available. FINDINGS: Deep veins: Unremarkable. No DVT in the internal jugular, subclavian, axillary, or brachial veins. The veins demonstrate normal color flow, are normally compressible, with normal phasic flow and/or augmentation response. Superficial veins: Echoes within a superficial vein in the left forearm in the area of the old IV site. Soft tissues: Echogenic appearance of the soft tissues surrounding the superficial vein in the left forearm described above. IMPRESSION: 1. No evidence of DVT in the left upper extremity. 2. Echoes within a superficial vein in the left forearm in the area of the old IV site. May represent thrombosis of the superficial vein. 3. Echogenic appearance of the soft tissues surrounding the superficial vein in the left forearm described above. May reflect soft tissue edema. <MYCVCSECTION> Communications: 09/16/23 01:20 Verify Receipt Verified receipt with SILVIANO Packer on 09/16 01: 20 (-04:00)
[2023-09-16 06:13] LABS: Glucose,Whole Blood 128 mg/dL (70-110)
[2023-09-16] MEDS: INSULIN ASPART (NovoLOG) 100 UNIT/ML VIAL SQ SCH ×4 (06:26→20:12)
[2023-09-16] MEDS: PANTOPRAZOLE 40 MG TABLET PO SCH (06:28)
[2023-09-16] MEDS: FLECAINIDE 50 MG TAB PO SCH ×2 (08:36→21:05)
[2023-09-16] MEDS: MAGNESIUM OXIDE 400 MG TAB PO SCH (08:36)
[2023-09-16] MEDS: APIXABAN 5 MG TAB PO SCH ×2 (08:36→21:05)
[2023-09-16] MEDS: chlordiazePOXIDE 25 MG CAP PO SCH ×3 (08:36→21:05)
[2023-09-16] MEDS: THIAMINE 100 MG TAB PO SCH (08:36)
[2023-09-16] MEDS: FENOFIBRATE 160 MG TAB PO SCH (08:36)
[2023-09-16] MEDS: MULTIVITAMINS, THERA 1 EACH TAB PO SCH (08:36)
[2023-09-16] MEDS: METOPROLOL TARTRATE 25 MG TAB PO SCH ×2 (08:36→21:05)
[2023-09-16] MEDS: FOLIC ACID 1 MG TAB PO SCH (08:36)
[2023-09-16] MEDS: SERTRALINE 50 MG TAB PO SCH (08:36)
[2023-09-16 09:01] LABS: Anisocytosis Slight; HCT 30.2 % (39.0-53.0); HGB 9.2 gm/dL (13.0-17.5); Hypochromasia Marked; MCH 29.2 pg (25.0-35.0); MCHC 30.6 g/dL (31.0-37.0); MCV 95.5 fL (80.0-100.0); Macrocytosis Slight; Mean Platelet Volume 9.3; Platelet Count 176 k/uL (150-450); RBC 3.16 m/uL (4.30-5.90); RDW 19.3 % (11.5-15.5); WBC 8.6 k/uL (3.8-10.6)
[2023-09-16 09:06] LABS: African American GFR (CKD) >90 (>60 ml/min/1.73 sqM); Anion Gap 9 mmol/L; Blood Urea Nitrogen 7 mg/dL (9-20); Calcium 8.9 mg/dL (8.4-10.2); Carbon Dioxide 24 mmol/L (22-30); Chloride 101 mmol/L (98-107); Glucose 110 mg/dL (74-99); Non-African American GFR(CKD) >90 (>60 ml/min/1.73 sqM); Potassium 4.1 mmol/L (3.5-5.1); Sodium 134 mmol/L (137-145)
[2023-09-16] MEDS: LORazepam 2 MG/ML INJ IV PRN ×4 (10:37→22:35)
[2023-09-16 11:40] LABS: Glucose,Whole Blood 123 mg/dL (70-110)
[2023-09-16 16:42] LABS: Glucose,Whole Blood 148 mg/dL (70-110)
--- NOTE | 2023-09-16 19:18 | P.PN ---
Subjective Progress Note Date: 09/16/23 (delayed charting seen at 1130) Patient is a 58-year-old male with chronic atrial fibrillation on anticoagulation with Eliquis, hypertension, dyslipidemia, nicotine dependency, and alcohol dependency who presented to the hospital with complaints of severe alcohol withdrawal after his had alcohol within the house. In the ER he underwent an extensive evaluation. He was found to have elevated INR at 1.4, sodium 1:30, chloride 75, bicarb 17, anion gap 18, glucose 201, lactic acid 6.3, magnesium 1, AST 80, alkaline phosphatase of 120, troponin less than 0.012, BNP 1440, TSH of 0.78. He was administered for alcohol withdrawal and alcoholic ketosis. He was started on scheduled Librium and CIWA protocol with Ativan. Cardiology was consulted and recommended continuing flecainide and metoprolol. He reports that he is feeling increasingly agitated today. His rib pain is bett er. He still feels unsteady and is unsure if he is stable enough to go home. He has no other complaints currently. He has not called [place], with a plan for discharge. Vital signs reviewed General: nontoxic, mild distress secondary to pain, appears at stated age Cardiovascular: S1S2 reg, no murmur, positive posterior tibial pulse bilateral, Lungs: Decreased breath sounds bilateral bilateral, no rhonchi, no rales , no accessory muscle use, pain to palpation of left ribs Abdominal: soft, nontender to palpation, no guarding, no appreciable organomegaly Ext: no gross muscle atrophy, no edema b/l lower extremities, no contractures Neuro: CN II-XI grossly intact, no focal neuro deficits Psych: Alert, oriented, appropriate affect Assessment/Plan: Acute Alcohol withdrawal with DTs Elevated liver enzymes, secondary to daily alcohol abuse and underlying alcoholic cirrhosis Elevated PT/INR secondary to probable alcohol cirrhosis Fall with rib contusion Thrombocytopenia, anemia suspect secondary to alcohol use - Continue Librium 25 mg 3 times daily -Continue monitoring CIWA scores with Ativan dosing per score ranging between 0.5-2 mg, Ativan requirements in the last 24 hours 2 mg -Thiamine 100 mg twice daily, multivitamin daily, folic 1 mg by mouth daily - Motrin 600 mg QID prn pain, if pain is still uncontrolled have flexeril 5 mg TID to use- discussed ith nursing -Repeat CBC in a.m. regarding worsening anemia and thrombocytopenia. Repeat BMP in a.m. for monitoring of renal function due to NSAID use Atrial fibrillation, rapid ventricular response resolved HLD - Eliquis 5 mg twice daily, atorvastatin 20 mg daily, fenofibrate 160 mg daily, metoprolol 75 mg twice daily, and flecainide 50 mg every 12 hours. - Cardio note reviewed: follow-up in office in 2 weeks, will sign off Alcoholic ketoacidosis, resolved Hypomagnesemia, secondary to daily alcohol abuse, resolved Hyponatremia, secondary to daily alcohol abuse, resolved Imaging: Left upper extremity venous Doppler: No DVT, possible thrombosis of the superficial vein at old IV site. Per Hospital course: CXR: mild thickening of the right paratracheal stripe CT head: Age-related atrophic and small vessel ischemic changes without acute intracranial process CTA chest: No acute process, azygous lobe present on the right anatomic merriment likely accounting for appearance on chest x-ray Data Review: Labs from today are reviewed include CBC and basic metabolic profile which are remarkable for hemoglobin 9.2, sodium 134 DVT prophylaxis: eliquis Anticipated discharge date: in AM Anticipated discharge place: home This dictation was prepared using [employer] voice recognition software. Though every attempt is made to correct errors during dictation some may still exist. Objective - Vital Signs Vital signs: Vital Signs Temp 97.3 F L 09/16/23 16:50 Pulse 95 09/16/23 16:50 Resp 20 09/16/23 16:50 BP 119/63 09/16/23 16:50 Pulse Ox 96 09/16/23 16:50 FiO2 Intake & Output 09/16/23 09/16/23 09/17/23 06:59 18:59 06:59 Intake Total 1078 Balance 1078 Intake: Oral 1078 Other: Voiding Method Toilet Urinal # Voids 3 4 - Labs CBC & Chem 7: 09/16/23 07:17 09/16/23 07:17 Labs: Abnormal Lab Results - Last 24 Hours (Table) 09/15/23 09/16/23 09/16/23 Range/Units 20:15 06:12 07:17 RBC 3.16 L (4.30-5.90) m/uL Hgb 9.2 L (13.0-17.5) gm/dL Hct 30.2 L (39.0-53.0) % MCHC 30.6 L (31.0-37.0) g/dL RDW 19.3 H (11.5-15.5) % Sodium (137-145) mmol/L BUN (9-20) mg/dL Creatinine (0.66-1.25) mg/dL Glucose (74-99) mg/dL POC Glucose (mg/dL) 157 H 128 H (70-110) mg/dL 09/16/23 09/16/23 09/16/23 Range/Units 07:17 11:38 16:40 RBC (4.30-5.90) m/uL Hgb (13.0-17.5) gm/dL Hct (39.0-53.0) % MCHC (31.0-37.0) g/dL RDW (11.5-15.5) % Sodium 134 L (137-145) mmol/L BUN 7 L (9-20) mg/dL Creatinine 0.53 L (0.66-1.25) mg/dL Glucose 110 H (74-99) mg/dL POC Glucose (mg/dL) 123 H 148 H (70-110) mg/dL
[2023-09-16 20:09] LABS: Glucose,Whole Blood 135 mg/dL (70-110)
[2023-09-16] MEDS: ATORVASTATIN 20 MG TAB PO SCH (21:05)
[2023-09-16] MEDS ORDERED: MELATONIN 5 MG TABLET PO PRN (23:11)
[2023-09-17 00:24] VITALS: RESP 20
[2023-09-17] MEDS: LORazepam 2 MG/ML INJ IV PRN (00:31)
[2023-09-17 06:10] LABS: Glucose,Whole Blood 129 mg/dL (70-110)
[2023-09-17] MEDS: INSULIN ASPART (NovoLOG) 100 UNIT/ML VIAL SQ SCH ×2 (06:15→12:06)
[2023-09-17] MEDS: PANTOPRAZOLE 40 MG TABLET PO SCH (06:36)
[2023-09-17] MEDS: APIXABAN 5 MG TAB PO SCH (09:45)
[2023-09-17] MEDS: THIAMINE 100 MG TAB PO SCH (09:45)
[2023-09-17] MEDS: chlordiazePOXIDE 25 MG CAP PO SCH (09:45)
[2023-09-17] MEDS: FOLIC ACID 1 MG TAB PO SCH (09:45)
[2023-09-17] MEDS: MAGNESIUM OXIDE 400 MG TAB PO SCH (09:45)
[2023-09-17] MEDS: FENOFIBRATE 160 MG TAB PO SCH (09:45)
[2023-09-17] MEDS: MULTIVITAMINS, THERA 1 EACH TAB PO SCH (09:46)
[2023-09-17] MEDS: SERTRALINE 50 MG TAB PO SCH (09:46)
[2023-09-17] MEDS: FLECAINIDE 50 MG TAB PO SCH (09:46)
[2023-09-17] MEDS: METOPROLOL TARTRATE 25 MG TAB PO SCH (09:46)
[2023-09-17 10:43] VITALS: TEMP 98
[2023-09-17] MEDS ORDERED: SULFAMETHOX-TMP 800-160MG 1 EACH TAB PO SCH (11:00)
[2023-09-17 11:41] LABS: Glucose,Whole Blood 141 mg/dL (70-110)
--- NOTE | 2023-09-17 13:02 | P.DS ---
Providers Date of admission: 09/12/23 15:22 Expected date of discharge: 09/17/23 Attending physician: Mode Castillo MD Consults: 09/12/23 15:22 Consult Physician Routine Consulting Provider: Cindi Meza Consult Reason/Comments: [email or web address] Do you want consulting provider notified?: Yes Primary care physician: [facility] Course: Discharge Diagnosis: Acute Alcohol withdrawal with DTs Elevated liver enzymes, secondary to daily alcohol abuse and underlying alcoholic cirrhosis Elevated PT/INR secondary to probable alcohol cirrhosis Fall with rib contusion Left upper extremity superficial thrombophlebitis Alcoholic ketoacidosis Hypomagnesemia Hyponatremia Atrial fibrillation, rapid ventricular response HLD Hospital Course: Patient is a 58-year-old male with chronic atrial fibrillation on anticoagulation with Eliquis, hypertension, dyslipidemia, nicotine dependency, and alcohol dependency who presented to the hospital with complaints of severe alcohol withdrawal after his had alcohol within the house. In the ER he underwent an extensive evaluation. He was found to have elevated INR at 1.4, sodium 1:30, chloride 75, bicarb 17, anion gap 18, glucose 201, lactic acid 6.3, magnesium 1, AST 80, alkaline phosphatase of 120, troponin less than 0.012, BNP 1440, TSH of 0.78. He was administered for alcohol withdrawal and alcoholic ketosis. He was started on scheduled Librium and CIWA protocol with Ativan. Cardiology was consulted and recommended continuing flecainide and metoprolol. His withdrawal symptoms continued to improve. He did have an IV infiltrate in his left arm and developed a superficial thrombophelbitis. His librium was decreased slowly. He had wanted discharge on 09/06/23 but it appeared he was slightly more agitated than the day and before and he was monitored an additional 24 hours. On the morning of 09/17 he was complaining of wanting to go home to sleep and appeared slightly sedated. His family was present at bedside. They felt comfortable taking him home. We discussed that his sedation is likely due to the librium and ativan being used to treat his alcohol withdrawal. Patient was subsequently discharged. We did consider starting naltrexone, however on arrival AST was 72 and it was determined that the best approach would be for him to discuss this with Dr. Tamayo who could monitor liver functions if this medication was started. Follow-Up: Dr. Borgeil in 1-2 days, family supervision for the next 24 hours, Bactrim for 5 days. Follow-up with cardiology in 1-2 weeks. Patient seen and examined at bedside. He is feeling tired and that he wants to sleep in his own bed, he is unable to get comfortable here. He as not yet called [facility]. He wants to be discharge, family at bedside feels comfortable with discharge apparently the patient had been getting his shoes on earlier this morning. His rib pain is better. Vital signs reviewed and stable. General: nontoxic, no distress, appears at stated age Cardiovascular: S1S2 reg, no murmur, positive posterior tibial pulse bilateral, Lungs: CTA bilateral, no rhonchi, no rales , no accessory muscle use Neuro: CN II-XI grossly intact, no focal neuro deficits Psych: Awake, oriented, appropriate affect A total of 33 minutes of time were spent preparing this complex discharge summary. Patient was discharged on 09/17/23. This dictation was prepared using [employer] voice recognition software. Though every attempt is made to correct errors during dictation some may still exist. Patient Condition at Discharge: Serious Plan - Discharge Summary Discharge Rx Participant: No New Discharge Prescriptions: New Sulfamethox-Tmp 800-160Mg [Bactrim DS 800-160 mg] 1 each PO BID #9 tab Ibuprofen [Motrin] 600 mg PO QID PRN #20 tab PRN Reason: Pain Continue gemfibroziL [Lopid] 600 mg PO BID Omeprazole 20 mg PO DAILY Rosuvastatin [Crestor] 10 mg PO HS Sertraline [Zoloft] 50 mg PO DAILY Metoprolol Tartrate [Lopressor] 75 mg PO BID Folic Acid 1 mg PO DAILY Apixaban [Eliquis] 5 mg PO BID #60 tab Flecainide [Tambocor] 50 mg PO Q12HR Thiamine [Vitamin B-1] 100 mg PO DAILY Discontinued Cyclobenzaprine [Flexeril] 10 mg PO DAILY PRN PRN Reason: Spasms Furosemide [Lasix] 20 mg PO DAILY Discharge Medication List Omeprazole 20 mg PO DAILY 12/03/19 [History] Rosuvastatin [Crestor] 10 mg PO HS 12/03/19 [History] gemfibroziL [Lopid] 600 mg PO BID 12/03/19 [History] Apixaban [Eliquis] 5 mg PO BID #60 tab 08/07/22 [Rx] Flecainide [Tambocor] 50 mg PO Q12HR 09/12/23 [History] Folic Acid 1 mg PO DAILY 09/12/23 [History] Metoprolol Tartrate [Lopressor] 75 mg PO BID 09/12/23 [History] Sertraline [Zoloft] 50 mg PO DAILY 09/12/23 [History] Thiamine [Vitamin B-1] 100 mg PO DAILY 09/12/23 [History] Ibuprofen [Motrin] 600 mg PO QID PRN #20 tab 09/17/23 [Rx] Sulfamethox-Tmp 800-160Mg [Bactrim DS 800-160 mg] 1 each PO BID #9 tab 09/17/23 [Rx] Follow up Appointment(s)/Referral(s): Errol Mcmullen MD [Primary Care Provider] - 1-2 days Jason Gabriel DO [STAFF PHYSICIAN] - 1 Week Patient Instructions/Handouts: Alcohol Use Disorder (DC) Activity/Diet/Wound Care/Special Instructions: Activity: As tolerated Diet: Heart Healthy Special Instructions: He should be monitored closely at home supervision for the next 24-48 hours and the Librium continues to wear his system Abstain from alcohol Keep left arm elevated. May alternate warm and cold compresses. Please follow up with Dr. Mcmullen to discuss initiation of naltrexone/Revia with monitoring of liver tests to help maintain sobriety Thank you for trusting us with your care. We wish you well on your journey to better health. Discharge/Stand Alone Forms: AA Meetings [place], [facility] Resources, Outpatient Counseling, In Substance Abuse Facilities Discharge Disposition: HOME SELF-CARE
[2023-09-17 13:09] VITALS: BP 110/68; PULSE 71
== END 2023-09-17 14:17 | disposition home or self-care (01) | DRG 897 ==
LOC: EC 13:46 → 3SCARD 15:22
PROVIDERS: ADMIT Internal Medicine; ATTEND Internal Medicine
DX: F10.231 Alcohol dependence with withdrawal delirium (principal); E87.29 Other acidosis; I48.20 Chronic atrial fibrillation, unspecified; E87.1 Hypo-osmolality and hyponatremia; I80.8 Phlebitis and thrombophlebitis of other sites; D69.59 Other secondary thrombocytopenia; E86.0 Dehydration; S20.219A Contusion of unspecified front wall of thorax, initial encounter; D64.9 Anemia, unspecified; K70.30 Alcoholic cirrhosis of liver without ascites; Z20.822 Contact with and (suspected) exposure to COVID-19; E87.6 Hypokalemia; E87.8 Other disorders of electrolyte and fluid balance, not elsewhere classified; E83.42 Hypomagnesemia; I10 Essential (primary) hypertension; E78.5 Hyperlipidemia, unspecified; S00.81XA Abrasion of other part of head, initial encounter; G47.9 Sleep disorder, unspecified; R79.1 Abnormal coagulation profile; R74.8 Abnormal levels of other serum enzymes; Z79.01 Long term (current) use of anticoagulants; Z79.899 Other long term (current) drug therapy; Z87.891 Personal history of nicotine dependence; Z71.41 Alcohol abuse counseling and surveillance of alcoholic; W19.XXXA Unspecified fall, initial encounter
CPT/HCPCS: 36415; 70450; 71046; 71260; 80048; 80053; 80306; 83036; 83605; 83735; 83880; 84100; 84443; 84484; 85025; 85027; 85610; 85730; 87636; 93005; 94760; 96365; 96366; 96368; 96372; 96375; 96376; 99291

== ENCOUNTER 2024-10-08 06:37 | Day surgery (SDC) | payer BC, OTHER ==
[2024-10-07 11:34] VITALS: BMI 31.4
[~2024-10-08 06:37] MED LIST: SODIUM CHLORIDE 0.9% 1,000 ML IV SCH
[2024-10-08] MEDS: IV FLUID CONTINUATION 1,000 ML IV ONE (06:55)
[2024-10-08] MEDS ORDERED: PROPOFOL 10 MG/ML 20 ML VIAL IV ONE (07:45)
[2024-10-08] MEDS ORDERED: LIDOCAINE 1% INJ 10MG/ML (20 ML MDV) ONE (07:45)
[2024-10-08 09:06] VITALS: RESP 18
[2024-10-08 09:33] VITALS: BP 142/81; PULSE 58
--- NOTE | 2024-10-08 13:08 | P.PCN ---
Date of Procedure: 10/08/24 Operative Findings: Cardioversion Report Performing physician Jose Albert M.D. Procedure performed Successful cardioversion of atrial fibrillation to normal sinus mechanism using 200 J at first attempt Indication Symptomatic atrial fibrillation Complication None Level of sedation The procedure was performed under deep sedation using propofol with STOCK TRACER in the room Procedure description After obtaining an informed consent the patient was brought to the recovery room. Sedation was introduced using propofol with STOCK TRACER in the room. Subsequently the patient cardioverted from atrial fibrillation to normal sinus mechanism using 200 J and first attempt Conclusion Successful cardioversion of atrial fibrillation to normal sinus mechanism using 200 J Postprocedure management Continue the current medical regimen Continue oral anticoagulation Follow-up with the patient
== END 2024-10-08 09:36 | disposition home or self-care (01) ==
LOC: OR 06:37
PROVIDERS: ATTEND Internal Medicine Interventional Cardiology
DX: I48.0 Paroxysmal atrial fibrillation (principal); I10 Essential (primary) hypertension; I48.3 Typical atrial flutter; E78.5 Hyperlipidemia, unspecified; Z82.49 Family history of ischemic heart disease and other diseases of the circulatory system; Z87.891 Personal history of nicotine dependence; Z79.899 Other long term (current) drug therapy; Z79.01 Long term (current) use of anticoagulants
CPT/HCPCS: 92960; J2003; J2704

== ENCOUNTER 2024-11-07 17:03 | Emergency (ER) | payer OTHER ==
[2024-11-07 17:19] VITALS: RESP 18; TEMP 97.3
--- NOTE | 2024-11-07 17:31 | ED ---
Neuro HPI - General Source: patient, RN notes reviewed Mode of arrival: ambulatory Limitations: no limitations - History of Present Illness Is the patient presenting with stroke symptoms?: Yes Last Known Well Date: 11/06/24 Last Known Well Time: 20:00 Onset/Timin -: hour(s) Location: right face, dysarthria, right arm History of same: No Place: home Quality: numb Improves With: none Worsens With: none On Anticoagulants: Yes (Eliquis) Context: sudden onset Associated Symptoms: denies other symptoms <Aurelio Casas - Last Filed: 11/07/24 18:04> - General Source: patient, family, RN notes reviewed Mode of arrival: ambulatory Limitations: no limitations <Blayne Gee - Last Filed: 11/07/24 20:08> - General Chief Complaint: Neuro Symptoms/Deficit Stated Complaint: Poss Stroke Time Seen by Provider: 11/07/24 17:11 - History of Present Illness Initial Comments: Quick note: This is a 59-year-old male with history of A-fib presenting with right facial numbness since 1999 last night. Patient states his face "feels weird" and is unable to completely close his right eye. Also notes changes in speech and inability to properly enunciate. Endorses cardioversion for A-fib with Dr. Lamb last month on October 08. Endorses use of Eliquis. Endorses history of bilateral hand and foot paresthesia and is unable to determine if there is any new sensation changes in extremities. (Aurelio Casas) Patient is a 59-year-old male present to the emergency department with concerns of right facial numbness and weakness. Onset of symptoms was last night. Patient did have some headache that was mild. No extremity weakness. Patient has tingling throughout. No difficulty with walking or confusion. Patient has difficulty with weakness on the right side of the face and he has difficulty with shutting his eye completely (Blayne Gee) - Related Data Home Medications: Home Medications Medication Instructions Recorded Confirmed Flecainide [Tambocor] 50 mg PO Q12HR 09/12/23 10/08/24 Metoprolol Tartrate [Lopressor] 75 mg PO BID 09/12/23 10/08/24 Gabapentin [Neurontin] 100 mg PO TID 10/07/24 10/08/24 Previous Rx's Medication Instructions Recorded Apixaban [Eliquis] 5 mg PO BID #60 tab 08/07/22 predniSONE [Deltasone] 3 tab PO DAILY #18 tab 11/07/24 valACYclovir HCL [Valtrex] 1 tab PO TID #20 tablet 11/07/24 Allergies/Adverse Reactions: Allergies Allergy/AdvReac Type Severity Reaction Status Date / Time No Known Allergies Allergy Verified 11/07/24 17:12 Review of Systems ROS Other: All systems not noted in ROS Statement are negative. <Aurelio Casas - Perfecto Filed: 11/07/24 18:04> ROS Other: All systems not noted in ROS Statement are negative. Constitutional: Denies: fever Eyes: Reports: as per HPI ENT: Denies: ear pain Respiratory: Denies: cough, dyspnea Cardiovascular: Denies: chest pain Endocrine: Denies: fatigue Gastrointestinal: Denies: abdominal pain Neurological: Reports: as per HPI. Denies: confusion, abnormal gait <Blayne Gee Filed: 11/07/24 20:08> ROS Statement: Those systems with pertinent positive or pertinent negative responses have been documented in the HPI. General Exam Limitations: no limitations <Aurelio Casas Filed: 11/07/24 18:04> Limitations: no limitations General appearance: alert, in no apparent distress Head exam: Present: normocephalic Eye exam: Present: normal appearance, PERRL, EOMI ENT exam: Present: normal oropharynx Neck exam: Present: normal inspection Respiratory exam: Present: normal lung sounds bilaterally Cardiovascular Exam: Present: regular rate, normal rhythm GI/Abdominal exam: Present: soft. Absent: tenderness Extremities exam: Present: normal inspection Neurological exam: Present: alert, oriented X3 Expanded Cranial nerves: EOM's Intact: Normal, Facial Sensation: Normal, Facial Palsy without Forehead Movement: Abnormal Right (Right facial weakness that includes the forehead and includes difficulty closing right eyelid) Cerebellar function: Finger to Nose: Normal Sensory exam: Upper Extremity Light Touch: Normal, Lower Extremity Light Touch: Normal Motor strength exam: RUE: 5, LUE: 5, RLE: 5, LLE: 5 Eye Response: (4) open spontaneously Motor Response: (6) obeys commands Verbal Response: (5) oriented Psychiatric exam: Present: normal affect, normal mood Skin exam: Present: normal color <Blayne Gee Filed: 11/07/24 20:08> - General Exam Comments Initial Comments: Visual Physical Exam Vital signs reviewed General: Well-appearing, nontoxic, no acute distress. Head: Normocephalic, atraumatic Eyes: PERRLA, EOMI ENT: Airway patent Chest: Nonlabored breathing Skin: No visual rash, normal skin tone Neuro: Alert and oriented 3. [place] stroke shows right facial drooping without pronator drift. Patient unable to fully close right eye Musculoskeletal: No gross abnormalities (Aurelio Casas) Stroke MDM <Aurelio Casas - Last Filed: 11/07/24 18:04> <Blayne Gee - Last Filed: 11/07/24 20:08> - Medical Decision Making I completed the quick note portion of this chart signed PALOMA Cooney (Aurelio Casas) Was pt. sent in by a medical professional or institution ([employer], [employer], urgent care, hospital, or fci...) When possible be specific @ -No Did you speak to anyone other than the patient for history (EMS, parent, family, police, friend...)? What history was obtained from this source @ -No Did you review nursing and triage notes (agree or disagree)? Why? @ -I reviewed and agree with nursing and triage notes Were old charts reviewed (outside hosp., previous admission, EMS record, old EKG, old radiological studies, urgent care reports/EKG's, fci records)? Report findings @ -No old charts were reviewed Differential Diagnosis (chest pain, altered mental status, abdominal pain women, abdominal pain men, vaginal bleeding, weakness, fever, dyspnea, syncope, headache, dizziness, GI bleed, back pain, seizure, CVA, palpatations, mental health, musculoskeletal)? @ -Differential Weakness: Hypoglycemia, shock, sepsis, hyponatremia, anemia, infection, HI, ETOH, adverse medicine reaction, overdose, stroke, this is not meant to be an all-inclusive list. EKG interpreted by me (3pts min.). @ -As above X-rays interpreted by me (1pt min.). @ -None done CT interpreted by me (1pt min.). @ -CT scan of the brain reveals no acute abnormality U/S interpreted by me (1pt. min.). @ -None done What testing was considered but not performed or refused? (CT, X-rays, U/S, labs)? Why? @ -None What meds were considered but not given or refused? Why? @ -None Did you discuss the management of the patient with other professionals (professionals i.e. , PA, [employer], lab, RT, psych nurse, social science manager, upholstery cleaner, teacher, tactical debriefer officer, family service caseworker)? Give summary @ -No Was smoking cessation discussed for >3mins.? @ -No Was critical care preformed (if so, how long)? @ -No Were there social determinants of health that impacted care today? How? (Homelessness, low income, unemployed, alcoholism, drug addiction, transportat ion, low edu. Level, literacy, decrease access to med. care, custodial, rehab)? @ -No Was there de-escalation of care discussed even if they declined (Discuss DNR or withdrawal of care, Hospice)? DNR status @ -No What co-morbidities impacted this encounter? (DM, HTN, Smoking, COPD, CAD, Cancer, CVA, ARF, Chemo, Hep., AIDS, mental health diagnosis, sleep apnea, morbid obesity)? @ -History of Eliquis Was patient admitted / discharged? Hospital course, mention meds given and route, prescriptions, significant lab abnormalities, going to OR and other pertinent info. @ -Patient present with right sided facial weakness that does include the forehead, consistent with Wisdom's palsy. CT scan was done secondary to patient having mild headache and being on anticoagulant. CT head unremarkable. Patient reevaluated. Patient and family updated. Undiagnosed new problem with uncertain prognosis? @ -No Drug Therapy requiring intensive monitoring for toxicity (Heparin, Nitro, Insulin, Cardizem)? @ -No Were any procedures done? @ -No Diagnosis/symptom? @ -Wisdom's palsy Acute, or Chronic, or Acute on Chronic? @ -Acute Uncomplicated (without systemic symptoms) or Complicated (systemic symptoms)? @ -Default Side effects of treatment? @ -No Exacerbation, Progression, or Severe Exacerbation? @ -No Poses a threat to life or bodily function? How? (Chest pain, [place], HI, pneumonia, PE, COPD, DKA, ARF, appy, cholecystitis, CVA, Diverticulitis, Homicidal, Suicidal, threat to staff... and all critical care pts) @ -No (Blayne Gee) Past Medical History Past Medical History: Atrial Fibrillation, Hyperlipidemia, Hypertension Additional Past Medical History / Comment(s): NOT CURRENTLY TAKING CHOLESTROL MED History of Any Multi-Drug Resistant Organisms: None Reported Additional Past Surgical History / Comment(s): rt bicep surgery, CARDIOVERSION Past Anesthesia/Blood Transfusion Reactions: No Reported Reaction Past Psychological History: No Psychological Hx Reported Smoking Status: Former smoker Past Alcohol Use History: None Reported Past Drug Use History: None Reported - Past Family History Father History Unknown: Yes <Aurelio Casas - Last Filed: 11/07/24 18:04> Course Vital Signs 11/07/24 17:12 Temperature 97.3 F L Pulse Rate 59 L Respiratory 18 Rate Blood Pressure 163/76 O2 Sat by Pulse 96 Oximetry Disposition <Aurelio Casas - Last Filed: 11/07/24 18:04> Is patient prescribed a controlled substance at d/c from ED?: No Time of Disposition: 20:06 <Blayne Gee - Last Filed: 11/07/24 20:08> Clinical Impression: Wisdom's palsy Disposition: HOME SELF-CARE Condition: Stable Instructions (If sedation given, give patient instructions): Wisdom Palsy (ED) Additional Instructions: Prescription sent to pharmacy, please start in the morning. Please do follow-up with your primary care physician next couple days for recheck. Lacri-Lube or similar to right eye 4 times daily and prior to going to sleep. Tape your right eye shut at nighttime to avoid scratching. Return for confusion, other areas of weakness, worsening symptoms or other concerns. Prescriptions: predniSONE [Deltasone] 3 tab PO DAILY #18 tab valACYclovir HCL [Valtrex] 1 tab PO TID #20 tablet Referrals: Errol Mcmullen MD [Primary Care Provider] - 1-2 days
--- NOTE | 2024-11-07 18:46 | CT ---
EXAMINATION TYPE: CODE STROKE: CT brain wo contr DATE OF EXAM: 11/07/2024 6:41 PM COMPARISON: None. CLINICAL INDICATION: Male, 59 years old with history of Neuro deficit, acute, stroke suspected, Pt to ED for R side facial weakness/numbness that began last night around 2200. States R hand tingling wo rse than usual and he had a headache on the R side last night. States speech is slightly off as well . TECHNIQUE: CT of the brain is performed utilizing 3 mm thick sections through the posterior fossa and 3 mm thick sections through the remaining calvarium. Study is performed within 24 hours of arrival to the hospital. Contrast used: mL of , (none if empty) CT DLP: Combined 1876.5 mGycm, Automated exposure control for dose reduction was used. FINDINGS: No abnormal hyperdensity is present to suggest an acute intracranial hemorrhage. No mass lesion is evident. No acute infarcts are evident. Ventricles and sulci are appropriate for the patient age. Mucosal thickening opacifications through the maxillary sinuses and ethmoid air cells. Sphenoid sinus es and frontal sinuses are clear. IMPRESSION: 1. No acute intracranial process. Follow up MRI can be performed as clinically indicated. 2. Chronic sinusitis bilateral maxillary sinuses [facility], Workstation: [facility], 11/07/2024 6:43 PM
--- NOTE | 2024-11-07 19:52 | CT ---
EXAMINATION TYPE: CT angio head neck DATE OF EXAM: 11/07/2024 7:28 PM COMPARISON: None. CLINICAL INDICATION: Male, 59 years old with history of Neuro deficit, acute, stroke suspected, Pt to ED for R side facial weakness/numbness that began last night around 2200. States R hand tingling wo rse than usual and he had a headache on the R side last night. States speech is slightly off as well . TECHNIQUE: CTA scan is performed with axial images are obtained, coronal and sagittal reformatted elva ges are reviewed. 3-D reconstructed images are created on an independent workstation and reviewed. [facility] [place] are reviewed. NASCET criteria was used in interpretation of this exam? Contrast used:65cc mL of Isovue 370 with IV Contrast, (none if empty) Oral contrast used: (none if empty) CT DLP: Combined 1876.5 mGycm, Automated exposure control for dose reduction was used. FINDINGS: Carotid/Vascular Structures: There is a 2 vessel arch. There is common origin of the right subclavian and left common carotid arteries Common carotid arteries bifurcate into internal and external carotid arteries without significant carrillo w limiting stenosis. Atheromatous calcification is present bilaterally. Right vertebral artery is dominant. Internal carotid arteries and vertebral arteries are patent to the skull base. Cervical of [place]: Vertebral basilar system appears normal. Posterior cerebral vasculature is unrema rkable. Internal carotid arteries bifurcate normally into A1 and M1 segments. A2 segments are normal. The anterior communicating artery is patent. History communicating arteries appear absent. Other: Because of thickening is in the bilateral maxill jovani sinuses and ethmoid air cells. Correlate for chronic sinusitis. IMPRESSION: 1. No flow-limiting stenosis bilateral carotid bifurcations. 2. Normal [place] of [place] [facility], Workstation: [facility], 11/07/2024 7:50 PM
[2024-11-07] MEDS: predniSONE 20 MG TAB PO STA (20:56)
[2024-11-07] MEDS: valACYclovir HCL 1,000 MG TABLET PO STA (20:56)
[2024-11-07 20:58] VITALS: BP 161/78; PULSE 60
== END 2024-11-07 21:01 | disposition home or self-care (01) ==
LOC: EC 17:03
DX: G51.0 Bell's palsy (principal); I48.91 Unspecified atrial fibrillation; Z87.891 Personal history of nicotine dependence; Z79.01 Long term (current) use of anticoagulants
CPT/HCPCS: 70496; 70450; 70498; 99284; J7512; Q9967